=== PATIENT | male | born 1965 | race Caucasian/White ===

== ENCOUNTER → 2020-03-01 10:32 | Outpatient (BNVA) | payer OTHER, SELFPAY | PROVIDERS: PCP Family Medicine; Visit Provider Surgery | DX: Z01.818 Encounter for other preprocedural examination (principal); Z86.010 Personal history of colon polyps | CPT/HCPCS: 99202 ==

== ENCOUNTER 2020-04-23 11:05 | Day surgery (SDC) | payer OTHER, SELFPAY ==
[2020-04-19 09:40] VITALS: BMI 26.6
--- NOTE | 2020-04-21 09:48 | P.CONAN_ITS ---
HPI - Anesthesia Eval Consult details Narrative: 55yo M for Colonoscopy [facility] Past Medical History Medical History Anxiety Asthma Bipolar disorder Colon cancer screening Erectile dysfunction History of adenomatous polyp of colon History of tibial fracture Hypertension Mood disorder Pain Surgical History Surgical History Hx of left inguinal hernia repair S/P trigger finger release (Unknown) Social History Social History Alcohol intake: current Alcohol intake frequency: a few times a week Smoking Status: Never smoker Meds Allergies Allergy/AdvReac Type Severity Reaction Status Date / Time morphine [Morphine] Allergy Intermediate RASH Verified 04/23/20 11:17 penicillin G [Penicillin G] Allergy Intermediate RASH Verified 04/23/20 11:17 Home Medications Medication Instructions Recorded Confirmed Type albuterol sulfate 2.5 mg INHALATION Q4-6H PRN 02/26/20 04/19/20 History amlodipine 2.5 mg tablet 2.5 mg PO DAILY 02/26/20 04/19/20 History fluoxetine 20 mg capsule 20 mg PO DAILY 02/26/20 04/19/20 History gabapentin 800 mg tablet 800 mg PO BID 02/26/20 04/19/20 History hydroxyzine HCl 25 mg tablet 25 mg PO BEDTIME 02/26/20 04/19/20 History montelukast 10 mg tablet 10 mg PO DAILY 02/26/20 04/19/20 History quetiapine 25 mg tablet 25 mg PO DAILY 02/26/20 04/19/20 History albuterol sulfate 90 mcg/actuation 1 inh INHALATION QID 03/01/20 04/19/20 History aerosol inhaler ibuprofen 800 mg tablet 800 mg PO Q8H PRN 03/01/20 04/19/20 History oxycodone-acetaminophen 1 tab PO Q6H PRN 04/19/20 04/19/20 History tramadol 1 tab PO BID PRN 04/19/20 04/19/20 History Exam Exam Date and Time: April 21, 2020 0948 Height,Weight and Vital Signs: Height 5 ft 8 in Weight 79.379 kg Assessment and Plan Assessment Anesthesia Assessment: Chart Reviewed
[2020-04-23 11:19] VITALS: BP 133/78; PULSE 57; RESP 16; TEMP 35.9; O2SAT 98
--- NOTE | 2020-04-23 11:29 | MHC.SHP ---
Pre-Procedural Eval Section B Chief Complaint: History of Adenomatous Polyp of Colon,Screening Details of Present Illness: for screening colonoscopy Relevant Family History (Specify if Yes): No Relevant Social History: Alcohol Use Present Medications: see Short Stay Collaborative assessment Medical History: Significant History (bipolar d/o, HTN, asthma) History of Previous Operations: No relevant previous surgery Allergies: Allergies Allergy/AdvReac Type Severity Reaction Status Date / Time morphine [Morphine] Allergy Intermediate RASH Verified 04/23/20 11:17 penicillin G [Penicillin G] Allergy Intermediate RASH Verified 04/23/20 11:17 Review of Systems Sugical H&P ROS: Negative: Constitution, Cardiovascular, Respiratory, Neurological, Psychiatric, Hem-Onc, Allergic/Immunologic, Gastrointestinal, Genitourinary, Musculoskeletal, Integumentary, Endocrine and Eyes/Ears/Nose/Throat Exam Surgical H&P Exam: Normal: HEENT, Normal: Heart, Normal: Lungs, Normal: Extremities, Normal: Abdomen, Normal: Skin and Normal: Neurological Plan Diagnosis/Plan: Unchanged I have reviewed the history and physical and performed a pertinent physical examination on my patient. No changes have occurred unless specified.
[2020-04-23] MEDS: Lactated Ringers 1,000 ML 100 ML IVCONT (11:30)
--- NOTE | 2020-04-23 11:30 | HO.ANESPROP2 ---
[facility] Past Medical History Medical History Anxiety Asthma Bipolar disorder Colon cancer screening Erectile dysfunction History of adenomatous polyp of colon History of tibial fracture Hypertension Mood disorder Pain Surgical History Surgical History Hx of left inguinal hernia repair S/P trigger finger release (Unknown) Social History Social History Alcohol intake: current Alcohol intake frequency: a few times a week Smoking Status: Never smoker Use of substances other than those prescribed or required for medical reasons: Unknown Advance Directives: No Advance Directives Information Provided: No Advance Directives on File: No Meds Allergies Allergy/AdvReac Type Severity Reaction Status Date / Time morphine [Morphine] Allergy Intermediate RASH Verified 04/23/20 11:17 penicillin G [Penicillin G] Allergy Intermediate RASH Verified 04/23/20 11:17 Home Medications Medication Instructions Recorded Confirmed Type albuterol sulfate 2.5 mg INHALATION Q4-6H PRN 02/26/20 04/19/20 History amlodipine 2.5 mg tablet 2.5 mg PO DAILY 02/26/20 04/19/20 History fluoxetine 20 mg capsule 20 mg PO DAILY 02/26/20 04/19/20 History gabapentin 800 mg tablet 800 mg PO BID 02/26/20 04/19/20 History hydroxyzine HCl 25 mg tablet 25 mg PO BEDTIME 02/26/20 04/19/20 History montelukast 10 mg tablet 10 mg PO DAILY 02/26/20 04/19/20 History quetiapine 25 mg tablet 25 mg PO DAILY 02/26/20 04/19/20 History albuterol sulfate 90 mcg/actuation 1 inh INHALATION QID 03/01/20 04/19/20 History aerosol inhaler ibuprofen 800 mg tablet 800 mg PO Q8H PRN 03/01/20 04/19/20 History oxycodone-acetaminophen 1 tab PO Q6H PRN 04/19/20 04/19/20 History tramadol 1 tab PO BID PRN 04/19/20 04/19/20 History Exam Exam Date and Time: April 23, 2020 1130 Height,Weight and Vital Signs: Height 5 ft 8 in Weight 79.379 kg Last Vital Signs Temp 96.6 F L 04/23/20 11:19 Pulse 57 04/23/20 11:19 Resp 16 04/23/20 11:19 BP 133/78 04/23/20 11:19 Pulse Ox 98 04/23/20 11:19 Airway Mallampati Class: II TM Dist: >3cm Neck ROM: Full Loose/Missing/Broken Teeth: No Heart: RRR Lungs: CTA Assessment and Plan Assessment Anesthesia Assessment: Anesthesia Plan Discussed and Chart Reviewed Final Anesthetic Review NPO: Yes ASA Class: II Final Preanesthetic Review: Meds/Allgs Chart Reviewed, Consent Obtained/Reviewed and Anes Risks/Benef Reviewed Patient Risk: Low Procedure Risk: Low Anesthetic Plan Anesthetic Plan: MAC: Disposition: Standard PACU
--- NOTE | 2020-04-23 12:10 | PM.OP ---
Brief Operative Note Date of Service: 04/23/20 Pre-op diagnosis: colon ca screen Post-op diagnosis: same Procedure: colonoscopy Surgeon: Andrew Shore MD Anesthesia: MAC Estimated blood loss (mL): 0 Pathology: none sent Condition: stable Disposition: PACU
[2020-04-23 12:12] VITALS: BP 98/54; PULSE 55; RESP 12; TEMP 36.7; O2SAT 96
[2020-04-23 12:27] VITALS: BP 110/71; PULSE 53; RESP 16; O2SAT 97
--- NOTE | 2020-04-23 12:39 | OP_ITS ---
SURGEON: Andrew Shore MD INDICATIONS: The patient is a 55-year-old male, who had previously undergone colonoscopy in 2015 with a poor bowel prep. I recommended a followup colonoscopy in 3 years because of that. He understood technique of the procedure and he was aware of the risks, benefits, and alternatives. PREOPERATIVE DIAGNOSIS: Colon cancer screening. POSTOPERATIVE DIAGNOSIS: Normal colonoscopy findings with suboptimal bowel prep. PROCEDURE PERFORMED: Colonoscopy. ESTIMATED BLOOD LOSS: COMPLICATIONS: ANESTHESIA: ASSISTANTS: SPECIMENS: DESCRIPTION OF PROCEDURE: He was brought to the operating room, placed in left lateral decubitus position under monitored anesthesia care. A full digital rectal exam was done. There were no palpable anal canal lesions. The tip of the Olympus colonoscope was gently introduced through the anal orifice and advanced with insufflation all the way to the cecum. The cecum was intubated. The cecum was identified by visualization of the ileocecal valve as well as the appendiceal orifice. The cecal mucosa unremarkable. The scope was gradually withdrawn with careful examination of the entire colonic mucosa being done with scope withdrawal. There was note of flecks of small thin brownish stool throughout the entire colon and we had to do a lot of irrigation to clear the mucosa. The patient therefore had a suboptimal bowel prep. In spite of this, it was unlikely that any significant size lesion was missed because of irrigation being done to clear the mucosa. The rectum was reached and there were no lesions seen. The anal canal was unremarkable. The scope was withdrawn completely with de-sufflation. The patient tolerated the procedure well. There were no complications noted. In view of this suboptimal bowel prep, I would recommend another colonoscopy in the next 5 years. MD JUSTICE Schreiber/KODAKL / [id number]
[2020-04-23 12:42] VITALS: BP 107/64; PULSE 56; RESP 16; O2SAT 98
--- NOTE | 2020-04-23 12:59 | PC.NURSE ---
1248 JOANNA PO REQ BR TO URINATE MONITORS AND IVF DCD TOTAL IN IS 550 ML LR, ASST OOB AMB W RN AND USING CANE, MOSTLY STEADY, VOID AND PASS LARGE AMOUNTS AIR, PT REQ IV TO STAY IN , DISCUSSED WITH PT THAT IT WOULD BE REMOVED, AMB TO BED IV DCD TIP INTACT PRESSURE AND DRESSING TO SITE DRESSED SELF CALL MEDRANO IN REACH TO DISCH VIA WC
--- NOTE | 2020-04-23 17:46 | HO.POSTANES ---
Post Anesthesia Evaluation Post Anesthesia Evaluation Vital Signs: Vital Signs Temp Pulse Resp BP Pulse Ox 04/23/20 12:42 56 16 107/64 98 04/23/20 12:27 53 16 110/71 97 04/23/20 12:12 98.1 F 55 12 98/54 L 96 04/23/20 11:19 96.6 F L 57 16 133/78 98 Anesthesia: Monitored Mental Status: Awake Pain Control: Satisfactory Nausea/Vomiting: None Hydration: Adequate Anesthesia-Related Issues: No Anes. Related Issues
== END 2020-04-23 13:24 ==
LOC: HO.SSS 11:06
PROVIDERS: PCP Family Medicine; Visit Provider Surgery
PROC: 0DJD8ZZ Inspection of Lower Intestinal Tract, Via Natural or Artificial Opening Endoscopic (ICD-10-PCS; CPT 45378; principal; 2020-04-23 11:30)
DX: Z12.11 Encounter for screening for malignant neoplasm of colon (principal); Z86.010 Personal history of colon polyps; I10 Essential (primary) hypertension; J45.909 Unspecified asthma, uncomplicated; F31.9 Bipolar disorder, unspecified; Z79.899 Other long term (current) drug therapy; Z88.0 Allergy status to penicillin; Z88.8 Allergy status to other drugs, medicaments and biological substances
CPT/HCPCS: G0105

== ENCOUNTER → 2020-06-07 08:30 | Outpatient (BNVA) | payer OTHER, SELFPAY | PROVIDERS: Visit Provider Orthopaedic Surgery | DX: M25.512 Pain in left shoulder (principal) | CPT/HCPCS: 20610; 99202; J1100 ==

== ENCOUNTER 2021-03-14 08:02 | Outpatient (REF) | payer OTHER, SELFPAY ==
--- NOTE | ~2021-03-14 | XR_ITS ---
EXAMINATION: XR SHOULDER, LEFT CLINICAL INFORMATION: Pain COMPARISON: [facility] x-ray April 2017 TECHNIQUE: Three views of the left shoulder. FINDINGS: Bone alignment is normal. No fracture or dislocation is seen. There is mild arthritis at the acromioclavicular joint. There is a small undersurface acromial osteophyte. There is degenerative changes of the greater tuberosity. The glenohumeral joint is normal. Findings are similar to 2018 exam. XR/XR shoulder LT min 2V IMPRESSION: Degenerative changes.
--- NOTE | ~2021-03-14 | XR_ITS ---
EXAMINATION: XR HIP, LEFT CLINICAL INFORMATION: Pain COMPARISON: None TECHNIQUE: Two views of the left hip. FINDINGS: Bone alignment is normal. No fracture or dislocation is seen. There is moderate left hip arthritis with joint space narrowing and osteophyte formation. Soft tissues are unremarkable. XR/XR hip LT min 2V IMPRESSION: Moderate left hip arthritis.
--- NOTE | ~2021-03-14 | XR_ITS ---
EXAMINATION: XR KNEE, RIGHT CLINICAL INFORMATION: Pain COMPARISON: None TECHNIQUE: Four views of the right knee. FINDINGS: Bone alignment is normal. No fracture or dislocation is seen. There is medial femoral tibial joint space narrowing. There is a small osteophyte at the patellofemoral joint. There is no joint effusion. XR/XR knee RT 4V IMPRESSION: Mild degenerative changes.
== END 2021-03-14 08:03 | disposition home or self-care (01) ==
LOC: HO.XRAY 08:02
PROVIDERS: PCP Family Medicine; Visit Provider Family Medicine
DX: M25.512 Pain in left shoulder (principal); M25.552 Pain in left hip; M25.561 Pain in right knee
CPT/HCPCS: 73030; 73502; 73564

== ENCOUNTER 2023-02-07 00:05 | Inpatient (IN) | payer OTHER, SELFPAY ==
[2023-02-07] VITALS (7 sets, daily range): BP systolic 138–190; BP diastolic 64–110; PULSE 61–76; RESP 16–19; TEMP 36–37.3; O2SAT 97–100; BMI 21.9; BMI 22.5
--- NOTE | ~2023-02-07 | CT_ITS ---
EXAMINATION: CT CHEST WITH CONTRAST CLINICAL INFORMATION: Question sternal osteomyelitis COMPARISON: None available. TECHNIQUE: Multidetector volumetric CT imaging of the chest was obtained after the administration of 65 mL of Omnipaque 350 intravenous contrast without immediate adverse reactions. Axial MIP volume rendering provided. Sagittal and coronal reformatted images were obtained. This CT examination was performed using dose optimization techniques as appropriate, variously including the following: *Automated exposure control *Adjustment of mA and/or kV according to patient size (this includes techniques or standardized protocols for targeted exams where dose is matched to indication/reason for exam; i.e. extremities or head) *Use of iterative reconstruction technique DLP: 239 mGy-cm FINDINGS: LUNGS: Mild bronchiectasis with associated mucoid impaction in the basilar left lower lobe. No regions of consolidation bilaterally. MEDIASTINUM: The visualized thyroid gland is unremarkable. There are subcentimeter mediastinal lymph nodes within the range of normal variation. Cardiac size is within normal limits; no pericardial effusion. Coronary artery calcifications are present. The aorta is unremarkable. PLEURA: There is no pleural effusion. No pleural mass or thickening. AXILLA: No lymphadenopathy. UPPER ABDOMEN: Unremarkable OSSEOUS STRUCTURES: There is soft tissue swelling/edema along the midline chest wall, greatest in the visualized lower neck and upper chest. There are foci of soft tissue gas anteriorly at the level of the thoracic inlet extending to the skin, suggesting an overlying skin defect. No appreciable focal fluid collection. No appreciable cortical erosion in the sternum to specifically indicate osteomyelitis. Degenerative changes are noted in the spine. CT/CT chest w IV con IMPRESSION: 1. Soft tissue swelling/edema along the midline chest wall, greatest in the visualized lower neck and upper chest. Foci of soft tissue gas anteriorly at the level of the thoracic inlet extending to the skin, suggesting an overlying skin defect though gas secondary to infection would be difficult to exclude. No appreciable focal fluid collection or sternal abnormality to specifically indicate osteomyelitis, though if clinically warranted this could be better assessed with MRI. 2. Coronary artery calcifications. Correlation with cardiac risk factors is recommended. 3. Mild bronchiectasis with associated mucoid impaction in the basilar left lower lobe, which could be sequelae of old infection.
[2023-02-07] MEDS: 0.9 % Sodium Chloride 1,000 ML 999 ML IV (01:15)
[2023-02-07 01:17] LABS: MANUAL DIFF FLAG NO
--- NOTE | 2023-02-07 01:19 | ED_ITS ---
HPI - Skin/Abscess/Foreign Bdy General Chief complaint: Skin/Abscess/Foreign Body Stated complaint: mask infection on neck Time Seen by Provider: 02/07/23 00:52 Source: patient Mode of arrival: ambulatory Limitations: no limitations History of Present Illness HPI narrative: Patient with history of anxiety, bipolar disorder does katina his skin when he gets anxious used a needle to brown his manubrial skin which he sterilized using the heat 3 days ago noticed increased swelling of the skin with redness and pus discharge which is getting worse had low-grade fever at home. Related Data Home Medications Medication Instructions Recorded Confirmed albuterol sulfate 2.5 mg/3 mL 2.5 mg inhalation Q4-6H PRN 02/26/20 04/19/20 (0.083 %) solution for nebulization Shortness Of Breath Or Wheezing amlodipine 2.5 mg tablet 2.5 mg PO DAILY 02/26/20 04/19/20 fluoxetine 20 mg capsule (Prozac) 20 mg PO DAILY 02/26/20 04/19/20 gabapentin 800 mg tablet 800 mg PO BID 02/26/20 04/19/20 hydroxyzine HCl 25 mg tablet 25 mg PO BEDTIME 02/26/20 04/19/20 montelukast 10 mg tablet 10 mg PO DAILY 02/26/20 04/19/20 (Singulair) quetiapine 25 mg tablet (Seroquel) 25 mg PO DAILY 02/26/20 04/19/20 albuterol sulfate 90 mcg/actuation 1 inh inhalation QID 03/01/20 04/19/20 aerosol inhaler ibuprofen 800 mg tablet 800 mg PO Q8H PRN Pain 03/01/20 04/19/20 oxycodone-acetaminophen 5 mg-325 1 tab PO Q6H PRN severe pain 04/19/20 04/19/20 mg tablet tramadol 50 mg tablet 1 tab PO BID PRN Pain 04/19/20 04/19/20 Previous Rx's Medication Instructions Recorded sodium,potassium,mag sulfates 17.5 See Rx Instructions PO .COMPLEX 03/01/20 gram-3.13 gram-1.6 gram oral soln #354 mL (Suprep Bowel Prep Kit) Allergies Allergy/AdvReac Type Severity Reaction Status Date / Time morphine [Morphine] Allergy Intermediate RASH Verified 06/07/20 08:41 penicillin G [Penicillin G] Allergy Intermediate RASH Verified 06/07/20 08:41 Review of Systems 2 Review of Systems: Yes all other systems are reviewed and are negative [facility] Past Medical History Medical History Pain History of tibial fracture History of adenomatous polyp of colon Colon cancer screening Bipolar disorder Mood disorder Asthma Erectile dysfunction Hypertension Anxiety Surgical History Hx of left inguinal hernia repair S/P trigger finger release (Unknown) Social History Social History Alcohol intake: current Alcohol intake frequency: a few times a week Advance Directives: No Advance Directives Information Provided: Yes Current occupational status: retired Physical Exam 2 Vital Signs: Vital Signs: Last Vital Signs Temp 99.2 F 02/07/23 00:34 Pulse 76 02/07/23 00:34 Resp 18 02/07/23 00:34 BP 170/89 H 02/07/23 00:34 Pulse Ox 99 02/07/23 00:34 O2 Del Method Room Air 02/07/23 00:34 BMI result Body Mass Index 21.9 Appearance: Alert. Oriented X3. No acute distress. ENT: Pharynx normal. Oral Mucosa moist Neck: Normal inspection. Neck supple. CVS: Normal heart rate and rhythm. Pulses normal. Respiratory: No respiratory distress. Equal air entry bilateral, no wheezing/rales/rhonchi Abdomen: Soft and nontender. Bowel sounds are present, no mass palpable, no CVA tenderness Skin: Skin warm and dry. Abscess upper mid chest Extremities: No lower extremity edema. No calf tenderness Neuro: Oriented X 3. No motor deficit. No sensory deficit.No cerebellar signs , cranial nerves II-XII intact Medications Administered Discontinued Medications Generic Name Dose Route Start Last Admin Trade Name Freq PRN Reason Stop Dose Admin Diphenhydramine HCl 25 mg 02/07/23 01:19 02/07/23 01:24 Diphenhydramine Hcl 50 Mg/Ml Vial IVPUSH 02/07/23 01:20 25 mg ONCE ONE Administration Sodium Chloride 1,000 mls @ 999 mls/hr 02/07/23 01:00 02/07/23 01:15 Ns IV 02/07/23 02:00 999 mls/hr .Q1H1M ONE Administration Vancomycin HCl 1,000 mg/ 270 mls @ 270 mls/hr 02/07/23 01:00 02/07/23 01:51 Sodium Chloride IV 02/07/23 01:59 270 mls/hr ONCE ONE Administration Piperacillin Sod/Tazobactam 50 mls @ 100 mls/hr 02/07/23 01:00 02/07/23 01:24 Sod 3.375 gm/ Sodium Chloride IV 02/07/23 01:29 100 mls/hr ONCE ONE Administration Iohexol 65 ml 02/07/23 01:49 02/07/23 01:50 Iohexol 350 Mg/Ml 100 Ml Infus..Btl IV 02/07/23 01:50 65 ml ONCE ONE Administration Medical Decision Making Medical Decision Making [facility] Narrative: Patient with chest wall abscess with surrounding cellulitis normal white counts normal lactic acid chest CT pending to rule out osteomyelitis of the manubrium started on vancomycin and Zosyn patient had last tetanus shot within 5 years I&D of the abscess done CT scan final report is pending Differential Diagnosis Differential Diagnoses: The differential diagnosis associated with the presentation includes Abscess cellulitis/osteomyelitis Consult Healthcare Provider Management of the patient was discussed with: Hospitalist Lab Data [facility] Lab Attestation statement: I reviewed the patient's lab results. 02/07/23 01:10 02/07/23 01:10 Labs: Lab Results 02/07/23 Range/Units 01:10 WBC 8.3 (4.8-10.8) X10*3/uL RBC 5.14 (4.60-5.80) X10*6/uL Hgb 15.2 (14.0-18.0) g/dl Hct 44.9 (42.0-52.0) % MCV 87.4 (80.0-98.0) fL MCH 29.6 (27.0-33.0) pg MCHC 33.9 (31.0-36.0) g/dl RDW 12.9 (11.0-16.0) % Plt Count 272 (160-400) X10*3/uL MPV 9.1 L (9.4-12.4) fL Immature Gran % (Auto) 0.1 (0.0-0.4) % Neut % (Auto) 59.4 (45-73) % Lymph % (Auto) 27.6 (20-40) % [place] % (Auto) 9.6 (2-11) % Eos % (Auto) 2.9 (0-4) % Baso % (Auto) 0.4 (0-2) % Lymph # (Auto) 2.3 (1.2-4.9) X10*3/uL [place] # (Auto) 0.8 (0.1-1.2) X10*3/uL Eos # (Auto) 0.2 (0.0-0.4) X10*3/uL Baso # (Auto) 0.0 (0.0-0.2) X10*3/uL Abs Immat Gran (auto) 0.01 (0.00-0.03) X10*3/uL Absolute Neuts (auto) 5.0 (2.0-8.3) x10*3/uL Absolute Nucleated RBC 0.000 (0.0-0.012) X10*3/uL Nucleated RBC % (auto) 0.0 (0.0-0.2) /100WBC Sodium 143 (135-145) mmol/L Potassium 3.5 (3.3-5.1) mmol/L Chloride 108 (96-108) mmol/L Carbon Dioxide 24 (22-29) mmol/L Anion Gap 15 (12-20) BUN 8 L (9-16) mg/dL Creatinine 0.84 (0.5-1.4) mg/dL Estim Creat Clear Calc 87.3 Estimated GFR > 60 Random Glucose 75 (60-115) mg/dL Lactic Acid 1.4 (0.5-2.0) mmol/L Calcium 9.8 (8.4-10.2) mg/dL Independent Interpretation I performed an independent interpretation of an: CT Scan Interpretation: Soft tissue swelling with abscess Procedures Abscess I/D Site: chest Local Anesthetic: lidocaine 1% Amount of anesthesia used (mL): 5 Technique: incised with blade Amount of fluid expressed (mL): 1 Sent for culture/gram staining?: Yes Irrigation: No Packing used?: [email or web address] Discharge Plan Discharge Clinical Impression: Abscess of skin or subcutaneous tissue, Cellulitis Patient Disposition: Admitted As Inpatient
[2023-02-07 01:22] LABS: Basophils Percent Auto 0.4 % (0-2); Eosinophils Absolute Auto 0.2 X10*3/uL (0.0-0.4); Eosinophils Percent Auto 2.9 % (0-4); Hematocrit 44.9 % (42.0-52.0); Hemoglobin 15.2 g/dl (14.0-18.0); Imm Gran Abs Auto 0.01 X10*3/uL (0.00-0.03); Imm Gran Pct Auto 0.1 % (0.0-0.4); Lymphocytes Absolute Auto 2.3 X10*3/uL (1.2-4.9); Lymphocytes Percent Auto 27.6 % (20-40); Mean Corpuscular HGB Conc 33.9 g/dl (31.0-36.0); Mean Corpuscular Hemoglobin 29.6 pg (27.0-33.0); Mean Corpuscular Volume 87.4 fL (80.0-98.0); Mean Platelet Volume 9.1 fL (9.4-12.4); Monocytes Absolute Auto 0.8 X10*3/uL (0.1-1.2); Monocytes Percent Auto 9.6 % (2-11); Neutrophils Percent Auto 59.4 % (45-73); Platelet Count 272 X10*3/uL (160-400); Red Blood Count 5.14 X10*6/uL (4.60-5.80); Red Cell Distribution Width 12.9 % (11.0-16.0); White Blood Count 8.3 X10*3/uL (4.8-10.8)
[2023-02-07] MEDS: Piperacillin Sodium/Tazobactam 3.375 GM in 0.9 % Sodium Chloride 50 ML IV (01:24)
[2023-02-07] MEDS: diphenhydrAMINE HCL 50 MG/ML VIAL 25 MG IVPUSH (01:24)
[2023-02-07 01:26] LABS: Lactic Acid 1.4 mmol/L (0.5-2.0)
[2023-02-07 01:29] LABS: Anion Gap 15 (12-20); Blood Urea Nitrogen 8 mg/dL (9-16); Calcium 9.8 mg/dL (8.4-10.2); Carbon Dioxide 24 mmol/L (22-29); Chloride 108 mmol/L (96-108); Creatinine Clr Calc Pharmacy 87.3; Estimated Glomerular Filt Rate > 60; Glucose Random 75 mg/dL (60-115); Potassium 3.5 mmol/L (3.3-5.1); Sodium 143 mmol/L (135-145)
[2023-02-07] MEDS: iohexoL 350 MG/ML 100 ML INFUS..BTL 65 ML IV (01:50)
[2023-02-07] MEDS: vancomycin HCL 1,000 MG in 0.9 % Sodium Chloride 250 ML 270 MG IV ×2 (01:51→16:07)
[2023-02-07 02:23] LABS: Erythrocyte Sedimentation Rate 16 MM/HR (0-15)
--- NOTE | 2023-02-07 03:04 | P.HPHOSP_ITS ---
History of Present Illness Date of Service: 02/07/23 Chief Complaint: Skin infection This is a 58-year-old male with pertinent history of bipolar disorder who presents to the emergency department for evaluation of skin infection. Patient states whenever he gets anxious, he picks his skin. He states that about 4 days prior to presentation, he pierced his skin over the sternum with a needle. Since then, he has noticed pain, redness and swelling which has gotten progressively worse. Also it has been draining foul-smelling purulent pus. Has had low-grade fever and chills at home. No chest discomfort, palpitations, shortness of breath, abdominal pain, changes in urinary or bowel habits. In the emergency department, imaging with soft tissue swelling along midline chest wall without focal fluid collection Review of Systems 2 Constitutional: Constitutional: Reports chills and Reports fever(s) Cardiovascular: Cardiovascular: Reports no additional cardiovascular complaints Respiratory: Respiratory: Reports no additional respiratory complaints Gastrointestinal: Gastrointestinal: Reports no additional gastrointestinal complaints Musculoskeletal: Musculoskeletal: Reports no additional musculoskeletal complaints [facility] Medical History Pain History of tibial fracture History of adenomatous polyp of colon Colon cancer screening Bipolar disorder Mood disorder Asthma Erectile dysfunction Hypertension Anxiety Pertinent family history: No family history of early CAD Surgical History Hx of left inguinal hernia repair S/P trigger finger release (Unknown) Social History Alcohol intake: current Alcohol intake frequency: a few times a week Advance Directives: No Advance Directives Information Provided: Yes Current occupational status: retired Meds Allergies Allergy/AdvReac Type Severity Reaction Status Date / Time morphine [Morphine] Allergy Intermediate RASH Verified 06/07/20 08:41 penicillin G [Penicillin G] Allergy Intermediate RASH Verified 06/07/20 08:41 Home Medications Medication Instructions Recorded Confirmed Last Taken Type albuterol sulfate 2.5 mg/3 mL 2.5 mg inhalation Q4-6H PRN 02/26/20 04/19/20 Unknown History (0.083 %) solution for nebulization Shortness Of Breath Or Wheezing amlodipine 2.5 mg tablet 2.5 mg PO DAILY 02/26/20 04/19/20 Unknown History fluoxetine 20 mg capsule (Prozac) 20 mg PO DAILY 02/26/20 04/19/20 Unknown History gabapentin 800 mg tablet 800 mg PO BID 02/26/20 04/19/20 Unknown History hydroxyzine HCl 25 mg tablet 25 mg PO BEDTIME 02/26/20 04/19/20 Unknown History montelukast 10 mg tablet 10 mg PO DAILY 02/26/20 04/19/20 Unknown History (Singulair) quetiapine 25 mg tablet (Seroquel) 25 mg PO DAILY 02/26/20 04/19/20 Unknown History albuterol sulfate 90 mcg/actuation 1 inh inhalation QID 03/01/20 04/19/20 Unknown History aerosol inhaler ibuprofen 800 mg tablet 800 mg PO Q8H PRN Pain 03/01/20 04/19/20 Unknown History oxycodone-acetaminophen 5 mg-325 1 tab PO Q6H PRN severe pain 04/19/20 04/19/20 Unknown History mg tablet tramadol 50 mg tablet 1 tab PO BID PRN Pain 04/19/20 04/19/20 Unknown History Physical Exam 2 Vital Signs and Narrative: Vital Signs: Last Vital Signs Temp 99.2 F 02/07/23 00:34 Pulse 76 02/07/23 00:34 Resp 18 02/07/23 00:34 BP 170/89 H 02/07/23 00:34 Pulse Ox 99 02/07/23 00:34 O2 Del Method Room Air 02/07/23 00:34 BMI result Body Mass Index 21.9 Middle-aged male lying in bed in no distress Neck supple, no JVD Skin over the sternum with erythema, warmth and tenderness draining serosanguineous discharge Regular rate and rhythm, S1-S2 heard Regular breath sounds bilaterally, no wheezing or crackles appreciated Abdomen soft nontender, no guarding, no rigidity Patient is awake, alert and oriented to self, place, time and person ; no focal motor deficit Psych: Normal mood No pedal edema Results Labs 02/07/23 01:10 02/07/23 01:10 Labs: Laboratory Results - last 24 hr 02/07/23 01:10 MCV 87.4 MCH 29.6 MCHC 33.9 RDW 12.9 Plt Count 272 MPV 9.1 L Immature Gran % (Auto) 0.1 Neut % (Auto) 59.4 Lymph % (Auto) 27.6 [place] % (Auto) 9.6 Eos % (Auto) 2.9 Baso % (Auto) 0.4 Lymph # (Auto) 2.3 [place] # (Auto) 0.8 Eos # (Auto) 0.2 Baso # (Auto) 0.0 Abs Immat Gran (auto) 0.01 Absolute Neuts (auto) 5.0 Absolute Nucleated RBC 0.000 Nucleated RBC % (auto) 0.0 ESR 16 H Anion Gap 15 Estim Creat Clear Calc 87.3 Estimated GFR > 60 Random Glucose 75 Lactic Acid 1.4 Calcium 9.8 Imaging Radiologist's Impressions: Impressions Chest CT 02/07/23 01:50 IMPRESSION: 1. Soft tissue swelling/edema along the midline chest wall, greatest in the visualized lower neck and upper chest. Foci of soft tissue gas anteriorly at the level of the thoracic inlet extending to the skin, suggesting an overlying skin defect though gas secondary to infection would be difficult to exclude. No appreciable focal fluid collection or sternal abnormality to specifically indicate osteomyelitis, though if clinically warranted this could be better assessed with MRI. 2. Coronary artery calcifications. Correlation with cardiac risk factors is recommended. 3. Mild bronchiectasis with associated mucoid impaction in the basilar left lower lobe, which could be sequelae of old infection. Assessment and Plan (1) Cellulitis: Status: Acute Plan This is a 58-year-old male with pertinent history of bipolar disorder who presents to the emergency department for evaluation of skin infection. #. Purulent cellulitis: Will admit patient and initiate empiric IV antibiotics due to extensive cellulitis. No sepsis. Follow blood cultures. No focal fluid collection on imaging. #. Mood disorder: Continue home mood stabilizers Med rec pending DVT prophylaxis: Lovenox Admit as inpatient and will require two night minimum hospital stay for IV antibiotics Time Spent With Patient Time: Total time managing care of this patient today ____ minutes. Quality Stroke Does the patient have a stroke diagnosis?: No VTE Prior VTE?: No VTE Risk Level:: Medical - moderate - high VTE Device Contraindication: Treatment Not Indicated VTE Drug Contraindication: N/A - Med Ordered
[2023-02-07] MEDS: Lidocaine HCl 1 % MPF 5 ML VIAL INFILTRATI (03:12)
[2023-02-07] MEDS: HYDROmorphone HCl 1 MG/ML SYRINGE IVPUSH ×2 (03:26→04:20)
[2023-02-07] MEDS: vancomycin HCL 750 MG in 0.9 % Sodium Chloride 250 ML 265 MG IV (03:40)
[2023-02-07 05:57] LABS: MANUAL DIFF FLAG NO
[2023-02-07 06:00] LABS: Basophils Percent Auto 0.3 % (0-2); Eosinophils Absolute Auto 0.2 X10*3/uL (0.0-0.4); Eosinophils Percent Auto 2.3 % (0-4); Hematocrit 38.2 % (42.0-52.0); Hemoglobin 12.9 g/dl (14.0-18.0); Imm Gran Abs Auto 0.02 X10*3/uL (0.00-0.03); Imm Gran Pct Auto 0.2 % (0.0-0.4); Lymphocytes Absolute Auto 2.3 X10*3/uL (1.2-4.9); Lymphocytes Percent Auto 24.4 % (20-40); Mean Corpuscular HGB Conc 33.8 g/dl (31.0-36.0); Mean Corpuscular Hemoglobin 29.9 pg (27.0-33.0); Mean Corpuscular Volume 88.4 fL (80.0-98.0); Mean Platelet Volume 9.5 fL (9.4-12.4); Monocytes Absolute Auto 0.9 X10*3/uL (0.1-1.2); Monocytes Percent Auto 9.1 % (2-11); Neutrophils Absolute Auto 6.1 x10*3/uL (2.0-8.3); Neutrophils Percent Auto 63.7 % (45-73); Platelet Count 255 X10*3/uL (160-400); Red Blood Count 4.32 X10*6/uL (4.60-5.80); Red Cell Distribution Width 12.9 % (11.0-16.0); White Blood Count 9.5 X10*3/uL (4.8-10.8)
[2023-02-07 06:32] LABS: Anion Gap 11 (12-20); Blood Urea Nitrogen 7 mg/dL (9-16); Calcium 8.7 mg/dL (8.4-10.2); Carbon Dioxide 22 mmol/L (22-29); Chloride 111 mmol/L (96-108); Creatinine Clr Calc Pharmacy 97.8; Estimated Glomerular Filt Rate > 60; Glucose Random 116 mg/dL (60-115); Potassium 3.5 mmol/L (3.3-5.1); Sodium 140 mmol/L (135-145)
--- NOTE | 2023-02-07 07:01 | PHA.PROG ---
Admission Date/Time: February 07, 2023 03:02 Indication: SKIN Weight in k.2 kg Adjusted body weight in K.12 [place] body weight in K.4 Obesity Dosing Indication % IBW: Serum Creatinine - Last 168 Hours 02/07/23 02/07/23 01:10 05: Creatinine 0.84 0.75 Estimated CrCl and GFR - Last 168 Hours 02/07/23 02/07/23 01:10 05:23 Estim Creat Clear Calc 87.3 97.8 Estimated GFR > 60 > 60 Vancomycin Loading Dose: 1750 Current Vancomycin Dosing Regimen: 1000 q12 Vancomycin Monitoring using AUC goal of 400 - 600 range with trough as surrogate marker: 568 Date and Time for next Vancomycin Level to be drawn: 02/08 @1400 Pharmacist Comments on Vancomycin Plan: Vancomycin dosing will take advantage of [employer] as a clinical decision support tool that uses Bayesian modeling to calculate individual patient's pharmacokinetic parameters and forecast the patient's drug concentration time course with the target goal AUC 24 range of 400 - 600 mg/L/hr.
[2023-02-07] MEDS: 0.9 % Sodium Chloride Flush 3 ML SYRINGE IVFLUSH ×2 (07:40→19:13)
[2023-02-07] MEDS: Acetaminophen 325 MG TABLET 650 MG PO ×2 (07:40→23:39)
[2023-02-07] MEDS: Enoxaparin Sodium 40 MG/0.4 ML SYRINGE SUBCUT (07:40)
[2023-02-07] MEDS: HYDROmorphone HCl 0.5 MG/0.5 ML SYRINGE IVPUSH ×3 (10:02→21:50)
--- NOTE | 2023-02-07 10:09 | MHC.CM.PN ---
CM ATTEMPTED TO SEE PT WHO WAS OUT OF ROOM CM TO REVISIT
--- NOTE | 2023-02-07 10:14 | MHC.CM.PN ---
PT REPORTS HE LIVES ALONE AND IS FULLY INDEPENDENT HE DENIES HAVING ANY SERVICES PT REPORTS HE HAS A CANE AND NEBULIZER FOR DME HE DECLINES TO COMPLETE A HCP PCP: JAMI MALONEY IMM DELIVERED DCP: HOME NO SERVICES PT EXPECTS TO HAVE A RIDE BUT IS AWARE CM CAN ASSIST IF NEEDED
--- NOTE | 2023-02-07 11:38 | PM.EVENT ---
Event Note Date of Service: 02/07/23 Event Note: 58-year-old male with pertinent history of bipolar disorder who presents to the emergency department for evaluation of skin infection. #. Purulent cellulitis mid upper chest/no sepsis Complaining of anterior chest pain, no fevers, normal WBC Status post I&D by ED, CT chest showed soft tissue swelling edema along midline chest wall with foci of soft tissue gas, no appreciable fluid collection or sternal abnormality noted to indicate osteomyelitis, coronary artery calcification noted Continue IV vancomycin blood cultures x2 pending, gm stain culture sensitivity from anterior chest wall abscess pending #. Mood disorder: Await med reconciliation DVT prophylaxis: Lovenox Patient will need continued inpatient hospitalization for IV antibiotics Time Spent With Patient Time: Total time managing care of this patient today ____ minutes.
--- NOTE | 2023-02-07 14:13 | PHA.MEDREC ---
Pharmacy Consult ? Medication Reconciliation Pharmacy has completed the medication reconciliation. SPOKE TO PT TO SEE IF HE KNOWS MEDICATIONS. HE LISTED MEDICATIONS BUT THERE WAS NO CLAIM HISTORY AVAILABLE AND HE TOLD ME HE IS ON 50 MG VALIUM TO KEEP HIM CALM SO I ASKED WHAT PHARMACY HE FILLS AT AND HE TOLD ME [facility]. I CALLED THEM AT [phone] AND THEY TOLD ME THE PATIENT HADN'T FILLED ANY MEDICATIONS SINCE 09/2021. PDMP ALSO CONFIRMS NO MEDICATION FILLED SINCE 09/2021. PATIENT CLAIMS TO BE ON ALBUTEROL HFA, ALBUTEROL FOR NEBULIZER, FLUOXETINE, GABAPENTIN, HYDROXYZINE, IBUPROFEN 800 MG, MONTELUKAST, QUETIAPINE, TRAMADOL, AND FLONASE. HOWEVER WITH NO CLAIM HISTORY OR DOSING INFORMATION INDICATING CURRENT USE, IT WAS DECIDED TO LEAVE THE MEDS OUT OF THE HOME MED LIST AND CONTACT THE PROVIDER WITH THIS INFORMATION.
[2023-02-07] MEDS: oxyCODONE HCl Immed Release 5 MG TABLET PO ×2 (19:12→23:39)
[2023-02-08] VITALS (7 sets, daily range): BP systolic 125–145; BP diastolic 77–83; PULSE 56–93; RESP 16–19; TEMP 36–36.6; O2SAT 98–100
[2023-02-08] MEDS: HYDROmorphone HCl 0.5 MG/0.5 ML SYRINGE IVPUSH ×4 (02:11→21:16)
[2023-02-08] MEDS: vancomycin HCL 1,000 MG in 0.9 % Sodium Chloride 250 ML 270 MG IV (03:25)
[2023-02-08 06:09] LABS: Creatinine Clr Calc Pharmacy 90.8; Estimated Glomerular Filt Rate > 60
[2023-02-08] MEDS: ondansetron HCL 4 MG/2 ML VIAL IVPUSH (06:23)
[2023-02-08] MEDS: 0.9 % Sodium Chloride Flush 3 ML SYRINGE IVFLUSH ×3 (07:55→23:29)
[2023-02-08] MEDS: oxyCODONE HCl Immed Release 5 MG TABLET PO (12:11)
[2023-02-08] MEDS: Acetaminophen 325 MG TABLET 650 MG PO (12:11)
--- NOTE | 2023-02-08 12:11 | P.CONGS_ITS ---
History of Present Illness Consult details Consult date: 02/08/23 Reason for consult: other (chest wall abscess ) Requesting physician: Mickey Cottrell Narrative: 58 year old male with PMH of anxiety, bipolar disorder who presented to the ED with complaints of neck/chest redness and pain. He reports he pierces his own skin with a needle when he gets anxious. He was piercing his manubrial skin last week and he did not sterilize his needle. He began to notice redness, pain and swelling at the site last Sunday which progressively worsened and began to drain pus. This was associated with subjective fevers. Due to the severity of pain and difficulty breathing from the mass, he decided to seek care in the ED. A chest CT was obtained which showed soft tissue swelling/edema along the midline chest wall with foci of soft tissue gas anteriorly at the level of the thoracic inlet extending to the skin, consistent with an abscess. An I&D of the abscess was performed in the ED under local and packed with iodoform packing. He was admitted to the hospitalist service for further treatment of the cellulitis and abscess. He was started on IV vanco. Today, the patient reports improvement in the pain and he feels overall better and wants to go home. Review of Systems 2 Constitutional: Constitutional: Denies chills and Reports fever(s) ENT: Denies dizziness Cardiovascular: Cardiovascular: Denies chest pain Respiratory: Respiratory: Reports other (difficulty breathing due to pain) Gastrointestinal: Gastrointestinal: Denies abdominal pain, Denies nausea and Denies vomiting Integumentary/Breasts: Skin/Breast: Reports as per HPI and Denies jaundice Neurologic: Denies dizziness PMFSH Past Medical History Medical History Pain History of tibial fracture History of adenomatous polyp of colon Colon cancer screening Bipolar disorder Mood disorder Asthma Erectile dysfunction Hypertension Anxiety Surgical History Surgical History Hx of left inguinal hernia repair S/P trigger finger release (Unknown) Social History Social History Household Members: None Housing: House Do you presently have visiting nurse or other home services: No Alcohol intake: current Alcohol intake frequency: a few times a month Alcohol type: beer Patient Tobacco Use Status: Never used Tobacco Substance Use Type: Crack/Cocaine service: No Current occupational status: retired Meds Allergies Allergy/AdvReac Type Severity Reaction Status Date / Time morphine [Morphine] Allergy Intermediate RASH Verified 06/07/20 08:41 penicillin G [Penicillin G] Allergy Intermediate RASH Verified 06/07/20 08:41 Active Medications: Current Medications Acetaminophen (Acetaminophen 325 Mg Tablet) 650 mg PO Q6H PRN PRN Reason: Pain, Mild (Pain Scale 1-3) Last Admin: 02/07/23 23:39 Dose: 650 mg Enoxaparin Sodium (Enoxaparin Sodium 40 Mg/0.4 Ml Syringe) 40 mg SUBCUT Q24H [facility] Last Admin: 02/08/23 07:52 Dose: Not Given Hydromorphone HCl (Hydromorphone Hcl 0.5 Mg/0.5 Ml Syringe) 0.5 mg IVPUSH Q4H PRN; Protocol PRN Reason: Pain, Severe (Pain Scale 7-10) Last Admin: 02/08/23 10:27 Dose: 0.5 mg Vancomycin HCl 1,000 mg/ (Sodium Chloride) 270 mls @ 270 mls/hr IV Q12H [facility] Last Infusion: 02/08/23 04:29 Dose: Infused Melatonin (Melatonin 3 Mg Tablet) 6 mg PO BEDTIME PRN PRN Reason: Insomnia Ondansetron HCl (Ondansetron Hcl 4 Mg/2 Ml Vial) 4 mg IVPUSH Q8H PRN PRN Reason: Nausea and Vomiting Last Admin: 02/08/23 06:23 Dose: 4 mg Oxycodone HCl (Oxycodone Hcl Immed Release 5 Mg Tablet) 5 mg PO Q4H PRN PRN Reason: Pain, Moderate(Pain Scale 4-6) Last Admin: 02/07/23 23:39 Dose: 5 mg Pharmacy Consult (Consult Rx Vancomycin Dosing) 1 each MISCELLANE DAILY PRN PRN Reason: Consult order Sodium Chloride (0.9 % Sodium Chloride Flush 3 Ml Syringe) 3 ml IVFLUSH QSHIFT [facility] Last Admin: 02/08/23 07:55 Dose: 3 ml Home Medications Medication Instructions Recorded Confirmed Last Taken Type No Known Home Meds 02/07/23 02/07/23 Unknown History Physical Exam 2 Vital Signs: Vital Signs: Last Vital Signs Temp 98 F 10/26/23 07:01 Pulse 59 02/08/23 07:01 Resp 17 02/08/23 10:27 BP 131/80 02/08/23 07:01 Pulse Ox 98 02/08/23 07:01 O2 Del Method Room Air 02/08/23 07:01 BMI result Body Mass Index 22.5 Const: General: comfortable, no acute distress and alert Nutritional Appearance: thin Orientation/consciousness: patient oriented x3 Resp: Effort & Inspection: normal respiratory effort Skin: Other: I&D site overlying the manubrium open with purulent drainage, packing in place which was removed, area with surrounding erythema and edema, significantly tender, no further fluctuance palpated General skin exam: no jaundice Neuro: General: patient oriented x3 and moves all extremities Results Labs 02/07/23 05:23 02/08/23 04:58 Labs: BMP 02/08/23 04:58 Creatinine 0.83 All other labs normal. Imaging CT scan - chest: report reviewed and image reviewed Assessment and Plan (1) Abscess of skin or subcutaneous tissue: Qualifiers: Site of cutaneous abscess of trunk: chest wall Status: Acute (2) Cellulitis: Qualifiers: Site of cellulitis of trunk: chest wall Status: Acute Plan 58 year old male admitted with abscess and cellulitis of superior midline chest wall, s/p I&D in the ED. The site remains opening and draining appropriately and no additional fluctuance appreciated. No further surgical intervention currently necessary. Dressing changed with fluffs and tape. Would benefit from another day of IV abx, and likely ready for dc to home tomorrow on course of PO abx. Await cultures. Patient comfortable with plan. Will continue to follow. Time Spent With Patient Time: Total time managing care of this patient today ____ minutes. Procedures Date of Service Date of Service: 02/08/23
[2023-02-08 14:31] LABS: Vancomycin Random 9.7 mcg/mL (15-20)
--- NOTE | 2023-02-08 15:07 | HO.PM.IMPN ---
Subjective Subjective Date of Service: 02/08/23 Interval History: seen and examined this morning follow up for abscess pain controlled, denies fever Review of Systems Review of Systems: Yes all other systems are reviewed and are negative Constitutional Constitutional: Denies chills and Denies fever(s) Respiratory Respiratory: Denies cough Gastrointestinal Gastrointestinal: Denies abdominal pain Physical Exam Vital Signs: Vital Signs: Last Vital Signs Temp 98 F 02/08/23 07:01 Pulse 59 02/08/23 07:01 Resp 17 02/08/23 10:27 BP 131/80 02/08/23 07:01 Pulse Ox 98 02/08/23 07:01 O2 Del Method Room Air 02/08/23 07:01 BMI result Body Mass Index 22.5 Const: General: cooperative, comfortable, no acute distress, alert and awake Nutritional Appearance: average body habitus Orientation/consciousness: patient oriented x3 Resp: Effort & Inspection: normal respiratory effort, able to speak in complete sentences, no respiratory distress and no use of accessory muscles Cardio: Rate: regular rate GI: Inspection: No distended Palpation (GI): Soft to palpation Skin: Other: Neuro: General: patient oriented x3, moves all extremities and CN's II-XI intact bilaterally Objective Data Active Medications Acetaminophen (Acetaminophen 325 Mg Tablet) 650 mg PO Q6H PRN PRN Reason: Pain, Mild (Pain Scale 1-3) Last Admin: 02/08/23 12:11 Dose: 650 mg Documented By: EVA Enoxaparin Sodium (Enoxaparin Sodium 40 Mg/0.4 Ml Syringe) 40 mg SUBCUT Q24H [facility] Last Admin: 02/08/23 07:52 Dose: Not Given Documented By: EVA Non-Admin Reason: Patient Refused Hydromorphone HCl (Hydromorphone Hcl 0.5 Mg/0.5 Ml Syringe) 0.5 mg IVPUSH Q4H PRN; Protocol PRN Reason: Pain, Severe (Pain Scale 7-10) Last Admin: 02/08/23 10:27 Dose: 0.5 mg Documented By: EVA Vancomycin HCl 750 mg/ Sodium (Chloride) 265 mls @ 265 mls/hr IV Q8H [facility] Melatonin (Melatonin 3 Mg Tablet) 6 mg PO BEDTIME PRN PRN Reason: Insomnia Ondansetron HCl (Ondansetron Hcl 4 Mg/2 Ml Vial) 4 mg IVPUSH Q8H PRN PRN Reason: Nausea and Vomiting Last Admin: 02/08/23 06:23 Dose: 4 mg Documented By: TARI Oxycodone HCl (Oxycodone Hcl Immed Release 5 Mg Tablet) 5 mg PO Q4H PRN PRN Reason: Pain, Moderate(Pain Scale 4-6) Last Admin: 02/08/23 12:11 Dose: 5 mg Documented By: EVA Pharmacy Consult (Consult Rx Vancomycin Dosing) 1 each MISCELLANE DAILY PRN PRN Reason: Consult order Sodium Chloride (0.9 % Sodium Chloride Flush 3 Ml Syringe) 3 ml IVFLUSH QSHIFT [facility] Last Admin: 02/08/23 07:55 Dose: 3 ml Documented By: EVA Labs 02/07/23 05:23 02/08/23 04:58 Labs: Laboratory Results - last 24 hr 02/08/23 02/08/23 04:58 14:08 Hold Purple Top SEE NOTE Estim Creat Clear Calc 90.8 Estimated GFR > 60 Random Vancomycin 9.7 L Microbiology Microbiology Results: Microbiology 02/07/23 01:11 Gram Stain - Final Chest Routine Culture - Preliminary Staphylococcus aureus Strep agalactiae (Grp B) 02/07/23 01:10 Blood Culture - Preliminary Blood - Venous No growth after 24 hours. 02/07/23 01:10 Blood Culture - Preliminary Blood - Venous No growth after 24 hours. Assessment and Plan (1) Abscess of skin or subcutaneous tissue: Status: Acute Plan This is a 58-year-old male with pertinent history of bipolar disorder who presents to the emergency department for evaluation of skin infection. Purulent cellulitis of chest wall no sepsis CT chest showed soft tissue swelling edema along midline chest wall with foci of soft tissue gas, no appreciable fluid collection or sternal abnormality noted to indicate osteomyelitis s/p I&D in ED - wound culture growing staph aureus and group B strep Blood cultures negative to date Continue IV vancomycin seen by surgery - packing removed, wound draining, no further surgical intervention required Mood disorder does not appear to be on any meds at this tiime. DVT prophylaxis: Angela attending - Dr. Mckeon Patient will need continued inpatient hospitalization for IV antibiotics Time Spent With Patient Time: Total time managing care of this patient today ____ minutes. Quality Stroke Does the patient have a stroke diagnosis?: No VTE Prior VTE?: No VTE Risk Level:: Medical - moderate - high VTE Device Contraindication: Treatment Not Indicated VTE Drug Contraindication: N/A - Med Ordered
--- NOTE | 2023-02-08 15:14 | HE.PHANOTE ---
FARZAD SIMON CHANGED DOSE TO 750MG Q8H, AUC 493, TROUGH 15.3. NEXT LEVEL DUE 02/09 @1300 NIEVES
[2023-02-08] MEDS: vancomycin HCL 750 MG in 0.9 % Sodium Chloride 250 ML 265 MG IV ×2 (15:19→23:26)
[2023-02-08] MEDS: Melatonin 3 MG TABLET 6 MG PO (21:17)
[2023-02-09 01:34] VITALS: RESP 19
[2023-02-09] MEDS: HYDROmorphone HCl 0.5 MG/0.5 ML SYRINGE IVPUSH ×2 (01:34→05:34)
[2023-02-09 04:00] VITALS: BP 124/76; PULSE 55; RESP 16; TEMP 36; O2SAT 98
[2023-02-09 05:34] VITALS: RESP 18
[2023-02-09 06:20] LABS: Creatinine Clr Calc Pharmacy 99.1; Estimated Glomerular Filt Rate > 60
[2023-02-09] MEDS: vancomycin HCL 750 MG in 0.9 % Sodium Chloride 250 ML 265 MG IV (06:31)
[2023-02-09 06:48] VITALS: BP 145/70; PULSE 50; RESP 17; TEMP 36.1; O2SAT 99
--- NOTE | 2023-02-09 08:04 | P.PNGS_ITS ---
Subjective Subjective Date of Service: 02/09/23 Interval history: Patient feels much improved, wants to go home. Reports minimal pain at draining chest wound. Physical Exam 2 Vital Signs: Vital Signs: Last Vital Signs Temp 97 F 02/09/23 06:48 Pulse 50 02/09/23 06:48 Resp 17 02/09/23 06:48 BP 145/70 H 02/09/23 06:48 Pulse Ox 99 02/09/23 06:48 O2 Del Method Room Air 02/09/23 06:48 BMI result Body Mass Index 22.5 Const: General: comfortable Nutritional Appearance: well nourished O rientation/consciousness: patient oriented x3 Neck: Other: Open wound at sternal notch, draining with small area of erythema. No undrained collection appreciated. No necrotic skin. Clean dry dressings applied. GI: Inspection: Yes normal to inspection Skin: Other: As noted in neck above. Neuro: General: patient oriented x3 Objective Data Active Medications Acetaminophen (Acetaminophen 325 Mg Tablet) 650 mg PO Q6H PRN PRN Reason: Pain, Mild (Pain Scale 1-3) Last Admin: 02/08/23 12:11 Dose: 650 mg Documented By: COTYOCASTA Enoxaparin Sodium (Enoxaparin Sodium 40 Mg/0.4 Ml Syringe) 40 mg SUBCUT Q24H [facility] Last Admin: 02/09/23 07:16 Dose: Not Given Documented By: COTYOCASTA Non-Admin Reason: Patient Refused Hydromorphone HCl (Hydromorphone Hcl 0.5 Mg/0.5 Ml Syringe) 0.5 mg IVPUSH Q4H PRN; Protocol PRN Reason: Pain, Severe (Pain Scale 7-10) Last Admin: 02/09/23 05:34 Dose: 0.5 mg Documented By: VIOLETAASY Vancomycin HCl 750 mg/ Sodium (Chloride) 265 mls @ 265 mls/hr IV Q8H [facility] Last Admin: 02/09/23 06:31 Dose: 265 mls/hr Documented By: VIOLETAASY Melatonin (Melatonin 3 Mg Tablet) 6 mg PO BEDTIME PRN PRN Reason: Insomnia Last Admin: 02/08/23 21:17 Dose: 6 mg Documented By: VIOLETAASY Ondansetron HCl (Ondansetron Hcl 4 Mg/2 Ml Vial) 4 mg IVPUSH Q8H PRN PRN Reason: Nausea and Vomiting Last Admin: 02/08/23 06:23 Dose: 4 mg Documented By: TARI Oxycodone HCl (Oxycodone Hcl Immed Release 5 Mg Tablet) 5 mg PO Q4H PRN PRN Reason: Pain, Moderate(Pain Scale 4-6) Last Admin: 02/08/23 12:11 Dose: 5 mg Documented By: EVA Pharmacy Consult (Consult Rx Vancomycin Dosing) 1 each MISCELLANE DAILY PRN PRN Reason: Consult order Sodium Chloride (0.9 % Sodium Chloride Flush 3 Ml Syringe) 3 ml IVFLUSH QSHIFT [facility] Last Admin: 02/09/23 07:16 Dose: Not Given Documented By: EVA Non-Admin Reason: IV Running Labs 02/07/23 05:23 02/09/23 04:59 Labs: Laboratory Results - last 24 hr 02/08/23 02/09/23 14:08 04:59 Estim Creat Clear Calc 99.1 Estimated GFR > 60 Random Vancomycin 9.7 L Microbiology Microbiology Results: Microbiology 02/07/23 01:10 Blood Culture - Preliminary Blood - Venous No growth after 48 hours. 02/07/23 01:10 Blood Culture - Preliminary Blood - Venous No growth after 48 hours. 02/07/23 01:11 Gram Stain - Final Chest Routine Culture - Preliminary Staphylococcus aureus Strep agalactiae (Grp B) Procedures Date of Service Date of Service: 02/09/23 Progress Note: A&P Assessment and plan (1) Abscess of skin or subcutaneous tissue: Status: Acute Plan 58-year-old male patient with a abscess in the anterior chest at the sternal notch which remains open and draining. Recommend warm compresses or soaks in shower 1-2 times daily. Applied dry dressing to wound until healed. He should follow up in the office in 1-2 weeks for wound check. Discharge home on oral antibiotics. Time Spent With Patient Time: Total time managing care of this patient today ____ minutes. Quality Stroke Does the patient have a stroke diagnosis?: No VTE Prior VTE?: No VTE Risk Level:: Medical - moderate - high VTE Device Contraindication: Treatment Not Indicated VTE Drug Contraindication: N/A - Med Ordered
--- NOTE | 2023-02-09 09:54 | P.DS_ITS ---
DS: Providers Provider Date of Service: 02/09/23 Date of admission: 02/07/23 03:02 Date of discharge: 02/09/23 Primary care physician: Gabriela Myrick MD Consults: 02/07/23 11:46 Consult to General Surgery Routine Consulting Provider: Andrew Shore Reason for consultation: ant chest wall abscess Has provider been notified: No Attending physician on discharge: Gurjit Mckeon Discharging clinician: Mahogany Joy DS: Diagnosis Discharge Diagnosis (1) Abscess of skin or subcutaneous tissue: Status: Acute DS: Summary Hospital Course Hospital Course: From H&P on the day of admission This is a 58-year-old male with pertinent history of bipolar disorder who presents to the emergency department for evaluation of skin infection. Patient states whenever he gets anxious, he picks his skin. He states that about 4 days prior to presentation, he pierced his skin over the sternum with a needle. Since then, he has noticed pain, redness and swelling which has gotten progressively worse. Also it has been draining foul-smelling purulent pus. Has had low-grade fever and chills at home. No chest discomfort, palpitations, shortness of breath, abdominal pain, changes in urinary or bowel habits. In the emergency department, imaging with soft tissue swelling along midline chest wall without focal fluid collection Purulent cellulitis of chest wall no sepsis CT chest showed soft tissue swelling edema along midline chest wall with foci of soft tissue gas, no appreciable fluid collection or sternal abnormality noted to indicate osteomyelitis. He underwent I&D of the abscess in ED - wound culture growing staph aureus and group B strep. Blood cultures have remained negative to date. He was treated with IV vancomycin. He was seen by general surgery - packing was removed, wound continues to drain spontaneously and no further surgical intervention was required. He will be discharged home to complete course of antibiotics and is instructed to follow up with general surgery as outpatient. Time Spent with Patient Time attestation: Total time managing care of this patient today ____ minutes. Discharge coordination time: Greater than 30 minutes Quality: Safe Use of Opioids Does Pt have an Active Cancer Diagnosis on the Problem List?: No Quality: Stroke Does the patient have a stroke diagnosis?: No Physical Exam Vital Signs: Vital Signs: Last Vital Signs Temp 97 F 02/09/23 06:48 Pulse 50 02/09/23 06:48 Resp 17 02/09/23 06:48 BP 145/70 H 02/09/23 06:48 Pulse Ox 99 02/09/23 06:48 O2 Del Method Room Air 02/09/23 06:48 BMI result Body Mass Index 22.5 Const: General: cooperative, comfortable, no acute distress, alert and awake Nutritional Appearance: average body habitus Orientation/consciousness: pa tient oriented x3 Resp: Effort & Inspection: normal respiratory effort, able to speak in complete sentences, no respiratory distress and no use of accessory muscles Cardio: Rate: regular rate GI: Inspection: No distended Palpation (GI): Soft to palpation Skin: Other: open wound sternal notch with small amount of purulent drainage. no fluctuance Neuro: General: patient oriented x3, moves all extremities and CN's II-XI intact bilaterally DS: Data Data Completed and Pending Labs on day of discharge: Laboratory Results - last 24 hr 02/08/23 02/09/23 14:08 04:59 Creatinine 0.76 Estim Creat Clear Calc 99.1 Estimated GFR > 60 Random Vancomycin 9.7 L Preliminary micro results at discharge 02/07/23 01:10 Blood Culture - Preliminary Blood - Venous No growth after 48 hours. 02/07/23 01:10 Blood Culture - Preliminary Blood - Venous No growth after 48 hours. Discharge Plan Discharge Anticipated Discharge Date/Time: 02/09/23 09:37 Patient Disposition: Home, Self-Care Discharge Diagnosis: cellulitis and abscess of chest wall Referrals: Dimitry Ureña MD [Physician] - 1 Week Gabriela Myrick MD [Primary Care Provider] - 1 Week Discharge Medications: New doxycycline hyclate 100 mg tablet 100 mg PO BID 7 Days Qty: 14 0RF cefuroxime axetil 500 mg tablet 500 mg PO BID 7 Days Qty: 14 0RF Discharge Orders: Discharge Order (Routine); Ordered 02/09/23 Ordered By: Mahogany Joy Activity on Discharge: As tolerated Stand Alone Forms: Patient Portal Discharge page Care Plan Goals: see below Health Concerns: cellulitis with abscess Plan of Treatment: take antibiotics as prescribed until gone. use warm compresses or soaks in shower 1-2 times daily apply dry dressing to wound until healed call to schedule a follow up appointment with Dr Ureña (general surgery) avoid doing your own body piercing as it can lead to infection to use unsterilized equipment/needles Assessment: see discharge summary
--- NOTE | 2023-02-09 10:32 | MHC.CM.PN ---
Pt has been medically cleared for DC. He has someone coming to pick him up. Plan is home, Self care.
== END 2023-02-09 11:30 | disposition home or self-care (01) | DRG 603 ==
LOC: HO.ED 02:24 → HO.EDOVER 03:18 → HO.S3 13:41
PROVIDERS: Admitting Provider Student in an Organized Health Care Education/Training Program; Emergency Provider Internal Medicine; PCP Family Medicine; Visit Provider Physician Assistant Medical
DX: L02.213 Cutaneous abscess of chest wall (principal); L03.313 Cellulitis of chest wall; B95.1 Streptococcus, group B, as the cause of diseases classified elsewhere; B95.61 Methicillin susceptible Staphylococcus aureus infection as the cause of diseases classified elsewhere; F31.9 Bipolar disorder, unspecified; Z88.0 Allergy status to penicillin; Z91.52 Personal history of nonsuicidal self-harm
CPT/HCPCS: 36415; 71260; 80048; 80202; 82565; 83605; 85025; 85652; 87040; 87070; 87077; 87147; 87186; 87205; 99284; J1170; J1200; J1650; J2405; J2543; J3370; Q9967

== ENCOUNTER → 2023-02-07 03:02 | Outpatient (BNV) | payer OTHER, SELFPAY | PROVIDERS: Admitting Provider Student in an Organized Health Care Education/Training Program; Emergency Provider Internal Medicine; PCP Family Medicine; Visit Provider Student in an Organized Health Care Education/Training Program | DX: L02.91 Cutaneous abscess, unspecified (principal) | CPT/HCPCS: 99222; 99232; 99239; 99499 ==

== ENCOUNTER → 2023-02-07 03:02 | Outpatient (BNV) | payer OTHER, SELFPAY | PROVIDERS: Admitting Provider Student in an Organized Health Care Education/Training Program; Emergency Provider Internal Medicine; PCP Family Medicine; Visit Provider Physician Assistant Surgical | DX: L02.91 Cutaneous abscess, unspecified (principal) | CPT/HCPCS: 99222; 99232 ==

== ENCOUNTER 2023-03-12 12:14 | Emergency (ER) | payer OTHER, SELFPAY ==
[2023-03-12 12:18] VITALS: BP 131/69; PULSE 71; O2SAT 99
[2023-03-12 12:51] VITALS: BP 131/73; PULSE 71; RESP 14; TEMP 37.1; O2SAT 99; BMI 25.7
--- NOTE | 2023-03-12 12:54 | ED_ITS ---
HPI - Skin/Abscess/Foreign Bdy General Chief complaint: Wound/Laceration Stated complaint: L ARMPIT/TESTICLE PAIN/SWELLING PER EMS Time Seen by Provider: 03/12/23 14:19 Source: patient and EMS Mode of arrival: EMS Limitations: no limitations History of Present Illness HPI narrative: This is a 58-year-old male history of bipolar disorder presenting with abscess to the left armpit in groin worsening over the past few days. Patient reports when he 1st noticed these he noticed that they were rapidly growing, he tried to cut them himself, unsuccessful. Reports that they are painful and tender to the touch. Reports he gets these frequently. Denies fevers, chills, numbness, tingling, testicular pain, nausea, vomiting, abdominal pain, chest pain and shortness of breath. Sexually active hasnt been STD tested Related Data Previous Rx's Medication Instructions Recorded cefuroxime axetil 500 mg tablet 500 mg PO BID 7 days #14 tabs 02/09/23 doxycycline hyclate 100 mg tablet 100 mg PO BID 7 days #14 tabs 02/09/23 cephalexin 500 mg tablet 500 mg PO Q6H 10 days #40 tabs 03/12/23 doxycycline hyclate 100 mg capsule 100 mg PO BID 10 days #20 caps 03/12/23 doxycycline hyclate 100 mg capsule 100 mg PO BID 21 days #42 caps 03/12/23 metronidazole 500 mg tablet 500 mg PO BID 7 days #14 tabs 03/12/23 Allergies Allergy/AdvReac Type Severity Reaction Status Date / Time morphine [Morphine] Allergy Intermediate RASH Verified 06/07/20 08:41 penicillin G [Penicillin G] Allergy Intermediate RASH Verified 06/07/20 08:41 Review of Systems 2 Review of Systems: Constitutional : No Fever, No Chills, Cardiovascular : No Chest Pain, No SOB Respiratory : No Dyspnea Gastrointestinal : No abdominal pain Musculoskeletal : No Joint Swelling Skin : No rash, positive bump Neuro : No Weakness, No Numbness Psych : No SI/HI Yes all other systems are reviewed and are negative PMFSH Past Medical History Attestation statement: The following information was validated with the patient. Source: old records reviewed and nursing notes reviewed Medical History Pain History of tibial fracture History of adenomatous polyp of colon Colon cancer screening Bipolar disorder Mood disorder Asthma Erectile dysfunction Hypertension Anxiety Surgical History Hx of left inguinal hernia repair S/P trigger finger release (Unknown) Social History Household Members: None Housing: House Do you presently have visiting nurse or other home services: No Alcohol intake: current Alcohol intake frequency: a few times a month Alcohol type: beer Patient Tobacco Use Status: Never used Tobacco Substance Use Type: Crack/Cocaine Advance Directives: No Advance Directives Information Provided: Yes service: No Current occupational status: retired Physical Exam 2 Vital Signs: Vital Signs: Last Vital Signs Temp 98.8 F 03/12/23 12:51 Pulse 71 03/12/23 12:51 Resp 14 03/12/23 12:51 BP 131/73 03/12/23 12:51 Pulse Ox 99 03/12/23 12:51 O2 Del Method Room Air 03/12/23 12:51 BMI result Body Mass Index 25.7 Vital signs stable Appearance: Alert.? Oriented X3.? No acute distress.? Head: Normocephalic, atraumatic, no step-offs or deformities Eyes: Pupils equal, round and reactive to light.? ENT: Pharynx normal.? Neck: Normal inspection.? Neck supple.? CVS: Normal heart rate and rhythm.? Pulses normal.? Respiratory: No respiratory distress.? Breath sounds normal.? Abdomen: Soft and nontender.? Skin: Skin warm and dry.? Normal skin color.? Normal skin turgor.? + L axilla w/ indurated area 4 cm x 5 cm w/ overlying errythema slightly mobile and tender. and another large indurated area around 4 cm x 4 cm indurated area w/ overlying errythem to l groin. Extremities: No lower extremity edema.? No calf ttp. 5/5 strength to bilateral upper and lower extremities Neuro: Oriented X 3.? No motor deficit.? No sensory deficit. CN 2-12 intact Course Course Course Narrative: This is a rapid medical exam. Deferred additional HPI, ROS, PE to primary provider. 58 yo male with no known medical history here with complaints of ?abscess to left axilla and left testicle. Unable to visualize in triage. Reports left testicle abscess is draining. VSS Reevaluation(s) Reevaluation #1: Will obtain testing for HIV, hepatitis, syphilis, gonorrhea and chlamydia. Will treat with 21 days doxycycline to cover LGV. Educated patient on diagnosis and treatment plan, answered all question, patient verbalizes understanding. At this time patient will be discharged home, advised to return with new or worsening symptoms. Educated on worrisome signs and symptoms and when to return. At this time I feel comfortable discharge home. Time: 14:49 Reevaluation #2: Discuss this case with infectious disease who tells me LGV not most likely but still concerning to air on side of caution will treat w/ doxy 21 days. Time: 15:13 Medications Administered Discontinued Medications Generic Name Dose Route Start Last Admin Trade Name Jerson PRN Reason Stop Dose Admin Ceftriaxone Sodium 500 mg/ 0 mg 03/12/23 14:50 03/12/23 15:03 Lidocaine HCl 1 ml IM 03/12/23 14:51 1 kit ONCE ONE Administration Doxycycline Monohydrate 100 mg 03/12/23 14:47 03/12/23 15:03 Doxycycline Monohydrate 100 Mg Capsule PO 03/12/23 14:48 100 mg ONCE ONE Administration Metronidazole 500 mg 03/12/23 14:47 03/12/23 15:03 Metronidazole 500 Mg Tablet PO 03/12/23 14:48 500 mg ONCE ONE Administration Medical Decision Making Medical Decision Making [facility] Narrative: 1420 58-year-old male presents with abscess to left armpit and groin past few days tried to Flaquito them without success Physical exam L axilla w/ indurated area 4 cm x 5 cm w/ overlying errythema slightly mobile and tender. Concerning for LGV vs syphillis vs std vs abscess vs massive adenopaty vs malignancy vs cyst. Unlikely forniers, necrotizing infection, torsion US done all inflamatory no fluid collection in axilla or groin. Plan- std test. This case was discussed with my attending wound agrees that this is most likely LGV. Differential Diagnosis Differential Diagnoses: The differential diagnosis associated with the presentation includes Concerning for LGV vs syphillis vs std vs abscess vs massive adenopaty vs malignancy vs cyst. Unlikely forniers, necrotizing infection, torsion Admission/Observation Consideration of admission/observation: Escalation of care including admission/observation considered unlikely Lab Data [facility] Lab Attestation statement: I reviewed the patient's lab results. Prescription Management I considered prescription management with: Antibiotic Critical Care Time Critical Care Time Critical Care Time: Yes Total Critical Care Time: 45 Attestation: I attest to this time spent taking care of the patient, obtaining history, physical, reviewing labs, imaging, speaking to my attending, speaking to specialist. Discharge Plan Discharge Clinical Impression: Mass in armpit, Left groin mass Patient Disposition: Home, Self-Care Additional Instructions: LTake your medications as prescribed. If you were prescribed antibiotics today, it is important that you take your medication to their entirety, do not skip any doses, do not finish them early. Follow-up with your primary care provider this week. Return to the emergency department with new or worsening symptoms. Such as fevers, chills, chest pain, shortness of breath, nausea, vomiting, dizziness, headache, vision changes, lethargy In case of emergency call 911 You should be re-evaluated in 7-10 days to see if there is improvement/wound check. Prescriptions: New cephalexin 500 mg tablet 500 mg PO Q6H 10 Days Qty: 40 0RF doxycycline hyclate 100 mg capsule 100 mg PO BID 10 Days Qty: 20 0RF doxycycline hyclate 100 mg capsule 100 mg PO BID 21 Days Qty: 42 0RF metronidazole 500 mg tablet 500 mg PO BID 7 Days Qty: 14 0RF No Action doxycycline hyclate 100 mg tablet 100 mg PO BID 7 Days Qty: 14 0RF cefuroxime axetil 500 mg tablet 500 mg PO BID 7 Days Qty: 14 0RF Referrals: [facility] [place] General Surgeons [Provider Group] - 1 week Gabriela Myrick MD [Primary Care Provider] - 2 days Stand Alone Forms: Work/School Release
[2023-03-12] MEDS: Doxycycline Monohydrate 100 MG CAPSULE PO (15:03)
[2023-03-12] MEDS: cefTRIAXone sodium 500 MG, Lidocaine HCl 1 % MPF 1 ML IM (15:03)
[2023-03-12] MEDS: metroNIDAZOLE 500 MG TABLET PO (15:03)
[2023-03-13 02:02] LABS: CT PCR NOT DETECTED (Not Detect.); NG PCR NOT DETECTED (Not Detect.)
[2023-03-13 07:45] LABS: Syphilis Screen Nonreactive (Nonreactive)
[2023-03-13 08:06] LABS: HBS Num1 103.07 mIU/mL (0-7.99); HBc Num1 0.17 S/CO (0.00-0.79); HBsAGNum1 0.35 S/CO (0.00-0.99); HIV AB/AG Nonreactive (Nonreactive); HIV Num 1 0.11 S/CO (0.00-0.99); Hepatitis A Antibody IgM 0.13 Index (0-0.79); Hepatitis B Core Antibody Nonreactive (Nonreactive); Hepatitis B Surface Antigen Negative (Negative); ~HepC Num1 0.14 S/CO (0.00-0.79); ~Hepatitis A Antibody IgM Nonreactive (Nonreactive); ~Hepatitis B Surface Antibody REACTIVE (Nonreactive); ~Hepatitis C Antibody Nonreactive (Nonreactive)
== END 2023-03-12 15:55 | disposition home or self-care (01) ==
PROVIDERS: Physician Assistant; Emergency Provider Emergency Medicine; PCP Family Medicine
DX: R19.09 Other intra-abdominal and pelvic swelling, mass and lump (principal); R22.9 Localized swelling, mass and lump, unspecified; N50.812 Left testicular pain; I10 Essential (primary) hypertension; M79.622 Pain in left upper arm
CPT/HCPCS: 0353U; 36415; 86704; 86706; 86709; 86780; 86803; 87340; 87389; 96372; 99282; 99284; J0696

== ENCOUNTER 2023-10-01 09:06 | Outpatient (REF) | payer OTHER, SELFPAY ==
--- NOTE | ~2023-10-01 | XR_ITS ---
EXAMINATION: XR KNEE, RIGHT CLINICAL INFORMATION: Right knee pain. Chronic instability. COMPARISON: 03/14/2021 TECHNIQUE: Four views of the right knee. FINDINGS: No acute findings. No fracture, subluxation or joint effusion. Tricompartmental osteophyte formation. Chronic moderate loss of medial tibiofemoral joint space. The joint spaces loss is slightly worse compared to 03/14/2021. XR/XR knee RT 3V IMPRESSION: Chronic tricompartmental osteoarthritis of the right knee, worst at the medial tibiofemoral compartment (and slightly worse compared to 03/14/2021).
== END 2023-10-01 09:07 | disposition home or self-care (01) ==
LOC: HO.HHCX 09:06
PROVIDERS: Visit Provider Family Medicine
DX: M25.561 Pain in right knee (principal)
CPT/HCPCS: 73562

== ENCOUNTER 2023-10-15 07:37 | Outpatient (REF) | payer OTHER, SELFPAY | END 2023-10-15 07:38 | disposition home or self-care (01) | LOC: HO.HOSX 07:37 | PROVIDERS: Visit Provider Orthopaedic Surgery | DX: Z13.89 Encounter for screening for other disorder (principal) ==

== ENCOUNTER 2023-10-19 07:57 | Outpatient (REF) | payer OTHER, SELFPAY | END 2023-10-19 07:58 | disposition home or self-care (01) | LOC: HO.HOSX 07:57 | PROVIDERS: Visit Provider Orthopaedic Surgery | DX: Z13.89 Encounter for screening for other disorder (principal) ==

== ENCOUNTER 2024-03-24 11:41 | Emergency (ER) | payer OTHER, SELFPAY ==
[2024-03-24 11:52] VITALS: BP 147/87; PULSE 89; RESP 20; TEMP 37.1; O2SAT 97; BMI 24.4
--- NOTE | 2024-03-24 11:55 | ED.GENADULT ---
HPI - General Adult General Chief complaint: Skin/Abscess/Foreign Body Stated complaint: cyst in both underarms History of Present Illness HPI narrative: patient left before completion of treatment by ED provider. Related Data Previous Rx's ?Medication ?Instructions ?Recorded cefuroxime axetil 500 mg tablet 500 mg PO BID 7 days #14 tabs 02/09/23 doxycycline hyclate 100 mg tablet 100 mg PO BID 7 days #14 tabs 02/09/23 cephalexin 500 mg tablet 500 mg PO Q6H 10 days #40 tabs 03/12/23 doxycycline hyclate 100 mg capsule 100 mg PO BID 10 days #20 caps 03/12/23 doxycycline hyclate 100 mg capsule 100 mg PO BID 21 days #42 caps 03/12/23 metronidazole 500 mg tablet 500 mg PO BID 7 days #14 tabs 03/12/23 Allergies Allergy/AdvReac Type Severity Reaction Status Date / Time morphine [Morphine] Allergy Intermediate RASH Verified 03/24/24 11:55 penicillin G [Penicillin G] Allergy Intermediate RASH Verified 03/24/24 11:55 PMFSH Past Medical History Medical History Pain History of tibial fracture History of adenomatous polyp of colon Colon cancer screening Bipolar disorder Mood disorder Asthma Erectile dysfunction Hypertension Anxiety Surgical History Hx of left inguinal hernia repair S/P trigger finger release (Unknown) Social History Social History Household Members: None Housing: House Do you presently have visiting nurse or other home services: No Alcohol intake: current Alcohol intake frequency: a few times a month Alcohol type: beer Patient Tobacco Use Status: Never used Tobacco Substance Use Type: Crack/Cocaine Advance Directives: No Do you have a plan to hurt others: No Plan service: No Current occupational status: retired Physical Exam ED Vital Signs: Vital Signs - 24 hr 03/24/24 11:52 Temperature 98.7 F Pulse Rate 89 Respiratory Rate 20 Blood Pressure 147/87 H Pulse Oximetry 97 Oxygen Delivery Method Room Air BMI result Body Mass Index 24.4 Course Course Course Narrative: RME: 59 yold male presents to the ED for bilateral axillary abscesses that is painful. Physical exam positive for bilatreal hidraenditits supprutiva abscess that are tenderness. Patient also states right groin abscess. Discharge Plan Discharge Clinical Impression: Abscess of skin or subcutaneous tissue Patient Disposition: Left W/O Completing Treatment Prescriptions: No Action doxycycline hyclate 100 mg tablet 100 mg PO BID 7 Days Qty: 14 0RF cefuroxime axetil 500 mg tablet 500 mg PO BID 7 Days Qty: 14 0RF cephalexin 500 mg tablet 500 mg PO Q6H 10 Days Qty: 40 0RF doxycycline hyclate 100 mg capsule 100 mg PO BID 10 Days Qty: 20 0RF doxycycline hyclate 100 mg capsule 100 mg PO BID 21 Days Qty: 42 0RF metronidazole 500 mg tablet 500 mg PO BID 7 Days Qty: 14 0RF Discharge Date/Time: 03/24/24 13:29
== END 2024-03-24 13:29 | disposition left against medical advice (07) ==
PROVIDERS: Emergency Provider Emergency Medicine; PCP Family Medicine
DX: L02.411 Cutaneous abscess of right axilla (principal); L02.412 Cutaneous abscess of left axilla
CPT/HCPCS: 99281

== ENCOUNTER 2024-04-01 04:18 | Emergency (ER) | payer MEDICARE, SELFPAY ==
[2024-04-01 04:22] VITALS: BP 158/96; PULSE 62; O2SAT 98
[2024-04-01 04:31] VITALS: BP 161/78; PULSE 72; RESP 20; TEMP 36.6; O2SAT 98; BMI 26.6
[2024-04-01 04:52] LABS: Basophils Percent Auto 0.2 % (0-2); Eosinophils Absolute Auto 0.3 X10*3/uL (0.0-0.4); Eosinophils Percent Auto 3.2 % (0-4); Hematocrit 39.4 % (42.0-52.0); Hemoglobin 13.9 g/dl (14.0-18.0); Imm Gran Abs Auto 0.03 X10*3/uL (0.00-0.03); Imm Gran Pct Auto 0.4 % (0.0-0.4); Lymphocytes Absolute Auto 2.9 X10*3/uL (1.2-4.9); MANUAL DIFF FLAG NO; Mean Corpuscular HGB Conc 35.3 g/dl (31.0-36.0); Mean Corpuscular Hemoglobin 29.8 pg (27.0-33.0); Mean Corpuscular Volume 84.5 fL (80.0-98.0); Mean Platelet Volume 8.8 fL (9.4-12.4); Monocytes Absolute Auto 0.8 X10*3/uL (0.1-1.2); Monocytes Percent Auto 9.4 % (2-11); Neutrophils Absolute Auto 4.1 x10*3/uL (2.0-8.3); Neutrophils Percent Auto 50.8 % (45-73); Platelet Count 386 X10*3/uL (160-400); Red Blood Count 4.66 X10*6/uL (4.60-5.80); Red Cell Distribution Width 12.6 % (11.0-16.0)
[2024-04-01 05:11] LABS: Alanine Aminotransferase 45 U/L (0-40); Albumin Level 3.8 g/dL (3.5-5.0); Alkaline Phosphatase 96 U/L (39-117); Anion Gap 12 (12-20); Aspartate Amino Transferase 25 U/L (5-37); Bilirubin Total 0.2 mg/dL (0.0-1.0); Blood Urea Nitrogen 17 mg/dL (9-16); Carbon Dioxide 23 mmol/L (22-29); Chloride 111 mmol/L (96-108); Creatinine Clr Calc Pharmacy 98.7; Estimated Glomerular Filt Rate > 60; Glucose Random 107 mg/dL (60-115); Potassium 3.4 mmol/L (3.3-5.1); Sodium 143 mmol/L (135-145); Total Protein 7.2 g/dL (6.5-8.0)
--- NOTE | 2024-04-01 05:46 | ED_ITS ---
HPI - General Adult General Chief complaint: Skin/Abscess/Foreign Body Stated complaint: cyst bilat armpits Time Seen by Provider: 04/01/24 05:46 History of Present Illness ED Provider: Casey CORONA narrative: The patient is a 59-year-old male who presents for evaluation of a painful swelling in his right axilla. The patient has a history of prior abscesses. He was hospitalized for a skin abscess 1 year ago. At that time he had a culture from pus from an abscess on the right chest wall that grew MRSA and group B strep. The patient says he has been developing abscesses in both of his axillae over the past couple of weeks. The patient came to the emergency room last week because of this same problem. The emergency room was very busy that day and he ultimately left without being seen. He returns today because of ongoing pain, particularly in the right axilla. He feels that the swelling in his left axilla has drained spontaneously and is no longer bothering him. He has had no fever, sweats, chills. Related Data Previous Rx's ?Medication ?Instructions ?Recorded cefuroxime axetil 500 mg tablet 500 mg PO BID 7 days #14 tabs 02/09/23 doxycycline hyclate 100 mg tablet 100 mg PO BID 7 days #14 tabs 02/09/23 cephalexin 500 mg tablet 500 mg PO Q6H 10 days #40 tabs 03/12/23 doxycycline hyclate 100 mg capsule 100 mg PO BID 10 days #20 caps 03/12/23 doxycycline hyclate 100 mg capsule 100 mg PO BID 21 days #42 caps 03/12/23 metronidazole 500 mg tablet 500 mg PO BID 7 days #14 tabs 03/12/23 cefuroxime axetil 500 mg tablet 500 mg PO BID #14 tabs 04/01/24 ibuprofen 400 mg tablet 400 mg PO Q6H PRN pain #14 tabs 04/01/24 sulfamethoxazole 800 1 tab PO BID #14 tabs 04/01/24 mg-trimethoprim 160 mg tablet (Bactrim DS) Allergies Allergy/AdvReac Type Severity Reaction Status Date / Time morphine [Morphine] Allergy Intermediate RASH Verified 04/01/24 04:34 penicillin G [Penicillin G] Allergy Intermediate RASH Verified 04/01/24 04:34 shrimp Allergy Anaphylaxis Verified 04/01/24 04:34 Review of Systems 2 Review of Systems: Yes all other systems are reviewed and are negative [facility] Past Medical History Medical History Pain History of tibial fracture History of adenomatous polyp of colon Colon cancer screening Bipolar disorder Mood disorder Asthma Erectile dysfunction Hypertension Anxiety Surgical History Hx of left inguinal hernia repair S/P trigger finger release (Unknown) Social History Social History Household Members: None Housing: House Do you presently have visiting nurse or other home services: No Alcohol intake: current Alcohol intake frequency: a few times a month Alcohol type: beer Patient Tobacco Use Status: Never used Tobacco Substance Use Type: Crack/Cocaine Advance Directives: No Advance Directives Information Provided: Yes service: No Current occupational status: retired Physical Exam ED Vital Signs: Vital Signs - 24 hr 04/01/24 04:31 04/01/24 06:38 04/01/24 07:06 Temperature 97.9 F 98.4 F 98.4 F Pulse Rate 72 55 55 Respiratory Rate 20 16 16 Blood Pressure 161/78 H 158/84 H 158/84 H Pulse Oximetry 98 98 98 Oxygen Delivery Method Room Air Room Air Room Air BMI result Body Mass Index 26.6 Const Other: The patient is a 59-year-old man who was awake and alert. He is pleasant and cooperative. He seems somewhat uncomfortable. HENMT Other: Face is symmetrical. Mucous membranes moist Eyes General: appearance normal, both eyes and all related structures Neck Neck: Yes full ROM Resp Effort & Inspection: normal respiratory effort Auscultation: clear to auscultation bilaterally Cardio Rate: regular rate Rhythm: regular rhythm Heart sounds: S1 normal heart sound present and S2 normal heart sound present Skin Other: The patient has a large area of swelling in the lower right axilla. There are a couple of smaller areas of swelling higher in the axilla. The large swelling is fluctuant. Medications Administered Discontinued Medications Generic Name Dose Route Start Last Admin Trade Name Freq PRN Reason Stop Dose Admin Acetaminophen 650 mg 04/01/24 05:37 04/01/24 05:54 Acetaminophen 325 Mg Tablet PO 04/01/24 05:38 650 mg ONCE ONE Administration Cefuroxime Axetil 500 mg 04/01/24 06:14 04/01/24 06:44 Cefuroxime Axetil 500 Mg Tablet PO 04/01/24 06:15 500 mg ONCE ONE Administration Ibuprofen 600 mg 04/01/24 06:13 04/01/24 06:44 Ibuprofen 600 Mg Tablet PO 04/01/24 06:14 600 mg ONCE ONE Administration Lidocaine HCl 10 ml 04/01/24 05:55 04/01/24 06:06 Lidocaine Hcl 1 % Mpf 5 Ml Vial INFILTRATI 04/01/24 05:56 10 ml ONCE ONE Administration Trimethoprim/Sulfamethoxazole 1 tab 04/01/24 06:14 04/01/24 06:44 Sulfamethox/Trimeth 800/160 Tablet PO 04/01/24 06:15 1 tab ONCE ONE Administration Procedures Abscess I/D Site: upper extremity (Right axilla) Side (if applicable): right Local Anesthetic: lidocaine 1% Amount of anesthesia used (mL): 8 Technique: incised with blade Sent for culture/gram staining?: No Irrigation: No Packing used?: iodoform Complications: other (An incision through the area fluctuance where I had 1st anesthetized the skin released a lot of blood and pus. An iodoform gauze packing was placed.) Medical Decision Making Medical Decision Making MDM Narrative: The patient is a 59-year-old male who presents because of painful swelling in the right axilla suggestive of an abscess. A bedside ultrasound showed a fluid feel area in the area of the patient's discomfort. This seems to be an abscess. With the patient's permission and eager consent the was prepped with Betadine. The larger area of swelling was anesthetized with 1% plain lidocaine with a total of about 4 or 5 mL of lidocaine. After anesthesia was achieved I made an incision with a 11. Blade which released a lot of pus and also some blood. The patient seemed to have almost instant relief of discomfort. He looked much happier and was moving his right arm much more easily after an incision through the abscess. The patient has previously grown MRSA and strep agalactiae from a previous abscess. He will be placed on Bactrim and cefuroxime. He is referred to the surgery office. Lab Data 04/01/24 04:47 04/01/24 04:47 Labs: Lab Results 12/17/24 Range/Units 04:47 WBC 8.0 (4.8-10.8) X10*3/uL RBC 4.66 (4.60-5.80) X10*6/uL Hgb 13.9 L (14.0-18.0) g/dl Hct 39.4 L (42.0-52.0) % MCV 84.5 (80.0-98.0) fL MCH 29.8 (27.0-33.0) pg MCHC 35.3 (31.0-36.0) g/dl RDW 12.6 (11.0-16.0) % Plt Count 386 D (160-400) X10*3/uL MPV 8.8 L (9.4-12.4) fL Immature Gran % (Auto) 0.4 (0.0-0.4) % Neut % (Auto) 50.8 (45-73) % Lymph % (Auto) 36.0 (20-40) % Callahan % (Auto) 9.4 (2-11) % Eos % (Auto) 3.2 (0-4) % Baso % (Auto) 0.2 (0-2) % Lymph # (Auto) 2.9 (1.2-4.9) X10*3/uL Callahan # (Auto) 0.8 (0.1-1.2) X10*3/uL Eos # (Auto) 0.3 (0.0-0.4) X10*3/uL Baso # (Auto) 0.0 (0.0-0.2) X10*3/uL Abs Immat Gran (auto) 0.03 (0.00-0.03) X10*3/uL Absolute Neuts (auto) 4.1 (2.0-8.3) x10*3/uL Absolute Nucleated RBC 0.000 (0.0-0.012) X10*3/uL Nucleated RBC % (auto) 0.0 (0.0-0.2) /100WBC Sodium 143 (135-145) mmol/L Potassium 3.4 (3.3-5.1) mmol/L Chloride 111 H (96-108) mmol/L Carbon Dioxide 23 (22-29) mmol/L Anion Gap 12 (12-20) BUN 17 H (9-16) mg/dL Creatinine 0.77 (0.5-1.4) mg/dL Estim Creat Clear Calc 98.7 Estimated GFR > 60 Random Glucose 107 (60-115) mg/dL Calcium 9.0 (8.4-10.2) mg/dL Total Bilirubin 0.2 (0.0-1.0) mg/dL AST 25 (5-37) U/L ALT 45 H (0-40) U/L Alkaline Phosphatase 96 (39-117) U/L Total Protein 7.2 (6.5-8.0) g/dL Albumin 3.8 (3.5-5.0) g/dL Discharge Plan Discharge Clinical Impression: Abscess of right axilla Patient Disposition: Home, Self-Care Instructions: Abscess Incision and Drainage (DC) Additional Instructions: You had a fairly large abscess in your right armpit which was incised with a scalpel to allow drainage of pus. You have some smaller areas in the abscess which were not big enough to drain. Please take the antibiotics prescribed. Take these 2 times a day. You may use [id number] acetaminophen as needed for pain. I have also sent a prescription for ibuprofen that you may use for pain. There is a packing in the abscess in your right armpit. The packing is intended to help the abscess strain. The packing may fall out. I recommend that you contact the General surgery office (contact information provided). Please call the office today for a follow up appointment in the next few days so that a surgeon can evaluate how you are doing and make any additional recommendations as needed. Also plan on following up with your regular doctor. Return to the emergency room if significantly worse. Prescriptions: New sulfamethoxazole-trimethoprim [Bactrim DS] 800-160 mg tablet 1 tab PO BID Qty: 14 0RF cefuroxime axetil 500 mg tablet 500 mg PO BID Qty: 14 0RF ibuprofen 400 mg tablet 400 mg PO Q6H PRN (Reason: pain) Qty: 14 0RF No Action doxycycline hyclate 100 mg tablet 100 mg PO BID 7 Days Qty: 14 0RF cefuroxime axetil 500 mg tablet 500 mg PO BID 7 Days Qty: 14 0RF cephalexin 500 mg tablet 500 mg PO Q6H 10 Days Qty: 40 0RF doxycycline hyclate 100 mg capsule 100 mg PO BID 10 Days Qty: 20 0RF doxycycline hyclate 100 mg capsule 100 mg PO BID 21 Days Qty: 42 0RF metronidazole 500 mg tablet 500 mg PO BID 7 Days Qty: 14 0RF Referrals: [facility] [place] [facility] Surgeons [Provider Group] (axillary abscesses) [facility] [Provider Group] (Axillary abscess) Interventions: ED Discharge Assessment Last Done: 04/01/24 07:06 Discharge Date/Time: 04/01/24 07:07 Print Language: Colombian
[2024-04-01] MEDS: Acetaminophen 325 MG TABLET 650 MG PO (05:54)
[2024-04-01] MEDS: Lidocaine HCl 1 % MPF 5 ML VIAL 10 ML INFILTRATI (06:06)
[2024-04-01 06:38] VITALS: BP 158/84; PULSE 55; RESP 16; TEMP 36.9; O2SAT 98
[2024-04-01] MEDS: cefuroxime axetiL 500 MG TABLET PO (06:44)
[2024-04-01] MEDS: Ibuprofen 600 MG TABLET PO (06:44)
[2024-04-01] MEDS: Sulfamethox/Trimeth 800/160 TABLET 1 TAB PO (06:44)
[2024-04-01 07:06] VITALS: BP 158/84; PULSE 55; RESP 16; TEMP 36.9; O2SAT 98
== END 2024-04-01 07:07 | disposition home or self-care (01) ==
PROVIDERS: Emergency Provider Emergency Medicine
DX: L02.411 Cutaneous abscess of right axilla (principal); Z79.899 Other long term (current) drug therapy
CPT/HCPCS: 10060; 36415; 80053; 85025; 99284; J2003

== ENCOUNTER 2024-06-12 11:32 | Outpatient (REF) | payer MEDICARE, SELFPAY ==
--- NOTE | ~2024-06-12 | XR_ITS ---
EXAMINATION: XR HIP, LEFT CLINICAL INFORMATION: left hip pain COMPARISON: None available. TECHNIQUE: Two views of the left hip. FINDINGS: No fracture, dislocation, or suspicious bone lesion. Normal alignment. Moderate osteoarthrosis of the left hip joint with superior joint space narrowing, mild subchondral sclerosis, and marginal spurs of the acetabulum. There are subcapital femoral spurs. The femoral head has normal contour without evidence of AVN. Normal acetabular coverage evident. No soft tissue abnormalities. XR/XR hip LT min 2V IMPRESSION: Moderate osteoarthrosis of the left hip joint. No acute findings seen. Electronically signed by: Bhupendra Aguirre MD 06/12/2024 12:02 PM BIANCA
--- OUTSIDE RECORDS SUMMARY | 2024-06-12 14:01 | XMS_ITS | Encounter Summary ---
Author Organization [employer] Address [address] [place] [address] Care Team Providers Care Wellness Nurse Name Role Phone Gabriela Myrick MD Primary Care Provider [phone] Reason for Visit * Reason Onset Date Comments Chart Prep 06/09/2024 Encounter Details Date Type Department Care Team ([facility] st Contact Info) Description 06/09/2024 Telephone [facility] [address] [place] [address] Gabriela Myrick MD [address] [place] [address] Chart Prep Social History Tobacco Use Types Packs/Day Years Used Date Smoking Tobacco: Never Smokeless Tobacco: Never Alcohol Use Standard Drinks/Week Comments Not Currently 0 (1 standard drink = 0.6 oz pur e alcohol) Housing Stability Answer Date Recorded What is your housing situation today? I have krzysztof flood 05/17/[address] you li ve. Do you have problems with any of the following? None of the above 05/17/2023 Food Insecurity Answer Date Recorded Within the past 12 months, y ou worried that your food would run out before you got money to buy more: Often true 05/17/2023 Within the past 12 months,th e food you bought just didn't last and you didn't have enough money to get more: Often true 04/2023 Transportation Answer Date Recorded In the past 12 months, has l ack of transportation kept you from medical appts, meetings, work or from getting things needed for daily living? Yes, it has kept me from medical appointments or getting medications. 05/17/2023 Utilities Answer Date Recorded In the past 12 months, has t he electric, gas, oil or water [employer] threatened to shut off services in your home? No 05/17/2023 Sex and Gender Information Value Date Recorded Sex Assigned at Male 02/13/2022 10:15 AM EDT Legal Sex Male 10:15 AM EDT Gender Identity Male 02/13/2022 10:15 AM EDT Sexual Orientation Straight 02/13/2022 10 :15 AM EDT documented as of this encounter Miscellaneous Notes * Telephone Encounter - Paulette Michaud MA - 06/09/2024 2:00 PM EST Chart Prep Labs: not done Images: not done Vaccines due: Covid Due, PCV20 Due, Flu Due, and RSV in Pharmacy Due Referrals: Orthopedics Requested notes by Fax. Waiting for notes. Screenings: Colonoscopy Overdue care gaps: Sbirt, SDOH, PHQ-9, and Oral Health documented in this encounter Plan of Treatment Not on file documented as of this encounter Visit Diagnoses Not on filedocumented in this encounter Care Teams Wellness Nurse Relationship Specialty Start Date End Date Gabriela Myrick MD [address] [place] [address] PCP - General Family Medicine 05/08/11 documented as of this encounter
--- OUTSIDE RECORDS SUMMARY | 2024-06-12 14:01 | XMS_ITS | Encounter Summary ---
Author Organization [employer] Address [address] [facility] 7t [place] [address] Care Team Providers Care Waste Disposal Attendant Name Role Phone Gabriela Myrick MD Primary Care Provider [phone] Reason for Visit * Reason Comments Pre-visit Planning SDOH unable to reach , number disconnected Encounter Details Date Type Department Care Team ([facility] st Contact Info) Description 06/04/2024 Patient Outreach [facility] [address] [place], [place] [phone] Gabriela Myrick MD [address] [place] [address] Pre-visit Planning (SDOH unable to reach, number disconnected) Social History Tobacco Use Types Packs/Day Years [...] t he electric, gas, oil or water company threatened to shut off services in your home? No 05/17/2023 Sex and Gender Information Value Date Recorded Sex Assigned at Male 02/13/2022 10:15 AM EDT Legal Sex Male 10:15 AM EDT Gender Identity Male 02/13/2022 10:15 AM EDT Sexual Orientation Straight 02/13/2022 10 :15 AM EDT documented as of this encounter Progress Notes * Araceli Bhatt - 06/04/2024 3:05 PM EST CC Araceli Garrido placed outbound call to patient to complete pre-visit planning. No answer at this time. Patient name and were not confirmed. CC unable to leave a message due to number not in service documented in this encounter Plan of Treatment Not on file documented as of this encounter Visit Diagnoses Not on filedocumented in this encounter Care Teams Waste Disposal Attendant Relationship Specialty Start Date End Date Gabriela Myrick MD [address] [place] [id number] PCP - General Family Medicine 05/08/11 documented as of this encounter
--- OUTSIDE RECORDS SUMMARY | 2024-06-12 14:01 | XMS_ITS | Encounter Summary ---
Author Organization [employer] Address [address] [facility] 7t [place] [address] Care Team Providers Care Fabric Normalizer Name Role Phone Gabriela Myrick MD Primary Care Provider Encounter Details Date Type Department Care Team ([facility] st Contact Info) Description 10/17/2023 Orders Only [facility] [address] [place], [place] [phone] Gabriela Myrick MD [address] [place], [place] [phone] Social History Tobacco Use Types Packs/Day Years [...] AM EDT documented as of this encounter Plan of Treatment Not on file documented as of this encounter Visit Diagnoses Not on filedocumented in this encounter Care Teams Fabric Normalizer Relationship Specialty Start Date End Date Gabriela Myrick MD [address] [place] [address] PCP - General Family Medicine 05/08/11 documented as of this encounter
--- OUTSIDE RECORDS SUMMARY | 2024-06-12 14:01 | XMS_ITS | Encounter Summary ---
Author Organization [employer] Address [address] [facility] 7t [place] [address] Care Team Providers Care Vp Talent Management Name Role Phone Gabriela Myrick MD Primary Care Provider [phone] Reason for Visit * Reason Comments Med Refill Encounter Details Date Type Department Care Team ([facility] st Contact Info) Description 01/02/2024 Refill [facility] [address] [place] [address] Raquel Braswell ANP [address] [place] [address] Chronic pain syndrome Social History Tobacco Use Types Packs/Day Years [...] documented as of this encounter Visit Diagnoses Diagnosis Chronic pain syndrome documented in this encounter Care Teams Vp Talent Management Relationship Specialty Start Date End Date Gabriela Myrick MD [address] [place] [address] PCP - General Family Medicine 05/08/11 documented as of this encounter
--- OUTSIDE RECORDS SUMMARY | 2024-06-12 14:01 | XMS_ITS | Encounter Summary ---
Author Organization [employer] Address [address] [facility] [address] 7t [place] [address] Care Team Providers Care Professor Of Art Name Role Phone Gabriela Myrick MD Primary Care Provider [phone] Encounter Details Date Type Department Care Team (Latest Contact Info) Description 06/12/2024 Travel Social History Tobacco Use Types Packs/Day Years Used Date Smoking Tobacco: Never Smokeless Tobacco: Never Alcohol Use Standard Drinks/Week Comments Not Currently 0 (1 standard drink = 0.6 oz pur e alcohol) Depression Answer Date Recorded Patient Health Questionnaire-9 Score 14 06/12/2024 Patient Health Questionnaire-9 Score 14 06/12/2024 Last PHQ-9: Questionnaire Data Not on file 0 06/12/2024 Housing Stability Answer Date Recorded What is your housing situation today? I do not have housing (Staying with others, in a hotel, in a jail, living outside on the street, on a beach, in a car, or in a park 06/12/[address] you li ve. Do you have problems with any of the following? None of the above 06/12/2024 Food Insecurity Answer Date Recorded Within the past 12 months, y ou worried that your food would run out before you got money to buy more: Never True 06/12/2024 Within the past 12 months,th e food you bought just didn't last and you didn't have enough money to get more: Never True Transportation Answer Date Recorded In the past 12 months, has l ack of transportation kept you from medical appts, meetings, work or from getting things needed for daily living? Yes, it has kept me from medical appointments or getting medications. 06/12/2024 Utilities Answer Date Recorded In the past 12 months, has t he [employer], oil or water company threatened to shut off services in your home? No 06/12/2024 Depression Answer Date Recorded Patient Health Questionnaire-2 Score 4 06/12/2024 Internet Access Answer Date Recorded Internet Access Q1 Yes 06/12/2024 Internet Access Q2 Not on file 06/12/2024 Sex and Gender Information Value Date Recorded Sex Assigned at Male 02/13/2022 10:15 AM EDT Legal Sex Male 10:15 AM EDT Gender Identity Male 02/13/2022 10:15 AM EDT Sexual Orientation Straight 02/13/2022 10 :15 AM EDT documented as of this encounter Plan of Treatment Not on file documented as of this encounter Visit Diagnoses Not on filedocumented in this encounter Additional Health Concerns Assessment Noted Time PHQ-9 Depression Total Score: 14 025 1:08 PM EST documented as of this encounter Care Teams Professor Of Art Relationship Specialty Start Date End Date Gabriela Myrick MD [address] [place] [address] PCP - General Family Medicine 05/08/11 documented as of this encounter
--- OUTSIDE RECORDS SUMMARY | 2024-06-12 14:02 | XMS_ITS | Encounter Summary ---
Author Organization [employer] Address [address] [facility] 7t [place] [address] Care Team Providers Care System Administration Advisor Name Role Phone Gabriela Myrick MD Primary Care Provider [phone] Encounter Details Date Type Department Care Team (Late st Contact Info) Description 03/20/2023 Abstract [facility] [address] [place], [place] [phone] Domo Kilgore DMD [address] [place] [address] Social History Tobacco Use Types Packs/Day Years Used Date Smoking Tobacco: Never Smokeless Tobacco: Never Alcohol Use Standard Drinks/Week Comments Not Currently 0 (1 standard drink = 0.6 oz pur e alcohol) Sex and Gender Information Value Date Recorded Sex Assigned at Male 02/13/2022 10:15 AM EDT Legal Sex Male 10:15 AM EDT Gender Identity Male 02/13/2022 10:15 AM EDT Sexual Orientation Straight 02/13/2022 10 :15 AM EDT documented as of this encounter Plan of Treatment Not on file documented as of this encounter Visit Diagnoses Not on filedocumented in this encounter Care Teams System Administration Advisor Relationship Specialty Start Date End Date Gabriela Myrick MD [address] [place] [address] PCP - General Family Medicine 05/08/11 documented as of this encounter
--- OUTSIDE RECORDS SUMMARY | 2024-06-12 14:02 | XMS_ITS | Encounter Summary ---
Author Organization [employer] Address [address] [facility] 7t [place] [address] Care Team Providers Care Mathematical Physicist Name Role Phone Gabriela Myrick MD Primary Care Provider Encounter Details Date Type Department Care Team (Late st Contact Info) Description 06/12/2024 10:30 AM EST Office Visit [facility] [address] [place], [place] [phone] Gabriela Myrick MD [address] [place] [address] Chronic pain syndrome (Primary Dx); Moderate persistent asthma without complication; Hypertension, unspecified type; Tubular adenoma of colon; Erectile dysfunction, unspecified erectile dysfunction type; Chronic left shoulder pain; Chronic pain of left lower extremity; Mood disorder (CMS/HCC); Generalized anxiety disorder; Dyslipidemia; Blurry vision; Health care maintenance; Axillary abscess; Abscess of multiple sites; Lower urinary tract symptoms (LUTS); Left hip pain Social History Tobacco Use Types Packs/Day Years [...] with others, in a hotel, in a halfway, living outside on the street, on a [...] AM EDT documented as of this encounter Last Filed Vital Signs Vital Sign Reading Time Taken Comments Blood Pressure - - Pulse 62 06/12/2024 10:55 AM EST Temperature 36.4 ??C (97.6 ??F) 06/12/2024 10:[address] Respiratory Rate 17 06/12/2024 10:55 AM EST Oxygen Saturation 93% 06/12/2024 10:55 AM EST Inhaled Oxygen Concentration - - Weight 74.8 kg (165 lb) 06/12/2024 10:55 AM EST Height - - Body Mass Index 25.09 02/07/2021 12:10 AM EDT documented in this encounter Miscellaneous Notes * Assessment & Plan Note - Gabriela Myrick MD - 06/12/2024 10:32 AM ESTAssociated Problem(s): Chronic pain syndrome - chronic left shoulder pain and leg pain - history of fracture of left leg - previously on gabapentin and tramadol - will restart both gabapentin and tramadol with caution * Assessment & Plan Note - Gabriela Myrick MD - 06/12/2024 5:46 AM ESTAssociated Problem(s): Abscess of multiple sites - chest wall abscess / cellulitis, requiring hospitalization for IV antibiotics and I & D in Jan 2023. Wound cultures MRSA. - axillary abscesses recurrent, I & D in Feb 2023 and Mar 2024. Wound Cx MRSA. documented in this encounter Plan of Treatment Scheduled Orders Name Type Priority Associated Diagnoses Orde r Schedule PSA, Screen Lab Routine Lower urinary tract symptoms (LUTS) Expected: 06/12/2024 (Approximate), Expires: 06/12/2025 documented as of this encounter Procedures Procedure Name Priority Date/Time Associated Diagnosis Comments XR HIP 2 OR 3 VIEWS LEFT Routine 06/12/2024 11:33 AM EST Left hip pain documented in this encounter Results * XR Hip 2 or 3 Views Left (06/12/2024 11:33 AM EST) Anatomical Region Laterality Modality Lower Extremities, Hip Left Radiograp hic Imaging 06/12/2024 11:3 3 AM EST Narrative 06/12/2024 12:05 PM EST ?[facility] ?[address] ?[place] [address] ?XRay Report ? Signed ? Patient: Singh,Pito ?MR#: [id number] ? : 1965 ?Acct:[id number] ? Age/Sex: 59 / M ?ADM Date: 02/27/25 ? Loc: HO.HHCX ? Attending Sam Myrick MD ? Ordering Physician: Gabriela Myrick MD ?? Date of Service: 06/12/24 ?? Procedure(s): XR hip LT min 2V ?? Accession Number(s): [id number] ? cc: Gabriela Myrick MD ? EXAMINATION: ?? XR HIP, LEFT ? CLINICAL INFORMATION: ?? left hip pain ? COMPARISON: ?? None available. ? TECHNIQUE: ?? Two views of the left hip. ? FINDINGS: ?? No fracture, dislocation, or suspicious bone lesion. Normal alignment. ?? Moderate osteoarthrosis of the left hip joint with superior joint space ?? narrowing, mild subchondral sclerosis, and marginal spurs of the ?? acetabulum. There are subcapital femoral spurs. ?? The femoral head has normal contour without evidence of AVN. Normal ?? acetabular coverage evident. ? No soft tissue abnormalities. ? XR/XR hip LT min 2V ?? IMPRESSION: ?? Moderate osteoarthrosis of the left hip joint. No acute findings seen. ? Electronically signed by: ??Bhupendra Aguirre MD ??06/12/2024 12:02 PM EST RP ? Dictated By: ?Bhupendra Aguirre MD ? Signed By: ?<Electronically signed by Bhupendra Aguirre MD in OV> ?06/12/24 1202 ? DD/ 1133 ? TD/TT: 06/12/24 1148 ? Pension Adviser: ? Procedure Note Pati, Image - 06/12/[address] [address] XRay Report Signed Patient: Pito SinghMR#: [id number] : 1965Acct:[id number] Age/Sex: 59 / MADM Date: 06/12/24 Loc: HO.HHCX Attending Dr: Gabriela Myrick MD Ordering Physician: Gabriela Myrick MD Date of Service: 06/12/24 Procedure(s): XR hip LT min 2V Accession Number(s): [id number] cc: Gabriela Myrick MD EXAMINATION: XR HIP, LEFT CLINICAL INFORMATION: left hip pain COMPARISON: None available. TECHNIQUE: Two views of the left hip. FINDINGS: No fracture, dislocation, or suspicious bone lesion. Normal alignment. Moderate osteoarthrosis of the left hip joint with superior joint space narrowing, mild subchondral sclerosis, and marginal spurs of the acetabulum. There are subcapital femoral spurs. The femoral head has normal contour without evidence of AVN. Normal acetabular coverage evident. No soft tissue abnormalities. XR/XR hip LT min 2V IMPRESSION: Moderate osteoarthrosis of the left hip joint. No acute findings seen. Electronically signed by: Bhupendra Aguirre MD 06/12/2024 12:02 PM EST Dictated By: Bhupendra Aguirre MD Signed By: <Electronically signed by Bhupendra Aguirre MD in OV> 06/12/24 1202 DD/ 1133 TD/TT: 06/12/24 1148 Pension Adviser: Gabriela Myrick MD IMG XR PROCEDURES Final Result documented in this encounter Visit Diagnoses Diagnosis Chronic pain syndrome- Primary Moderate persistent asthma without complication Hypertension, unspecified type Tubular adenoma of colon Benign neoplasm of colon Erectile dysfunction, unspecified erectile dysfunction type Chronic left shoulder pain Pain in joint, shoulder region Chronic pain of left lower extremity Mood disorder (CMS/HCC) Unspecified episodic mood disorder Generalized anxiety disorder Dyslipidemia Other and unspecified hyperlipidemia Blurry vision Other specified visual disturbances Health care maintenance Axillary abscess Cellulitis and abscess of upper arm and forearm Abscess of multiple sites Lower urinary tract symptoms (LUTS) Left hip pain Pain in joint, pelvic region and thigh documented in this encounter Additional Health Concerns Assessment Noted Time PHQ-9 Depression Total Score: 14 025 1:08 PM EST documented as of this encounter Care Teams Mathematical Physicist Relationship Specialty Start Date End Date Gabriela Myrick MD [address] [place] [address] PCP - General Family Medicine 05/08/11 documented as of this encounter
--- OUTSIDE RECORDS SUMMARY | 2024-06-12 14:02 | XMS_ITS | Encounter Summary ---
Author Organization [employer] Address 75 [facility] 7t [place] [address] Care Team Providers Care Property Site Manager Name Role Phone Gabriela Myrick MD Primary Care Provider [phone] Encounter Details Date Type Department Care Team (Latest Contact Info) Description 03/26/2019 Abstract [facility] CONVERSIONS Dental, Provider, DDS Social History Tobacco Use Types Packs/Day Years Used Date Smoking Tobacco: Never Assessed Sex and Gender Information Value Date Recorded Sex Assigned at Male 02/13/2022 10:15 AM EDT Legal Sex Male 10:15 AM EDT Gender Identity Male 02/13/2022 10:15 AM EDT Sexual Orientation Straight 02/13/2022 10 :15 AM EDT documented as of this encounter Plan of Treatment Not on file documented as of this encounter Visit Diagnoses Not on filedocumented in this encounter Care Teams Property Site Manager Relationship Specialty Start Date End Date Gabriela Myrick MD [address] [place] [address] PCP - General Family Medicine 05/08/11 documented as of this encounter
--- OUTSIDE RECORDS SUMMARY | 2024-06-12 14:02 | XMS_ITS | Encounter Summary ---
Author Organization [employer] Address 75 [facility] 7t [place] [address] Care Team Providers Care Blueprint Machine Operator Name Role Phone Gabriela Myrick MD Primary Care Provider [phone] Encounter Details Date Type Department Care Team (Latest Contact Info) Description 04/14/2020 Abstract [facility] CONVERSIONS Dental, Provider, DDS Social History Tobacco [...] on filedocumented in this encounter Care Teams Blueprint Machine Operator Relationship Specialty Start Date End Date Gabriela Myrick MD [address] [place] [address] PCP - General Family Medicine 05/08/11 documented as of this encounter
--- OUTSIDE RECORDS SUMMARY | 2024-06-12 14:02 | XMS_ITS | Encounter Summary ---
Author Organization [employer] Address [address] [facility] 7t [place] [address] Care Team Providers Care Skid Wrapper Name Role Phone Gabriela Myrick MD Primary Care Provider [phone] Reason for Visit * Reason Onset Date Comments Insurance 06/11/2024 Encounter Details Date Type Department Care Team ([facility] st Contact Info) Description 06/11/2024 Telephone [facility] [address] [place], [place] [phone] Gabriela Myrick MD [address] [place] [address] Insurance Social History Tobacco Use Types Packs/Day Years [...] with others, in a hotel, in a alf, living outside on the street, on a [...] encounter Miscellaneous Notes * Telephone Encounter - Khushboo Cook - 06/11/2024 9:30 AM EST Called Patient no answer left vm, advised to call back because Patient insurance is not found. Patient must have active insurance before appointment. documented in this encounter Plan of Treatment Not on file documented as of this encounter Visit Diagnoses Not on filedocumented in this encounter Care Teams Skid Wrapper Relationship Specialty Start Date End Date Gabriela Myrick MD [address] [place] [id number] PCP - General Family Medicine 05/08/11 documented as of this encounter
--- OUTSIDE RECORDS SUMMARY | 2024-06-12 14:02 | XMS_ITS | Encounter Summary ---
Author Organization [employer] Address [address] [facility] 7t [place] [address] Care Team Providers Care Retail Loan Officer Name Role Phone Gabriela Myrick MD Primary Care Provider [phone] Encounter Details Date Type Department Care Team (Late st Contact Info) Description 03/27/2023 Abstract [facility] [address] [place], [place] [phone] Domo Kilgore DMD [address] [place] [address] Social History Tobacco Use Types Packs/Day Years [...] on filedocumented in this encounter Care Teams Retail Loan Officer Relationship Specialty Start Date End Date Gabriela Myrick MD [address] [place] [address] PCP - General Family Medicine 05/08/11 documented as of this encounter
--- OUTSIDE RECORDS SUMMARY | 2024-06-12 14:02 | XMS_ITS | Encounter Summary ---
Author Organization [employer] Address [address] [facility] 7t [place] [address] Care Team Providers Care Turner Splitter Machine Operator Name Role Phone Gabriela Myrick MD Primary Care Provider [phone] Encounter Details Date Type Department Care Team ([facility] st Contact Info) Description 03/20/2023 Abstract [facility] MEDICINE [address] [place] [address] Gabriela Myrick MD [address] [place] [address] Social History Tobacco Use Types Packs/Day Years [...] on file documented as of this encounter Procedures Procedure Name Priority Date/Time Associated Diagnosis Comments COLONOSCOPY Routine 05/03/2020 documented in this encounter Results * Colonoscopy (05/03/2020) Colonoscopy Normal Normal Andrew Shore MD HEALTH MAINTENANCE Edited Re sult - Final documented in this encounter Visit Diagnoses Not on filedocumented in this encounter Care Teams Turner Splitter Machine Operator Relationship Specialty Start Date End Date Gabriela Myrick MD [address] [place] [address] PCP - General Family Medicine 05/08/11 documented as of this encounter
--- OUTSIDE RECORDS SUMMARY | 2024-06-12 14:02 | XMS_ITS | Clinical Summary ---
Author Organization [employer] Address [address] [facility] 7t [place] [address] Care Team Providers Care Telecom Network Manager Name Role Phone Gabriela Myrick MD Primary Care Provider [phone] Allergies Active Allergy Reactions Criticality Noted Date Comments Morphine Hives 04/22/2010 Penicillins Hives 04/21/2010 Shellfish Allergy 02/13/2023 Other reaction(s): shortness of breath, hives Medications * This document contains information received from the source organization and may not represent a complete record from that organization. Gabapentin 10 % cream Take 800 mg by mouth. 08/11/19 20 Active albuterol (2.5 MG/3ML) 0.083% nebulizer solution Take 3 mL (2.5 mg) by nebulization every 4 (four) hours if needed for wheezing. 75 mL 1 09/13/19 24 Active FLUoxetine (PROzac) 20 MG capsule Take 1 capsule (20 mg) by mouth Once per day. 90 capsule 3 09/13/19 24 Active Multiple Vitamin (Multi-Vitami n) tablet Take 1 tablet by mouth Once per day. 90 tablet 3 09/13/19 24 Active naloxone (Narcan) 4 mg/0.1 mL nasal spray Administer 1 spray (4 mg) into affected nostril(s) if needed for opioid reversal. May repeat every 2-3 minutes if needed, alternating nostrils, until medical assistance becomes available. 2 each 1 09/13/19 24 025 Active Ventolin HFA 108 (90 Base) MCG/ACT inhaler INHALE 2 PUFFS BY MOUTH EVERY 4 HOURS 18 g 3 02/11/20 24 Active montelukast (Singulair) 10 MG tablet Take 1 tablet (10 mg) by mouth at bedtime. 90 tablet 3 27/20 25 Active budesonide-fo rmoterol (Symbicort) 80-4.5 MCG/ACT inhaler 2 puffs twice daily and 1-2 puff every 4-6 hours as needed for difficulty breathing. Maximum 12 puffs per day. Rinse mouth with water after use. Do not swallow. 1 each 06/12/19 25 Active traMADol (Ultram) 50 MG tabletIndicat ions:Chronic pain syndrome Take 1 tablet (50 mg) by mouth if needed each day for severe pain. 30 tablet 06/12/19 25 Active gabapentin (Neurontin) 600 MG tablet Take 1 tablet (600 mg) by mouth 2 times daily. 60 tablet 06/12/19 25 Active amLODIPine (Norvasc) 2.5 MG tablet Take 1 tablet (2.5 mg) by mouth Once per day. 90 tablet 06/12/19 25 Active mupirocin (Bactroban) 2 % ointment Apply topically 3 times daily for 10 days. 22 g 06/12/19 25 025 Active montelukast (Singulair) 10 MG tablet Take 1 tablet (10 mg) by mouth at bedtime. 90 tablet 09/13/19 025 Discontinued(R eorder (will not trigger notification to Pharmacy)) gabapentin (Neurontin) 600 MG tablet Take 1 tablet (600 mg) by mouth 2 times daily. 60 tablet 09/13/19 24 025 Discontinued(R eorder (will not trigger notification to Pharmacy)) amLODIPine (Norvasc) 2.5 MG tablet Take 1 tablet (2.5 mg) by mouth Once per day. 90 tablet 09/13/19 025 Discontinued(R eorder (will not trigger notification to Pharmacy)) traMADol (Ultram) 50 MG tabletIndicat ions:Chronic pain syndrome TAKE 1 TABLET BY MOUTH EVERY DAY NEEDED FOR SEVERE PAIN 30 tablet 01/10/20 24 025 Discontinued(R eorder (will not trigger notification to Pharmacy)) Active Problems Problem Noted Date Diagnosed Date Health care maintenance 06/12/2024 Axillary abscess 06/12/2024 Abscess of multiple sites 06/12/2024 Assessment & Plan (06/12/2024 5:46 AM EST): - chest wall abscess / cellulitis, requiring hospitalization for IV antibiotics and I & D in Jan 2023. Wound cultures MRSA. - axillary abscesses recurrent, I & D in Feb 2023 and Mar 2024. Wound Cx MRSA. Generalized anxiety disorder 09/13/2023 Assessment & Plan (09/18/2023 9:58 AM EDT): During IBH Consult Pito presenting with excessive worry/anxiety, difficulty controlling worry, restless/keyed up/On edge, difficulty concentrating/Mind going blank , irritability, and sleep disturbance difficulty staying asleep and Abnormally elevated mood, Decreased need for sleep, Flight of ideas, Excessive goal directed activity, and Changes in self-image; for a period of 18+ mo, for all symptoms in the context of family issues and relationship issues. Pito reported being engaged in the past with services but lost care about two years ago. Severity of sxs are interfering with interpersonal relationships. Pito lost his family, friend and dog due to high instability. During today's session, he seemed very anxious. We practiced grounding techniques to help decrease sxs (square breathing, soft belly breathing). Pt is willing to continue practicing techniques at home. PLAN: (check all that apply) New/Additional Services needed Off-site services for Behavioral Health Integration Plan External OP therapy referral and OP psychiatry Referral Patient Self Plan Patient to utilize skills provided in intervention , [facility] as needed, Comply with medication , Patient to engage in OP therapy , and Patient to reach out to [facility] as needed Blurry vision 09/13/2023 Assessment & Plan (09/13/2023 12:28 PM EDT): - refer to eye care Hypertension 03/16/2023 03/16/2023 Assessment & Plan (09/13/2023 12:25 PM EDT): -Goal BP < 140/90 per JNC-8 and < 130/80 per ACC/AHA guideline (Treatment threshold >=140/90) - BP at goal -Continue working on lifestyle modifications -Recommended self-monitoring BP. -Continue current medications: amlodipine 2.5 mg daily -Recommended to reduce alcohol consumption -Follow up in 3-6 mo, sooner if any problem arises Shoulder pain 02/24/2016 03/16/2023 Assessment & Plan (09/13/2023 12:26 PM EDT): - left side is worse than the right side - previously following with the orthopedist - Will refer him to the orthopedist Asthma 03/02/2015 03/16/2023 Assessment & Plan (09/13/2023 12:23 PM EDT): - continue albuterol prn - will switch flovent to another inhaler for maintenance - continue singulair Tubular adenoma of colon 11/25/2014 023 Chronic pain syndrome 07/09/2014 03/16/2023 Assessment & Plan (06/12/2024 10:32 AM EST): - chronic left shoulder pain and leg pain - history of fracture of left leg - previously on gabapentin and tramadol - will restart both gabapentin and tramadol with caution Assessment & Plan (09/13/2023 12:22 PM EDT): - chronic left shoulder pain and leg pain - history of fracture of left leg - previously on gabapentin and tramadol - will restart both gabapentin and tramadol with caution Erectile dysfunction 07/09/2014 03/16/2023 Chronic pain of left lower extremity 07/09/2014 03/16/2023 Assessment & Plan (09/13/2023 12:25 PM EDT): - will check knee XR and refer to orthopedist Mood disorder 02/12/2014 03/16/2023 Assessment & Plan (09/18/2023 9:58 AM EDT): During IBH Consult Pito presenting with excessive worry/anxiety, difficulty controlling worry, restless/keyed up/On edge, difficulty concentrating/Mind going blank , irritability, and sleep disturbance difficulty staying asleep and Abnormally elevated mood, Decreased need for sleep, Flight of ideas, Excessive goal directed activity, and Changes in self-image; for a period of 18+ mo, for all symptoms in the context of family issues and relationship issues. Pito reported being engaged in the past with services but lost care about two years ago. Severity of sxs are interfering with interpersonal relationships. Pito lost his family, friend and dog due to high instability. During today's session, he seemed very anxious. We practiced grounding techniques to help decrease sxs (square breathing, soft belly breathing). Pt is willing to continue practicing techniques at home. PLAN: (check all that apply) New/Additional Services needed Off-site services for Behavioral Health Integration Plan External OP therapy referral and OP psychiatry Referral Patient Self Plan Patient to utilize skills provided in intervention , Patient to reach out to [facility] team as needed, Comply with medication , Patient to engage in OP therapy , and Patient to reach out to [facility] as needed Assessment & Plan (09/13/2023 12:27 PM EDT): - most likely bipolar disorder - alternative Dx: schizoaffective disorder - restart Prozac - patient reports ineffectiveness of antipsychotics - evaluated by clinician today - will refer him to psychiatrist Inguinal hernia 02/11/2014 03/16/2023 Dyslipidemia 09/07/2011 03/16/2023 Assessment & Plan (09/13/2023 12:28 PM EDT): - will check lab - work on lifestyle modifications Resolved Problems Problem Noted Date Diagnosed Date Resolved Date Anxiety 09/07/2011 03/16/2023 07/12/2023 Encounters Date Type Department Care Team Description 06/12/2024 10:30 AM EST Office Visit [facility] MEDICINE [address] [place] [phone] Gabriela Myrick MD Chronic pain syndrome (Primary Dx); Moderate persistent asthma without complication; Hypertension, unspecified type; Tubular adenoma of colon; Erectile dysfunction, unspecified erectile dysfunction type; Chronic left shoulder pain; Chronic pain of left lower extremity; Mood disorder (CMS/HCC); Generalized anxiety disorder; Dyslipidemia; Blurry vision; Health care maintenance; Axillary abscess; Abscess of multiple sites; Lower urinary tract symptoms (LUTS); Left hip pain 06/12/2024 Travel 06/11/2024 Telephone [facility] MEDICINE [address] [place] [phone] Gabriela Myrick MD Insurance 06/09/2024 Telephone [facility] MEDICINE [address] [place] [address] Gabriela Myrick MD Chart Prep 06/04/2024 Patient Outreach [facility] MED & PEDS [address] [place] [address] Gabriela Myrick MD Pre-visit Planning ([facility] unable to reach, number disconnected) 04/03/2024 Telephone [facility] ADULT DENTAL [address] [place] [address] Niki Douglas 03/24/2024 Telephone [facility] ADULT DENTAL [address] [place] [address] Niki Douglas from Last 3 Months Immunizations Name Administration Dates Next Due Hep B, adult 01/28/2007,08/12/2002,08/29/2001 Influenza Injectable Quadriv alant Preservative Free IIV4 MDCK 03/22/2020 Influenza injectable quadriv alent IIV4 with preservative 12/31/2017 Influenza injectable quadriv alent preservative free 02/07/2021,02/11/2019 Influenza, IIV3, injectable 02/11/2014,0 01/09/2011,01/28/2007,05/17 Influenza, seasonal, injecta ble, preservative free 06/12/2024 Pneumococcal Conjugate PCV 20 06/12/2024 Pneumococcal Polysaccharide PPSV23 05/08/2011, TD (adult), 2 Lf tetanus tox oid, preservative free, adsorbed 04/29/2018,12/03/2008 Tdap 05/08/2011 Zoster, Recombinant 05/24/2020,03/22/2020 Family History Medical History Relation Name Comments Asthma Brother Asthma Mother Asthma Sister Relation Name Status Comments Brother Mother Sister Social History Tobacco Use Types Packs/Day Years Used Date Smoking Tobacco: Never Smokeless Tobacco: Never Tobacco Cessation:Counseling Given: Not Answered Alcohol Use Standard Drinks/Week Comments Not Currently [...] with others, in a hotel, in a usp, living outside on the street, on a [...] Orientation Straight 02/13/2022 10 :15 AM EDT Last Filed Vital Signs Vital Sign Reading Time Taken Comments Blood Pressure 124/82 02/25/2024 8:37 AM EST Pulse 62 06/12/2024 10:55 AM EST Temperature 36.4 ??C (97.6 ??F) 06/12/2024 10:[address] Respiratory Rate 17 06/12/2024 10:55 AM EST Oxygen Saturation 93% 06/12/2024 10:55 AM EST Inhaled Oxygen Concentration - - Weight 74.8 kg (165 lb) 06/12/2024 10:55 AM EST Height 172.7 cm (5' 8 ) 02/07/2021 12:10 AM EDT Body Mass Index 25.09 02/07/2021 12:10 AM EDT Plan of Treatment Health Maintenance Due Date Last Done Comments CT Colonography 1965 FIT DNA/Cologuard 1965 FIT 1965 FOBT 1965 Lipid Panel 1965 Sigmoidoscopy 1965 Dental Oral Exam 10/14/2020 04/14/2020, , 03/03/2014, Additional history exists Dental Prophylaxis 10/14/2020 04/14/2020, 1 05/27/2018, 08/31/2015, Additional history exists Dental X-Ray: Full Mouth 02/12/2022 019, 03/03/2014, 03/03/2014 COVID-19 Vaccine ( season) 2023 RSV Patients and Patients Aged 60 years or older (1 - Risk 60-74 years 1-dose series) 2024 Dental X-Ray: Bitewings 02/15/2024 02/14/20 23, 04/14/2020, 02/11/2019, Additional history exists Depression Monitoring (PHQ-9) 12/10/2024 06/12/2024, 06/12/2024 Colonoscopy 05/03/2025 05/03/2020 Colorectal Cancer Screening 05/03/2025 Alcohol/Substance Use Screening 06/12/2025 06/12/2024 Depression Screening 06/12/2025 06/12/2024, 06/12/19 SDOH Screening 06/12/2025 06/12/2024 Tobacco Screening 06/12/2025 06/12/2024 DTaP/Tdap/Td Vaccines (3 - Td or Tdap) 04/29/2028 04/29/2018, 05/08/2011, 12/03/2008 Hepatitis B Vaccines Completed 01/28/2007, 08/12/2002, 08/29/2001 Zoster Vaccines Completed 05/24/2020, 03/22/2020 HIV Screening Completed 03/12/2023 Hepatitis C Screening Completed 03/12/2023 Influenza Vaccine Completed 06/12/2024, , 03/22/2020, Additional history exists Pneumococcal Vaccine: 50+ Years Completed 06/12/2024, 05/08/2011, 05/17/2005 HIB Vaccines Aged Out No longer eligi ble based on patient's age to complete this topic HPV Vaccines Aged Out No longer eligi ble based on patient's age to complete this topic Hepatitis A Vaccines Aged Out No long er eligible based on patient's age to complete this topic IPV Vaccines Aged Out No longer eligi ble based on patient's age to complete this topic Meningococcal Vaccine Aged Out No [place] eligible based on patient's age to complete this topic RSV under 20 months Aged Out No longe r eligible based on patient's age to complete this topic Rotavirus Vaccines Aged Out No longer eligible based on patient's age to complete this topic Procedures Procedure Name Priority Date/Time Associated Diagnosis Comments XR HIP 2 OR 3 VIEWS LEFT Routine 06/12/2024 11:33 AM EST Left hip pain HEPATITIS PANEL, GENERAL Routine 03/12/2023 3:29 PM EST HIV 1/2 ANTIGEN/ANTIBODY, FOURTH GENERATION W/RFL Routine 03/12/2023 3:29 PM EST BITEWING - SINGLE RADIOGRAPHIC IMAGE Routine 02/13/2023 8:00 AM EDT HM COLONOSCOPY Routine 05/03/2020 PROPHYLAXIS - ADULT Routine 04/14/2020 1 2:00 AM EST PERIODIC ORAL EVALUATION - ESTABLISHED PATIENT Routine 04/14/2020 12:00 AM EST INTRAORAL - COMPLETE SERIES OF RADIOGRAPHIC IMAGES Routine 02/11/2019 12:00 AM EDT from Last 3 Months or Most Recently Relevant to Health Maintenance Results * XR Hip 2 or 3 Views Left (06/12/2024 11:33 AM EST) Anatomical Region Laterality Modality Lower Extremities, Hip Left Radiograp hic Imaging 06/12/2024 11:3 3 AM EST Narrative 06/12/2024 12:05 PM EST ?[facility] ?[address] ?[place] [address] ?XRay Report ? Signed ? Patient: Singh,Pito ?MR#: [id number] ? : 1965 ?Acct:[id number] ? Age/Sex: 59 / M ?ADM Date: 06/12/24 ? Loc: HO.HHCX ? Attending Dr: Gabriela Myrick MD ? Ordering Physician: Gabriela Myrick MD ?? Date of Service: 06/12/24 ?? Procedure(s): XR hip LT min 2V ?? Accession Number(s): [id number] ? cc: Gabriela Myrick MD ? EXAMINATION: [...] DD/ 1133 ? TD/TT: 06/12/24 1148 ? Job Molder: ? Procedure Note Pati, Image - 06/12/[address] [address] XRay Report Signed Patient: Pito SinghMR#: [id number] : 1965Acct:[id number] Age/Sex: 59 / MADM Date: 06/12/24 Loc: HO.HHCX Attending Dr: Gabriela Myrick MD Ordering Physician: Gabriela Myrick MD Date of Service: 06/12/24 Procedure(s): XR hip LT min 2V Accession Number(s): [id number] cc: Gabriela Myrick MD EXAMINATION: XR HIP, [...] 06/12/24 1202 DD/ 1133 TD/TT: 06/12/24 1148 Job Molder: us Gabriela Myrick MD IMG XR PROCEDURES Final Result * Hepatitis Panel, General (03/12/2023 3:29 PM EST) Hepatitis A IgM Nonreactive Nonreactive [facility] Comment:IgM antibodies to CABRERA V not detected; does not exclude earlyacute or recovered HAV infection. ~Hepatitis B Surface Antibody REACTIVE Nonreactive [facility] Comment:REACTIVE: > 11.99 mI U/mL Hepatitis B Core Antibody Nonreactive Nonreactive [facility] Hepatitis C Antibody Nonreactive Nonreactive [facility] Comment:Antibodies to HCV no t detected; does not exclude early acuteHCV infection. Hepatitis B Surface Ag Negative Negative [facility] 03/12/2023 3:29 PM EST 03/12/2023 3:31 PM EST us Generic External Data Provider LAB BLOOD ORDERAB LES Final Result [facility] [address] [place] [phone] * HIV-1/2 Antigen and Antibodies, Fourth Generation, with Reflexes (03/12/2023 3:29 PM EST) HIV AB/AG Nonreactive Nonreactive [facility] Comment:HIV-1 p24 Ag and/or HIV-1/HIV-2 Ab not detected.A test result that is nonreactive does not exclude thepossibility of exposure to or infection with HIV-1 and/orHIV-2. Nonreactive results in this assay for individualswith prior exposure to HIV-1 and/or HIV-2 may be due toantigen and antibody levels that are below the limit ofdetection of this assay.The [employer] HIV Ag/Ab Combo assay result andsupplemental assay results should be interpreted inconjunction with the patient's clinical presentation,history and other laboratory results. If the results areinconsistent with clinical evidence, additional testing issuggested to confirm the result. 03/12/2023 3:29 PM EST 03/12/2023 3:31 PM EST us Generic External Data Provider LAB BLOOD ORDERAB LES Final Result [facility] [address] [place] [address] [phone] * Hm Colonoscopy (05/03/2020) Colonoscopy Normal Normal us Andrew Shore MD HEALTH MAINTENANCE Edited Re sult - Final from Last 3 Months or Most Recently Relevant to Health Maintenance Insurance [address] [place] [address] MEDICARE DENTAL [facility] Care Teams Telecom Network Manager Relationship Specialty Start Date End Date Gabriela Myrick MD [address] [place] [phone] PCP - General Family Medicine 05/08/11
== END 2024-06-12 11:33 | disposition home or self-care (01) ==
LOC: HO.HHCX 11:32
PROVIDERS: Visit Provider Family Medicine
DX: M25.552 Pain in left hip (principal)
CPT/HCPCS: 73502

== ENCOUNTER → 2024-06-12 11:33 | Outpatient (BNV) | payer MEDICARE, SELFPAY | PROVIDERS: Visit Provider Radiology Diagnostic Radiology | DX: M25.552 Pain in left hip (principal) | CPT/HCPCS: 73502 ==

== ENCOUNTER 2024-07-31 08:20 | Outpatient (REF) | payer MEDICARE, SELFPAY ==
--- OUTSIDE RECORDS SUMMARY | 2024-07-31 08:37 | XMS_ITS | Encounter Summary ---
Author Organization [employer] Address [address] [facility] [address]t [place] [address] Care Team Providers Care Cork Floor Installer Name Role Phone Gabriela Myrick MD Primary Care Provider Encounter Details Date Type Department Care Team ([facility] st Contact Info) Description 10/17/2023 Orders Only [facility] MEDICINE [address] [place], [place] [phone] Gabriela Myrick MD [address] [place], [place] [phone] Social History Tobacco Use Types Packs/Day Years [...] on filedocumented in this encounter Care Teams Cork Floor Installer Relationship Specialty Start Date End Date Gabriela Myrick MD [address] [place] [phone] PCP - General Family Medicine 05/08/11 documented as of this encounter
--- OUTSIDE RECORDS SUMMARY | 2024-07-31 08:37 | XMS_ITS | Encounter Summary ---
Author Organization [employer] Address [address] [facility] [address]t [place] [address] Care Team Providers Care Director Loan Name Role Phone Gabriela Myrick MD Primary Care Provider [phone] Reason for Referral * Consultation (Routine) - Authorized Specialty Diagnoses / Procedures Referred By Doreen baum Referred To Contact Orthopaedic Surgery Diagnoses Left hip pain Gabriela Myrick MD [address] [place] [address] Phone: tel: fax: [facility] Orthopedics [address] [place] [address] Phone: tel: Referral ID Status Reason Start Date Expiration Date Visits Requested Visits Authorized [id number] Authorized Specialty Services Required 06/20/2024 06/20/2025 1 1 Encounter Details Date Type Department Care Team (Late st Contact Info) Description 06/20/2024 Orders Only [facility] MEDICINE [address] [place] [address] Gabriela Myrick MD [address] [place] [address] Left hip pain (Primary Dx) Social History Tobacco Use Types Packs/Day Years [...] with others, in a hotel, in a snf, living outside on the street, on a [...] as of this encounter Plan of Treatment Scheduled Referrals Name Type Priority Associated Diagnoses Order Schedule Referral to Orthopaedic Surgery Outpatient Referral Routine Left hip pain Expected: 06/20/2024 (Approximate), Expires: 06/20/2025 documented as of this encounter Visit Diagnoses Diagnosis Left hip pain- Primary Pain in joint, pelvic region and thigh documented in this encounter Additional Health Concerns Assessment Noted Time PHQ-9 Depression Total Score: 14 025 1:08 PM EST documented as of this encounter Care Teams Director Loan Relationship Specialty Start Date End Date Gabriela Myrick MD [address] [place] [phone] PCP - General Family Medicine 05/08/11 documented as of this encounter
--- OUTSIDE RECORDS SUMMARY | 2024-07-31 08:37 | XMS_ITS | Encounter Summary ---
Author Organization [employer] Address [address] [facility] [address]t [place] [address] Care Team Providers Care Academic Affairs Director Name Role Phone Gabriela Myrick MD Primary Care Provider [phone] Reason for Visit * Reason Comments Med Refill Encounter Details Date Type Department Care Team ([facility] st Contact Info) Description 01/02/2024 Refill [facility] MEDICINE [address] [place] [address] Raquel Braswell ANP [address] [place] [address] Chronic pain syndrome Social History Tobacco Use [...] syndrome documented in this encounter Care Teams Academic Affairs Director Relationship Specialty Start Date End Date Gabriela Mryick MD [address] [place] [phone] PCP - General Family Medicine 05/08/11 documented as of this encounter
--- OUTSIDE RECORDS SUMMARY | 2024-07-31 08:38 | XMS_ITS | Encounter Summary ---
Author Organization [employer] Address [address] [facility] [address]t [place] [address] Care Team Providers Care Motocross Racer Name Role Phone Gabriela Myrick MD Primary Care Provider [phone] Encounter Details Date Type Department Care Team ([facility] st Contact Info) Description 03/20/[address] [facility] MEDICINE [address] [place] [address] Gabriela Myrick MD [address] [place] [address] Social History Tobacco Use Types Packs/Day Years [...] on filedocumented in this encounter Care Teams Motocross Racer Relationship Specialty Start Date End Date Gabriela Myrick MD [address] [place] [phone] PCP - General Family Medicine 05/08/11 documented as of this encounter
--- OUTSIDE RECORDS SUMMARY | 2024-07-31 08:38 | XMS_ITS | Encounter Summary ---
Author Organization [employer] Address [address] [facility] [address]t [place] [address] Care Team Providers Care Condenser Winder Name Role Phone Gabriela Myrick MD Primary Care Provider [phone] Encounter Details Date Type Department Care Team (Latest Contact Info) Description 04/14/2020 Abstract [facility] CONVERSIONS Dental, Provider, DDS Social History Tobacco [...] on filedocumented in this encounter Care Teams Condenser Winder Relationship Specialty Start Date End Date Gabriela Mryick MD [address] [place] [address] PCP - General Family Medicine 05/08/11 documented as of this encounter
--- OUTSIDE RECORDS SUMMARY | 2024-07-31 08:38 | XMS_ITS | Clinical Summary ---
Author Organization [employer] Address [address] [place] [address] Care Team Providers Care Die Sinker Apprentice Name Role Phone Gabriela Myrick MD Primary Care Provider [phone] Allergies Active Allergy Reactions Criticality Noted Date Comments Morphine Hives 04/22/2010 Penicillins Hives 04/21/2010 Shellfish Allergy 02/13/2023 Other reaction(s): shortness of breath, hives Medications * This document contains information received from the source organization and may not represent a complete record from that organization. Gabapentin 10 % cream Take 800 mg by mouth. 0 Active albuterol (2.5 MG/3ML) 0.083% nebulizer solution Take 3 mL (2.5 mg) by nebulization every 4 (four) hours if needed for wheezing. 75 mL 1 4 Active FLUoxetine (PROzac) 20 MG capsule Take 1 capsule (20 mg) by mouth Once per day. 90 capsule 3 4 Active Multiple Vitamin (Multi-Vitamin) tablet Take 1 tablet by mouth Once per day. 90 tablet 3 4 Active naloxone (Narcan) 4 mg/0.1 mL nasal spray Administer 1 spray (4 mg) into affected nostril(s) if needed for opioid reversal. May repeat every 2-3 minutes if needed, alternating nostrils, until medical assistance becomes available. 2 each 1 4 025 Active Ventolin HFA 108 (90 Base) MCG/ACT inhaler INHALE 2 PUFFS BY MOUTH EVERY 4 HOURS 18 g 3 4 Active montelukast (Singulair) 10 MG tabletIndication s:Moderate persistent asthma without complication Take 1 tablet (10 mg) by mouth at bedtime. 90 tablet 3 5 Active traMADol (Ultram) 50 MG tabletIndication s:Chronic pain syndrome,Chronic pain of left lower extremity Take 1 tablet (50 mg) by mouth if needed each day for severe pain. 30 tablet 5 Active gabapentin (Neurontin) 600 MG tabletIndication s:Chronic pain syndrome,Chronic pain of left lower extremity Take 1 tablet (600 mg) by mouth 2 times daily. 60 tablet 11 5 Active amLODIPine (Norvasc) 2.5 MG tabletIndication s:Hypertension, unspecified type Take 1 tablet (2.5 mg) by mouth Once per day. 90 tablet 3 5 Active budesonide-formo terol (Breyna) 80-4.5 MCG/ACT inhalerIndicatio ns:Moderate persistent asthma without complication Inhale 2 puffs in the morning and at bedtime. May take additional 1-2 puffs every 4 hours as needed for asthma symptoms. No more than 12 puffs per 24 hours. Rinse mouth with water after use to reduce aftertaste and incidence of candidiasis. 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 Wound cultures MRSA. - axillary abscesses recurrent, I & D in Feb 2023 and Mar 2024. Wound Cx MRSA. Rectal bleeding 06/12/2024 Assessment & Plan (06/12/2024 3:17 PM EST): - last colonoscopy by Dr. Shore in Apr 2020, normal but suboptimal prep - history of tubular adenoma - check FOBT Generalized anxiety disorder 09/13/2023 Assessment & Plan [...] intervention , Patient to reach out to [facility] team as needed, Comply with medication , Patient to engage in OP therapy , and Patient to reach out to [facility] as needed Blurry vision 09/13/2023 Assessment & Plan (06/13/2024 7:10 AM EST): - refer to eye care Assessment & Plan (09/13/2023 12:28 PM EDT): - refer to eye care Hypertension 03/16/2023 03/16/2023 Assessment & Plan (06/20/2024 4:31 PM EST): -Goal BP < 140/90 per JNC-8 and < 130/80 per ACC/AHA guideline (Treatment threshold >=140/90) - BP not at goal -Continue working on lifestyle modifications -Recommended self-monitoring BP. -Continue current medications: amlodipine 2.5 mg daily, improve adherence -Recommended to reduce alcohol, cocaine, and excessive sodium consumption Assessment & Plan (09/13/2023 12:25 PM EDT): -Goal BP < 140/90 per JNC-8 and < 130/80 per ACC/AHA guideline (Treatment threshold >=140/90) - BP at goal -Continue working on lifestyle modifications -Recommended self-monitoring BP. -Continue current medications: amlodipine 2.5 mg daily -Recommended to reduce alcohol consumption -Follow up in 3-6 mo, sooner if any problem arises Shoulder pain 02/24/2016 03/16/2023 Assessment & Plan (06/12/2024 3:17 PM EST): - left side is worse than the right side - previously following with the orthopedist - referred back in August 2023; patient missed appointment Assessment & Plan (09/13/2023 12:26 PM EDT): - left side is worse than the right side - previously following with the orthopedist - Will refer him to the orthopedist Asthma 03/02/2015 03/16/2023 Assessment & Plan (06/20/2024 4:30 PM EST): - Last exacerbation requiring systemic steroid > 1 year - Continue montelukast (Singulair) 10 MG tablet 06/12/24 - Start SMART with budesonide-formoterol (Breyna) 80-4.5 MCG/ACT inhaler 06/12/24 Assessment & Plan (09/13/2023 12:23 PM EDT): - continue albuterol prn - will switch flovent to another inhaler for maintenance - continue singulair Tubular adenoma of colon 11/25/2014 023 Assessment & Plan (06/12/2024 3:15 PM EST): - Most recent colonoscopy by Dr. Shore in Apr 2020, normal but suboptimal prep - recommended to repeat in 5 years Chronic pain syndrome 07/09/2014 03/16/2023 Assessment & [...] tramadol with caution Erectile dysfunction 07/09/2014 03/16/2023 Assessment & Plan (06/20/2024 4:31 PM EST): - check PSA Chronic pain of left lower extremity 07/09/2014 03/16/2023 Assessment & Plan (06/12/2024 3:22 PM EST): - knee XR in August 2023 Chronic tricompartmental osteoarthritis of the right knee, worst at the medial tibiofemoral compartment - chronic left leg pain due to history of fracture - patient has been using his hand-crafted cane for ambulation - continue judicious use of tramadol and gabapentin Assessment & Plan (09/13/2023 12:25 PM EDT): - will check knee XR and refer to orthopedist Mood disorder 02/12/2014 03/16/2023 Assessment & Plan (06/12/2024 3:24 PM EST): - most likely bipolar disorder - alternative Dx: schizoaffective disorder - prescribed fluoxetine in August 2023, but patient has not been taking it - patient reports ineffectiveness of antipsychotics - evaluated by clinician in August 2023, and was referred to off-site psych - will refer again for integrated behavioral health service Assessment & Plan (09/18/2023 9:58 AM EDT): [...] intervention , Patient to reach out to [facility] team as needed, Comply with medication , Patient to engage in OP therapy , and Patient to reach out to [facility] as needed Assessment & Plan (09/13/2023 12:27 PM EDT): - most likely bipolar disorder - alternative Dx: schizoaffective disorder - restart Prozac - patient reports ineffectiveness of antipsychotics - evaluated by clinician today - will refer him to psychiatrist Inguinal hernia 02/11/2014 03/16/2023 Dyslipidemia 09/07/2011 03/16/2023 Assessment & Plan (06/12/2024 3:06 PM EST): - will check lab - work on lifestyle modifications Assessment & Plan (09/13/2023 12:28 PM EDT): - will check lab - work on lifestyle modifications Resolved Problems Problem Noted Date Diagnosed Date Resolved Date Anxiety 09/07/2011 03/16/2023 07/12/2023 Encounters Date Type Department Care Team Description 06/21/2024 Telephone [facility] [address] [place] [address] Kathy Martínez, RN Results 06/20/2024 Orders Only [facility] [address] [place] [address] Gabriela Myrick MD Left hip pain (Primary Dx) 06/16/2024 Orders Only [address] [address] Gabriela Myrick MD Moderate persistent asthma without complication (Primary Dx) 06/16/[address] [address] Gabriela Myrick MD Symbicort PA 06/12/2024 10:30 AM EST Office Visit [address] [address] Gabriela Myrick MD Chronic pain syndrome (Primary Dx); Moderate persistent asthma without complication; Hypertension, unspecified type; Tubular adenoma of colon; Erectile dysfunction, unspecified erectile dysfunction type; Chronic left shoulder pain; Chronic pain of left lower extremity; Mood disorder (CMS/HCC); Generalized anxiety disorder; Dyslipidemia; Blurry vision; Health care maintenance; Axillary abscess; Abscess of multiple sites; Lower urinary tract symptoms (LUTS); Left hip pain; Rectal bleeding 06/12/2024 Patient Outreach [address] [address] Gabriela Myrick MD Care Coordination ([facility] outreach for [facility] housing search-referral completed ) 06/12/2024 Travel 06/11/[address] [address] Gabriela Myrick MD Insurance 06/09/[address] [address] Gabriela Myrick MD Chart Prep 06/04/2024 Patient Outreach [facility] [address] [place], [place] [phone] Gabriela Myrick MD Pre-visit Planning ([facility] unable to reach, number disconnected) from Last 3 Months Immunizations Name Administration [...] with others, in a hotel, in a intermediate, living outside on the street, on a [...] Sign Reading Time Taken Comments Blood Pressure 140/86 06/12/2024 10:55 AM EST Pulse 62 06/12/2024 10:55 AM [...] 04/14/2020, 02/11/2019, Additional history exists Depression Monitoring 12/10/2024 06/12/2024, 025 Colonoscopy 05/03/2025 05/03/2020 Colorectal Cancer Screening 05/03/2025 Alcohol/Substance Use Screening 06/12/2025 06/12/2024 Depression Screening 06/12/2025 06/12/2024, 06/12/19 SDOH Screening 06/12/2025 06/12/2024 Tobacco Screening 06/20/2025 06/20/2024 DTaP/Tdap/Td Vaccines (3 - Td or Tdap) [...] AM EST Narrative 06/12/2024 12:05 PM EST ?[facility] ?[address] ?[place] [address] ?XRay Report ? Signed ? Patient: Singh,Pito ?MR#: [id number] ? : 1965 ?Acct:[id number] ? Age/Sex: 59 / M ?ADM Date: 06/12/24 ? Loc: HO.HHCX ? Attending Dr: Gabriela Myrick MD ? Ordering Physician: Gabriela Myrick MD ?? Date of Service: 06/12/24 ?? Procedure(s): XR hip LT min 2V ?? Accession Number(s): [id number] ? cc: Gabriela Myrick MD ? EXAMINATION: [...] DD/ 1133 ? TD/TT: 06/12/24 1148 ? Enrobing Machine Feeder: ? Procedure Note Donotuseinterpreter, Image - 06/12/[address] [address] XRay Report Signed Patient: Pito SinghMR#: [id number] : 1965Acct:[id number] Age/Sex: 59 / MADM Date: 06/12/24 Loc: HO.HHCX Attending Dr: Gabriela Myrick MD Ordering Physician: Gabriela Myrick MD Date of Service: 06/12/24 Procedure(s): XR hip LT min 2V Accession Number(s): [id number] cc: Gabriela Myrick MD EXAMINATION: XR HIP, [...] 06/12/24 1202 DD/ 1133 TD/TT: 06/12/24 1148 Enrobing Machine Feeder: us Gabriela Myrick MD IMG XR PROCEDURES Final Result * Hepatitis Panel, General (03/12/2023 3:29 PM EST) Hepatitis A IgM Nonreactive Nonreactive [facility] Comment:IgM antibodies to CABRERA V not detected; does not exclude earlyacute or recovered HAV infection. ~Hepatitis B Surface Antibody REACTIVE Nonreactive [facility] Comment:REACTIVE: > 11.99 mI U/mL Hepatitis B Core Antibody Nonreactive Nonreactive [facility] Hepatitis C Antibody Nonreactive Nonreactive [facility] Comment:Antibodies to HCV no t detected; does not exclude early acuteHCV infection. Hepatitis B Surface Ag Negative Negative [facility] 03/12/2023 3:29 PM EST 03/12/2023 3:31 PM EST us Generic External Data Provider LAB BLOOD ORDERAB LES Final Result Performing Organization Address City/[facility] Co de Phone Number [facility] [address] [place] [phone] * HIV-1/2 Antigen and Antibodies, Fourth Generation, with Reflexes (03/12/2023 3:29 PM EST) HIV AB/AG Nonreactive Nonreactive [facility] Comment:HIV-1 p24 Ag and/or HIV-1/HIV-2 Ab not detected.A test result that is nonreactive does not exclude thepossibility of exposure to or infection with HIV-1 and/orHIV-2. Nonreactive results in this assay for individualswith prior exposure to HIV-1 and/or HIV-2 may be due toantigen and antibody levels that are below the limit ofdetection of this assay.The [employer] HIV Ag/Ab Combo assay result andsupplemental assay results should be interpreted inconjunction with the patient's clinical presentation,history and other laboratory results. If the results areinconsistent with clinical evidence, additional testing issuggested to confirm the result. 03/12/2023 3:29 PM EST 03/12/2023 3:31 PM EST us Generic External Data Provider LAB BLOOD ORDERAB LES Final Result Performing Organization Address City/[facility] Co de Phone Number [facility] [address] [place] [phone] * Colonoscopy (05/03/2020) Colonoscopy Normal Normal Andrew Shore MD HEALTH MAINTENANCE Edited Re sult - Final from Last 3 Months or Most Recently Relevant to Health Maintenance Insurance MEDICARE DENTAL [facility] [place] [id number] Care Teams Die Sinker Apprentice Relationship Specialty Start Date End Date Gabriela Myrick MD [address] [place] [phone] PCP - General Family Medicine 05/08/11
--- OUTSIDE RECORDS SUMMARY | 2024-07-31 08:38 | XMS_ITS | Encounter Summary ---
Author Organization [employer] Address [address] [place] [address] Care Team Providers Care Virtual Assistant Name Role Phone Gabriela Myrick MD Primary Care Provider [phone] Encounter Details Date Type Department Care Team (Late st Contact Info) Description 06/16/2024 Orders Only [facility] [address] [place], [place] [phone] Gabriela Myrick MD [address] [place], [place] [phone] Moderate persistent asthma without complication (Primary Dx) Social History Tobacco Use Types [...] with others, in a hotel, in a senior living, living outside on the street, on a [...] as of this encounter Visit Diagnoses Diagnosis Moderate persistent asthma without complication- Primary documented in this encounter Additional Health Concerns Assessment Noted Time PHQ-9 Depression Total Score: 14 025 1:08 PM EST documented as of this encounter Care Teams Virtual Assistant Relationship Specialty Start Date End Date Gabriela Myrick MD [address] [place] [address] PCP - General Family Medicine 05/08/11 documented as of this encounter
--- OUTSIDE RECORDS SUMMARY | 2024-07-31 08:38 | XMS_ITS | Encounter Summary ---
Author Organization [employer] Address [address] [place] [address] Care Team Providers Care Tank Worker Name Role Phone Gabriela Myrick MD Primary Care Provider [phone] Encounter Details Date Type Department Care Team (Latest Contact Info) Description 03/26/2019 Abstract [facility] CONVERSIONS Dental, Provider, DDS Social History Tobacco [...] on filedocumented in this encounter Care Teams Tank Worker Relationship Specialty Start Date End Date Gabriela Myrick MD [address] [place] [address] PCP - General Family Medicine 05/08/11 documented as of this encounter
--- OUTSIDE RECORDS SUMMARY | 2024-07-31 08:38 | XMS_ITS | Encounter Summary ---
Author Organization [employer] Address [address] [facility] [address] [place] [address] Care Team Providers Care Custodial Officer Name Role Phone Gabriela Myrick MD Primary Care Provider [phone] Encounter Details Date Type Department Care Team (Late st Contact Info) Description 03/27/2023 Abstract [facility] D[facility] [address] [place], [place] [phone] Domo Kilgore DMD [address] [place] [address] Social History Tobacco Use Types Packs/Day Years [...] on filedocumented in this encounter Care Teams Custodial Officer Relationship Specialty Start Date End Date Gabriela Myrick MD [address] [place] [address] PCP - General Family Medicine 05/08/11 documented as of this encounter
--- OUTSIDE RECORDS SUMMARY | 2024-07-31 08:38 | XMS_ITS | Encounter Summary ---
Author Organization [employer] Address [address] [facility] [address] [place] [address] Care Team Providers Care Ship'S Surveyor Name Role Phone Gabriela Myrick MD Primary Care Provider [phone] Encounter Details Date Type Department Care Team (Late st Contact Info) Description 03/20/2023 Abstract [facility] ADULT DENTAL [address] [place], [place] [phone] Domo Kilgore DMD [address] [place] [address] Social History Tobacco Use Types Packs/Day Years [...] on filedocumented in this encounter Care Teams Ship'S Surveyor Relationship Specialty Start Date End Date Gabriela Myrick MD [address] [place] [address] PCP - General Family Medicine 05/08/11 documented as of this encounter
== END 2024-07-31 08:21 | disposition home or self-care (01) ==
LOC: HO.HOSX 08:20
PROVIDERS: Visit Provider Orthopaedic Surgery
DX: Z13.89 Encounter for screening for other disorder (principal)

== ENCOUNTER 2024-09-20 15:08 | Emergency (ER) | payer MEDICARE, SELFPAY ==
--- NOTE | 2024-09-20 15:10 | ECG_ITS ---
Test Reason : CHEST PAIN Blood Pressure : */* mmHG Vent. Rate : 60 BPM Atrial Rate : 60 BPM P-R Int : 136 ms QRS Dur : 84 ms QT Int : 412 ms P-R-T Axes : 40 32 26 degrees QTcB Int : 412 ms Normal sinus rhythm Normal ECG When compared with ECG of 09-Jan-2011 19:33, No significant changes seen Referred By: Generic ED Physician Electronically Signed By: [place]
[2024-09-20 15:45] VITALS: BP 139/78; PULSE 61; RESP 18; TEMP 36.6; O2SAT 98; BMI 25.0
--- NOTE | 2024-09-20 15:45 | ED.CHESTPAIN ---
HPI - Chest Pain General Chief Complaint: Chest Pain Stated Complaint: chest pain Related Data Previous Rx's ?Medication ?Instructions ?Recorded cefuroxime axetil 500 mg tablet 500 mg PO BID 7 days #14 tabs 02/09/23 doxycycline hyclate 100 mg tablet 100 mg PO BID 7 days #14 tabs 02/09/23 cephalexin 500 mg tablet 500 mg PO Q6H 10 days #40 tabs 03/12/23 doxycycline hyclate 100 mg capsule 100 mg PO BID 10 days #20 caps 03/12/23 doxycycline hyclate 100 mg capsule 100 mg PO BID 21 days #42 caps 03/12/23 metronidazole 500 mg tablet 500 mg PO BID 7 days #14 tabs 03/12/23 cefuroxime axetil 500 mg tablet 500 mg PO BID #14 tabs 04/01/24 ibuprofen 400 mg tablet 400 mg PO Q6H PRN pain #14 tabs 04/01/24 sulfamethoxazole 800 1 tab PO BID #14 tabs 04/01/24 mg-trimethoprim 160 mg tablet (Bactrim DS) Allergies Allergy/AdvReac Type Severity Reaction Status Date / Time morphine (Morphine) Allergy Intermediate RASH Verified 09/20/24 15:46 penicillin G (Penicillin G) Allergy Intermediate RASH Verified 09/20/24 15:46 shrimp Allergy Anaphylaxis Verified 09/20/24 15:46 PMFSH Past Medical History Medical History Pain History of tibial fracture History of adenomatous polyp of colon Colon cancer screening Bipolar disorder Mood disorder Asthma Erectile dysfunction Hypertension Anxiety Surgical History Hx of left inguinal hernia repair S/P trigger finger release (Unknown) Social History Social History Household Members: None Housing: House Do you presently have visiting nurse or other home services: No Alcohol intake: current Alcohol intake frequency: a few times a month Alcohol type: beer Patient Tobacco Use Status: Never used Tobacco Substance Use Type: Crack/Cocaine service: No Current occupational status: retired Physical Exam Vital Signs: Vital Signs: Last Vital Signs Temp 97.8 F 09/20/24 15:45 Pulse 61 09/20/24 15:45 Resp 18 09/20/24 15:45 BP 139/78 09/20/24 15:45 Pulse Ox 98 09/20/24 15:45 O2 Del Method Room Air 09/20/24 15:45 BMI result Body Mass Index 25.0 Course Course Course Narrative: This is a Rapid Medical Exam performed in triage by Amy Edmonds PA-C. Full HPI, ROS and PE to be performed by primary ED provider. 59 yo M w/PMHx anxiety, HTN, bipolar, presenting to the ED c/o chest pain x 3 days w/ assoc LUE numbness. Admits sx are intermittent. PE: NAD, nontoxic appearing, ambulating with steady gait, no respiratory distress Plan: EKG, labs, x-ray Discharge Plan Discharge Clinical Impression: Chest pain Patient Disposition: Left W/O Completing Treatment Prescriptions: No Action doxycycline hyclate 100 mg tablet 100 mg PO BID 7 Days Qty: 14 0RF cefuroxime axetil 500 mg tablet 500 mg PO BID 7 Days Qty: 14 0RF cephalexin 500 mg tablet 500 mg PO Q6H 10 Days Qty: 40 0RF doxycycline hyclate 100 mg capsule 100 mg PO BID 10 Days Qty: 20 0RF doxycycline hyclate 100 mg capsule 100 mg PO BID 21 Days Qty: 42 0RF metronidazole 500 mg tablet 500 mg PO BID 7 Days Qty: 14 0RF sulfamethoxazole-trimethoprim [Bactrim DS] 800-160 mg tablet 1 tab PO BID Qty: 14 0RF cefuroxime axetil 500 mg tablet 500 mg PO BID Qty: 14 0RF ibuprofen 400 mg tablet 400 mg PO Q6H PRN (Reason: pain) Qty: 14 0RF Discharge Date/Time: 09/20/24 18:39
== END 2024-09-20 18:39 | disposition left against medical advice (07) ==
PROVIDERS: Emergency Provider Emergency Medicine; PCP Family Medicine
DX: R07.9 Chest pain, unspecified (principal); I10 Essential (primary) hypertension; F41.9 Anxiety disorder, unspecified
CPT/HCPCS: 93005; 99283

== ENCOUNTER → 2024-09-20 15:10 | Outpatient (BNV) | payer MEDICARE, SELFPAY | PROVIDERS: Emergency Provider Emergency Medicine; PCP Family Medicine; Visit Provider Internal Medicine | DX: R07.9 Chest pain, unspecified (principal) | CPT/HCPCS: 93010 ==

== ENCOUNTER 2024-11-05 08:41 | Outpatient (REF) | payer MEDICARE, SELFPAY ==
--- OUTSIDE RECORDS SUMMARY | 2024-11-05 08:59 | XMS_ITS | Encounter Summary ---
Author Organization [employer] Address [address] [facility] [address] [place] [address] Care Team Providers Care Photo Equipment Technician Name Role Phone Gabriela Myrick MD Primary Care Provider [phone] Encounter Details Date Type Department Care Team (Latest Contact Info) Description 04/14/2020 Abstract [facility] CONVERSIONS Dental, Provider, DDS Social History Tobacco [...] on filedocumented in this encounter Care Teams Photo Equipment Technician Relationship Specialty Start Date End Date Gabriela Myrick MD [address] [place] [phone] PCP - General Family Medicine 05/08/11 documented as of this encounter
[2024-11-05 11:12] LABS: MANUAL DIFF FLAG NO
[2024-11-05 11:16] LABS: Hematocrit 45.4 % (42.0-52.0); Hemoglobin 14.9 g/dl (14.0-18.0); Imm Gran Abs Auto 0.01 X10*3/uL (0.00-0.03); Imm Gran Pct Auto 0.2 % (0.0-0.4); Lymphocytes Absolute Auto 1.8 X10*3/uL (1.2-4.9); Mean Corpuscular HGB Conc 32.8 g/dl (31.0-36.0); Mean Corpuscular Hemoglobin 29.3 pg (27.0-33.0); Mean Corpuscular Volume 89.2 fL (80.0-98.0); NRBC Abs Auto 0.000 X10*3/uL (0.0-0.012); NRBC Pct Auto 0.0 /100WBC (0.0-0.2); Platelet Count 375 X10*3/uL (160-400); Red Blood Count 5.09 X10*6/uL (4.60-5.80); White Blood Count 5.0 X10*3/uL (4.8-10.8)
[2024-11-05 11:36] LABS: Hemoglobin A1C 145.5282 umol/L; Total Hemoglobin (HGBA1C) 3839.6982 umol/L
[2024-11-05 11:43] LABS: Alanine Aminotransferase 26 U/L (0-40); Albumin Level 4.3 g/dL (3.5-5.0); Alkaline Phosphatase 89 U/L (39-117); Anion Gap 9 (12-20); Aspartate Amino Transferase 26 U/L (5-37); Blood Urea Nitrogen 13 mg/dL (9-16); Calcium 9.0 mg/dL (8.4-10.2); Carbon Dioxide 26 mmol/L (22-29); Chloride 112 mmol/L (96-108); Cholesterol 218 mg/dL (<200); Estimated Glomerular Filt Rate > 60; HDL Cholesterol 52 mg/dL (>40); Potassium 4.2 mmol/L (3.3-5.1); Sodium 143 mmol/L (135-145); Total Protein 7.1 g/dL (6.5-8.0); Triglycerides 108 mg/dL (<150)
[2024-11-05 11:56] LABS: Syphilis Screen Nonreactive (Nonreactive)
[2024-11-05 11:58] LABS: HBsAGNum1 0.32 S/CO (0.00-0.99); HIV Num 1 0.07 S/CO (0.00-0.99); Hepatitis B Surface Antigen Negative (Negative); ~HepC Num1 0.09 S/CO (0.00-0.79); ~Hepatitis C Antibody Nonreactive (Nonreactive)
[2024-11-05 13:21] LABS: CT PCR Urine NOT DETECTED (Not Detect.); NG PCR Urine NOT DETECTED (Not Detect.)
[2024-11-05 13:38] LABS: Reflex LDLD? No
[2024-11-07 04:10] LABS: ~Hepatitis A Antibody IgG 0.52 S/CO (0.00-0.99)
== END 2024-11-05 08:42 | disposition home or self-care (01) ==
LOC: HO.HHCL 08:41
PROVIDERS: PCP Family Medicine; Visit Provider Family Medicine
DX: Z11.4 Encounter for screening for human immunodeficiency virus [HIV] (principal); Z11.3 Encounter for screening for infections with a predominantly sexual mode of transmission; Z01.84 Encounter for antibody response examination; Z13.1 Encounter for screening for diabetes mellitus; Z11.59 Encounter for screening for other viral diseases; I10 Essential (primary) hypertension; R39.9 Unspecified symptoms and signs involving the genitourinary system; E78.5 Hyperlipidemia, unspecified
CPT/HCPCS: 36415; 80053; 80061; 83036; 84153; 84443; 85025; 86708; 86780; 86803; 87340; 87389; 87491; 87591

== ENCOUNTER 2025-02-20 16:28 | Outpatient (REF) | payer MEDICARE, SELFPAY ==
--- OUTSIDE RECORDS SUMMARY | 2025-02-20 10:30 | XMS_ITS | Encounter Summary ---
Author Organization [employer] Address [address] [facility] 7t [place] [address] Care Team Providers Care Supervisor Seaming Name Role Phone Gabriela Myrick MD Primary Care Provider [phone] Reason for Visit * Reason Comments BEATER AND PULPER FEEDER Encounter Details Date Type Department Care Team (Latest Contact Info) Description 02/20/2025 10:30 AM EST Clinical Support [facility] MEDICINE [address] [place] [address] Nikki Evans RN [address] [place] [address] Chronic pain syndrome (Primary Dx); FDC current use of opioid Social History Tobacco Use Types Packs/Day Years Used Date Smoking Tobacco: Never Smokeless Tobacco: Never Alcohol Use Standard Drinks/Week Comments Not Currently 0 (1 standard drink = 0.6 oz pur e alcohol) Depression Answer Date Recorded Patient Health Questionnaire-9 Score 2025 Patient Health Questionnaire-9 Score 2025 Last PHQ-9: Questionnaire Data Not on file 0 2025 Housing Stability Answer Date Recorded What is your housing situation today? I do not have housing (Staying with others, in a hotel, in a care home, living outside on the street, on a [...] Answer Date Recorded Patient Health Questionnaire-2 Score 6 2025 Internet Access Answer Date Recorded Internet Access Q1 Yes 06/12/2024 Internet Access Q2 Not on file 06/12/2024 Sex and Gender Information Value Date Recorded Sex Assigned at Male 02/13/2022 10:15 AM EDT Legal Sex Male 10:15 AM EDT Gender Identity Male 02/13/2022 10:15 AM EDT Sexual Orientation Straight 02/13/2022 10 :15 AM EDT documented as of this encounter Functional Status * Over the last 2 weeks, how often have you been bothered by any of the following problems? Question Answer Date of Assessment Author Feeling nervous, anxious, or on edge 3 02/20/2025 11:04 AM Nikki Goss RN Not being able to stop or co ntrol worrying 1 02/20/2025 11:04 AM Nikki Goss RN Worrying too much about diff erent things 1 02/20/2025 11:04 AM Nikki Goss RN Trouble relaxing 3 02/20/2025 11:04 AM Nikki Goss RN Being so restless that it is hard to sit still 3 02/20/2025 11:04 AM Nikki Goss RN Becoming easily annoyed or irritable 3 02/20/2025 11:04 AM Nikki Goss RN Feeling afraid as if somethi ng awful might happen 1 02/20/2025 11:04 AM Nikki Goss RN HUSSEIN-7 Total Score 15 02/20/2025 11:04 AM Nikki Goss RN documented as of this encounter Progress Notes * Nikki Evans RN - 02/20/2025 10:30 AM EST SUBJECTIVE: Pito Singh is a 60 y.o. year old male who presents for BEATER AND PULPER FEEDER Preferred language for medical information: Guamanian Interpreted needed: No Patient is very emotional, crying. Stated his mom passed 2 days ago and he has been going through alot. Offered [facility] services, pt declined at this time. Admitted to using cocaine last night d/t his mom's passing. Utox negative for all tested substances. Sending it out to the lab for confirmation. Pt educated of the risks associated with the combination of illicit drugs and controlled sub stances and went over BEATER AND PULPER FEEDER Agreement rules, verbalized understanding. PCP notified. Pito Singh does report adherence to Tramadol (Ultram) 50 mg, take 1 tablet every 24 hours PRN, last refilled 01/05/25. The patient last took Tramadol (Ultram) on: 02/18/25 Medication is: 100% % effective at alleviating pain. OBJECTIVE: ENVIRONMENTAL AUDITOR checked: 02/20/2025 Pill count completed for Tramadol (Ultram), count today is 0 , anticipated count should be 0, this is as expected. Vital Signs Pain Score: 4 Pain Loc: Back Pain Education: Yes Additional pain site: L shoulder, hands, L hip, knees, feet Last PCP visit: 01/01/25 BPI completed on: 02/20/2025 , pain severity score: 8.5, activity interference score: 1 Opioid risk tool completed, low risk HUSSEIN 7 form completed, total score 15. Controlled substance agreement signed: Controlled Substance Agreement 02/20/2025 BEATER AND PULPER FEEDER Tier: pending Current Medications[1] Smoking status: Yes sometimes ETOH use: Yes Illicit substances: Denies Marijuana use: Denies, Lab Results Component Value Date POCTHC Negative 02/20/2025 POCCOCAINEUR Negative 02/20/2025 POCOPIATEUR Negative 02/20/2025 DOAUR Negative 02/20/2025 POCAMPHETAMI Negative 02/20/2025 POCBENZODIUR Negative 02/20/2025 POCBARBSCRN Negative 02/20/2025 POCMETHADOUR Negative 02/20/2025 POCBUPSCRN Negative 02/20/2025 POCTCAUR Negative 02/20/2025 POCMDMAUR Negative 02/20/2025 POCOXYCODONE Negative 02/20/2025 POCPHENCYCUR Negative 02/20/2025 PROPOXUR Negative 02/20/2025 FENTANYLURIN Negative 02/20/2025 ASSESSMENT: Encounter Diagnoses Name Primary? Chronic pain syndrome Yes FDC current use of opioid PLAN: Information on pain group given: Yes Information on acupuncture given: Yes Narcan education provided: Yes Narcan prescription: inactive- refill request submitted to provider Pito Singh will continue taking medication as prescribed and follow up at the next [facility] visit or sooner if needed. Pito Singh has verbalized understanding of care plan. Future Appointments Date Time Provider Department Center 04/24/2025 11:30 AM Nikki Evans RN [facility] Nikki Evans RN [1] Current Outpatient Medications: amLODIPine (Norvasc) 2.5 MG tablet, Take 1 tablet (2.5 mg) by mouth Once per day., Disp: 90 tablet,Rfl: 3 atorvastatin (Lipitor) 10 MG tablet, Take 1 tablet (10 mg) by mouth Once per day., Disp: 90 tablet,Rfl: 3 budesonide-formoterol (Breyna) 80-4.5 MCG/ACT inhaler, Inhale 2 puffs in the morning and at bedtime. May take additional 1-2 puffs every 4 hours as needed for asthma symptoms. No more than 12 puffs per 24 hours. Rinse mouth with water after use to reduce aftertaste and incidence of candidiasis., Disp: 1 each, Rfl: 11 gabapentin (Neurontin) 800 MG tablet, Take 1 tablet (800 mg) by mouth 2 times daily., Disp: 180 tablet, Rfl: 3 Gabapentin 10 % cream, Take 800 mg by mouth., Disp: , Rfl: montelukast (Singulair) 10 MG tablet, Take 1 tablet (10 mg) by mouth at bedtime., Disp: 90 tablet, Rfl: 3 Multiple Vitamin (Multi-Vitamin) tablet, Take 1 tablet by mouth Once per day., Disp: 90 tablet, Rfl: 3 mupirocin (Bactroban) 2 % ointment, , Disp: , Rfl: traMADol (Ultram) 50 MG tablet, Take 1 tablet (50 mg) by mouth if needed each day for severe pain or moderate pain., Disp: 28 tablet, Rfl: 0 documented in this encounter Plan of Treatment Upcoming Encounters Date Type Department Care Team (Late st Contact Info) Description 04/24/2025 11:30 AM EST Clinical Support [facility] [address] [place] [address] Nikki Evans RN [address] [place] [address] Scheduled Orders Name Type Priority Associated Diagnoses Orde r Schedule Drug Monitoring, Panel 1, Screen, Urine Lab Routine Chronic pain syndrome Ordered: 02/20/2025 documented as of this encounter Procedures Procedure Name Priority Date/Time Associated Diagnosis Comments POCT FRANCESCA-14 URINE DRUG SCREEN Routine 02/20/2025 11:27 AM EST Chronic pain syndrome documented in this encounter Results * POCT FRANCESCA-14 Urine Drug Screen (02/20/2025 11:27 AM EST) THC Negative Negative Cocaine Screen, Urine Negative Negative Opiate Screen, Urine Negative Negative Methamphetamine Screen Urine Negative Negative Amphetamine Screen, Urine Negative Negative Benzodiazepines Screen, Urine Negative Negative Barbiturate Screen, Urine Negative Negative Methadone Screen, Urine Negative Negative Buprenophine Screen, Urine Negative Negative TCA, Urine Negative Negative MDMA Urine Negative Negative ng/mL Oxycodone Screen, Urine Negative Negative Phencyclidine (PCP), Urine Negative Negative Propoxyphene, Urine Negative Negative Fentanyl, Urine Negative Negative Urine Urine specimen obtained by clean catch procedure / Unknown 02/20/2025 11:27 AM EST Narrative Nikki Evans RN - 02/20/2025 11:27 AM EST .UTOX cup Lot#[id number] Exp. 01/20/26 Internal Pass Control Gabriela Myrick MD POINT OF CARE TEST ENTER/EDIT OR DERABLES Final Result documented in this encounter Visit Diagnoses Diagnosis Chronic pain syndrome- Primary FDC current use of opioid documented in this encounter Additional Health Concerns Assessment Noted Time PHQ-9 Depression Total Score: 23 18/2 025 10:11 AM EDT documented as of this encounter Care Teams Supervisor Seaming Relationship Specialty Start Date End Date Gabriela Myrick MD [address] [place] [address] PCP - General Family Medicine 05/08/11 documented as of this encounter
--- OUTSIDE RECORDS SUMMARY | 2025-02-20 16:53 | XMS_ITS | Encounter Summary ---
Author Organization [employer] Address [address] [facility] 7t [place] [address] Care Team Providers Care Commissary Manager Name Role Phone Gabriela Myrick MD Primary Care Provider [phone] Encounter Details Date Type Department Care Team (Latest Contact Info) Description 04/14/2020 Abstract [facility] CONVERSIONS Dental, Provider, DDS Social History Tobacco Use Types Packs/Day Years Used Date Smoking Tobacco: Never Assessed Sex and Gender Information Value Date Recorded Sex Assigned at Male 02/13/2022 10:15 AM EDT Legal Sex Male 10:15 AM EDT Gender Identity Male 02/13/2022 10:15 AM EDT Sexual Orientation Straight 02/13/2022 10 :15 AM EDT documented as of this encounter Plan of Treatment Upcoming Encounters Date Type Department Care Team (Late st Contact Info) Description 04/24/2025 11:30 AM EST Clinical Support [facility] MEDICINE [address] [place] [address] Nikki Evans RN [address] [place] [address] documented as of this encounter Visit Diagnoses Not on filedocumented in this encounter Care Teams Commissary Manager Relationship Specialty Start Date End Date Gabriela Myrick MD [address] [place] [address] PCP - General Family Medicine 05/08/11 documented as of this encounter
--- OUTSIDE RECORDS SUMMARY | 2025-02-20 16:53 | XMS_ITS | Encounter Summary ---
Author Organization [employer] Address [address] [facility] 7t [place] [address] Care Team Providers Care Supervisor Engraving Name Role Phone Gabriela Myrick MD Primary Care Provider [phone] Reason for Referral * Consultation (Routine) - Closed Specialty Diagnoses / Procedures Referred By Doreen baum Referred To Contact Orthopaedic Surgery Diagnoses Left hip pain Gabriela Myrick MD [address] [place] [address] Phone: tel: fax: [facility] [address] [place] [address] Phone: tel: Referral ID Status Reason Start Date Expiration Date V isits Requested Visits Authorized [id number] Closed Specialty Services Required 06/20/2024 06/20/2025 1 1 Encounter Details Date Type Department Care Team (Late st Contact Info) Description 06/20/2024 Orders Only [facility] [address] [place] [phone] Gabriela Myrick MD [address] [place] [address] [phone] Left hip pain (Primary Dx) Social History [...] with others, in a hotel, in a retirement, living outside on the street, on a [...] Description 04/24/2025 11:30 AM EST Clinical Support [facility] [address] [place], [place] [phone] Nikki Evans RN [address] [place], [place] [phone] Scheduled Referrals Name Type Priority Associated Diagnoses [...] as of this encounter Care Teams Supervisor Engraving Relationship Specialty Start Date End Date Gabriela Myrick MD [address] [place] [address] PCP - General Family Medicine 05/08/11 documented as of this encounter
--- OUTSIDE RECORDS SUMMARY | 2025-02-20 16:53 | XMS_ITS | Encounter Summary ---
Author Organization [employer] Address [address] [facility] 7t [place] [address] Care Team Providers Care Academic Tutor Name Role Phone Gabriela Myrick MD Primary Care Provider [phone] Reason for Referral * Consultation (Urgent) - Closed Specialty Diagnoses / Procedures Referred By Doreen baum Referred To Contact Urology Diagnoses Elevated PSA Gabriela Myrick MD [address] [place] [address] Phone: tel: fax: [facility] Referral ID Status Reason Start Date Expiration Date V isits Requested Visits Authorized [id number] Closed Specialty Services Required 11/05/2024 11/05/2025 1 1 Encounter Details Date Type Department Care Team (Late st Contact Info) Description 11/05/2024 Orders Only [facility] [address] [place] [address] [phone] Gabriela Myrick MD [address] [place] [address] [phone] Elevated PSA (Primary Dx) Social History Tobacco Use Types [...] with others, in a hotel, in a prison, living outside on the street, on a [...] Description 04/24/2025 11:30 AM EST Clinical Support [facility] [address] [place] [address] Nikki Evans RN [address] [place] [address] Scheduled Referrals Name Type Priority Associated Diagnoses Orde r Schedule Referral to Urology Outpatient Referral Urgent Elevated PSA Expected: 11/05/2024 (Approximate), Expires: 11/05/2025 documented as of this encounter Visit Diagnoses Diagnosis Elevated PSA- Primary Elevated prostate specific antigen (PSA) documented in this encounter Additional Health Concerns Assessment Noted Time PHQ-9 Depression Total Score: 14 025 1:08 PM EST documented as of this encounter Care Teams Academic Tutor Relationship Specialty Start Date End Date Gabriela Myrick MD [address] [place] [address] PCP - General Family Medicine 05/08/11 documented as of this encounter
--- OUTSIDE RECORDS SUMMARY | 2025-02-20 16:53 | XMS_ITS | Encounter Summary ---
Author Organization [employer] Address [address] [facility] 7t [place] [address] Care Team Providers Care Curriculum Designer Name Role Phone Gabriela Myrick MD Primary Care Provider [phone] Encounter Details Date Type Department Care Team ([facility] st Contact Info) Description 02/20/2025 Refill [facility] [address] [place] [address] Nikki Evans, WAYNE [address] [place] [address] Chronic pain of left lower extremity Social History Tobacco Use Types Packs/Day Years [...] with others, in a hotel, in a fci, living outside on the street, on a [...] Goss RN documented as of this encounter Miscellaneous Notes * Telephone Encounter - Nikki Evans RN - 02/20/2025 11:33 AM EST Pt here for initial MENTAL HEALTH AIDES TEACHER [place]. Very emotional, crying. Stated his mom passed 2 days ago and he has been going through a lot. Offered [facility] services, pt declined at this time. Admitted to using cocaine last night d/t his mom's passing. Utox negative for all tested substances. Sending it out to the lab for confirmation. Pt educated of the risks associated with the combination of illicit drugs and controlled sub stances and went over MENTAL HEALTH AIDES TEACHER Agreement rules, verbalized understanding. documented in this encounter Plan of Treatment Upcoming Encounters Date Type Department Care Team (Late st Contact Info) Description 04/24/2025 11:30 AM EST Clinical Support [facility] MEDICINE [address] [place] [address] Nikki Evans RN [address] [place] [address] documented as of this encounter Visit Diagnoses Diagnosis Chronic pain of left lower extremity documented in this encounter Additional Health Concerns Assessment Noted Time PHQ-9 Depression Total Score: 23 025 10:11 AM EDT documented as of this encounter Care Teams Curriculum Designer Relationship Specialty Start Date End Date Gabriela Myrick MD [address] [place] [address] PCP - General Family Medicine 05/08/11 documented as of this encounter
--- OUTSIDE RECORDS SUMMARY | 2025-02-20 16:53 | XMS_ITS | Encounter Summary ---
Author Organization [employer] Address [address] [facility] 7t [place] [address] Care Team Providers Care Drupal Developer Name Role Phone Gabriela Myrick MD Primary Care Provider [phone] Encounter Details Date Type Department Care Team (Late st Contact Info) Description 10/17/2023 Orders Only [facility] MEDICINE [address] [place] [address] Gabriela Myrick MD [address] [place] [address] Social History Tobacco Use Types Packs/Day Years [...] Description 04/24/2025 11:30 AM EST Clinical Support [facility] [address] [place] [address] Nikki Evans, WAYNE [address] [place] [address] documented as of this encounter Visit Diagnoses Not on filedocumented in this encounter Care Teams Drupal Developer Relationship Specialty Start Date End Date Gabriela Myrick MD [address] [place] [address] PCP - General Family Medicine 05/08/11 documented as of this encounter
--- OUTSIDE RECORDS SUMMARY | 2025-02-20 16:53 | XMS_ITS | Encounter Summary ---
Author Organization [employer] Address [address] [facility] 7t [place] [address] Care Team Providers Care Weather Strip Installer Name Role Phone Gabriela Myrick MD Primary Care Provider [phone] Reason for Visit * Reason Comments Med Refill Encounter Details Date Type Department Care Team ([facility] st Contact Info) Description 01/02/2024 Refill [facility] MED[facility]INE [address] [place] [address] Raquel Braswell, ANP [address] [place] [address] Chronic pain syndrome Social History Tobacco Use [...] Description 04/24/2025 11:30 AM EST Clinical Support [facility] MEDICINE [address] [place] [address] Nikki Evans, WAYNE [address] [place] [address] documented as of this encounter Visit Diagnoses Diagnosis Chronic pain syndrome documented in this encounter Care Teams Weather Strip Installer Relationship Specialty Start Date End Date Gabriela Myrick MD [address] [place] [address] PCP - General Family Medicine 05/08/11 documented as of this encounter
--- OUTSIDE RECORDS SUMMARY | 2025-02-20 16:53 | XMS_ITS | Encounter Summary ---
Author Organization [employer] Address [address] [facility] 7t [place] [address] Care Team Providers Care Motor Coach Operator Name Role Phone Gabriela Myrick MD Primary Care Provider [phone] Encounter Details Date Type Department Care Team (Latest Contact Info) Description 03/26/2019 Abstract [facility] CONVERSIONS Dental, Provider, DDS Social History [...] Description 04/24/2025 11:30 AM EST Clinical Support [facility]ICINE [address] [place] [address] Nikki Evans RN [address] [place] [address] documented as of this encounter Visit Diagnoses Not on filedocumented in this encounter Care Teams Motor Coach Operator Relationship Specialty Start Date End Date Gabriela Myrick MD [address] [place] [address] PCP - General Family Medicine 05/08/11 documented as of this encounter
--- OUTSIDE RECORDS SUMMARY | 2025-02-20 16:53 | XMS_ITS | Encounter Summary ---
Author Organization [employer] Address [address] [facility] 7t [place] [address] Care Team Providers Care Ride Attendant Name Role Phone Gabriela Myrick MD Primary Care Provider [phone] Reason for Visit * Reason Comments Med Refill Encounter Details Date Type Department Care Team ([facility] st Contact Info) Description 02/20/2025 Refill [facility] MEDICINE [address] [place] [address] Gabriela Myrick MD [address] [place] [address] Chronic pain of left lower extremity Social [...] with others, in a hotel, in a penitentiary, living outside on the street, on a [...] Goss RN documented as of this encounter Plan of Treatment Upcoming Encounters Date Type Department Care Team (Late st Contact Info) Description 04/24/2025 11:30 AM EST Clinical Support [facility] MEDICINE [address] [place] [address] Nikki Evans, WAYNE [address] [place] [address] documented as of this encounter Visit Diagnoses Diagnosis Chronic pain of left lower extremity documented in this encounter Additional Health Concerns Assessment Noted Time PHQ-9 Depression Total Score: 23 025 10:11 AM EDT documented as of this encounter Care Teams Ride Attendant Relationship Specialty Start Date End Date Gabriela Myrick MD [address] [place] [address] PCP - General Family Medicine 05/08/11 documented as of this encounter
--- OUTSIDE RECORDS SUMMARY | 2025-02-20 16:53 | XMS_ITS | Encounter Summary ---
Author Organization [employer] Address [address] [facility] 7t [place] [address] Care Team Providers Care Catch Basin Cleaner Name Role Phone Gabriela Myrick MD Primary Care Provider [phone] Encounter Details Date Type Department Care Team ([facility] st Contact Info) Description 02/20/2025 Orders Only [facility] MEDICINE [address] [place] [address] Gabriela Myrick MD [address] [place] [address] Cocaine use (Primary Dx) Social History Tobacco Use Types Packs/Day Years Used Date Smoking Tobacco: Never Smokeless Tobacco: Never Alcohol Use Standard Drinks/Week Comments Not Currently 0 (1 standard drink = 0.6 oz pur e alcohol) Depression Answer Date Recorded Patient Health Questionnaire-9 Score 23 2025 Patient Health Questionnaire-9 Score 23 2025 Last PHQ-9: Questionnaire Data Not on [...] Description 04/24/2025 11:30 AM EST Clinical Support [facility] [address] [place] [address] Nikki Evans, WAYNE [address] [place] [address] Scheduled Orders Name Type Priority Associated Diagnoses Orde r Schedule Drug Monitoring, Cocaine Metabolite, Quantitative, Urine Lab Routine Cocaine use Expected: 02/20/2025 (Approximate), Expires: 02/20/2026 documented as of this encounter Visit Diagnoses Diagnosis Cocaine use- Primary documented in this encounter Additional Health Concerns Assessment Noted Time PHQ-9 Depression Total Score: 23 025 10:11 AM EDT documented as of this encounter Care Teams Catch Basin Cleaner Relationship Specialty Start Date End Date Gabriela Myrick MD [address] [place] [address] PCP - General Family Medicine 05/08/11 documented as of this encounter
--- OUTSIDE RECORDS SUMMARY | 2025-02-20 16:53 | XMS_ITS | Encounter Summary ---
Author Organization [employer] Address [address] [facility] 7t [place] [address] Care Team Providers Care Reservation Manager Name Role Phone Gabriela Myrick MD Primary Care Provider [phone] Encounter Details Date Type Department Care Team (Late Contact Info) Description 03/27/2023 Abstract [facility] ADULT DENTAL [address] [place] [address] Domo Kilgore DMD [address] [place] [address] Social History Tobacco Use Types Packs/Day Years [...] Encounters Date Type Department Care Team (Late Contact Info) Description 04/24/2025 11:30 AM EST Clinical Support [facility] MEDICINE [address] [place] [address] Nikki Evans RN [address] [place] [address] documented as of this encounter Visit Diagnoses Not on filedocumented in this encounter Care Teams Reservation Manager Relationship Specialty Start Date End Date Gabriela Myrick MD [address] [place] [address] PCP - General Family Medicine 05/08/11 documented as of this encounter
--- OUTSIDE RECORDS SUMMARY | 2025-02-20 16:53 | XMS_ITS | Encounter Summary ---
Author Organization [employer] Address [address] [facility] 7t [place] [address] Care Team Providers Care Insulator Tester Name Role Phone Gabriela Myrick MD Primary Care Provider [phone] Encounter Details Date Type Department Care Team (Latest Contact Info) Description 02/20/2025 Travel Social History Tobacco Use Types Packs/Day [...] t he electric, gas, oil or water [employer] threatened to shut off services in your [...] Description 04/24/2025 11:30 AM EST Clinical Support [facility] MEDICINE [address] [place] [address] Nikki Evans RN [address] [place], [place] [phone] documented as of this encounter Visit Diagnoses Not on filedocumented in this encounter Additional Health Concerns Assessment Noted Time PHQ-9 Depression Total Score: 025 10:11 AM EDT documented as of this encounter Care Teams Insulator Tester Relationship Specialty Start Date End Date Gabriela Myrick MD [address] [place] [address] PCP - General Family Medicine 05/08/11 documented as of this encounter
--- OUTSIDE RECORDS SUMMARY | 2025-02-20 16:53 | XMS_ITS | Encounter Summary ---
Author Organization [employer] Address [address] [facility] 7t [place] [address] Care Team Providers Care Patient Scheduling Coordinator Name Role Phone Gabriela Myrick MD Primary Care Provider [phone] Encounter Details Date Type Department Care Team (Late st Contact Info) Description 06/16/2024 Orders Only [facility] [address] [place] [address] Gabriela Myrick MD [address] [place] [address] Moderate persistent asthma without complication (Primary Dx) [...] with others, in a hotel, in a mcc, living outside on the street, on a [...] Description 04/24/2025 11:30 AM EST Clinical Support [facility] [address] [place] [address] Nikki Evans RN [address] [place] [address] documented as of this encounter Visit Diagnoses Diagnosis Moderate persistent asthma without complication- Primary documented in this encounter Additional Health Concerns Assessment Noted Time PHQ-9 Depression Total Score: 14 025 1:08 PM EST documented as of this encounter Care Teams Patient Scheduling Coordinator Relationship Specialty Start Date End Date Gabriela Myrick MD [address] [place] [address] PCP - General Family Medicine 05/08/11 documented as of this encounter
--- OUTSIDE RECORDS SUMMARY | 2025-02-20 16:53 | XMS_ITS | Clinical Summary ---
Author Organization [employer] Address [address] [facility] 7t [place] [address] Care Team Providers Care Ship'S Captain Name Role Phone Gabriela Myrick MD Primary Care Provider [phone] Allergies Active Allergy Reactions Criticality Noted Date Comments Morphine Hives 04/22/2010 Penicillins Hives 04/21/2010 Shellfish Allergy 02/13/2023 Other reaction(s): shortness of breath, hives Medications * This document contains information received from the source organization and may not represent a complete record from that organization. Gabapentin 10 % cream Take 800 mg by mouth. 08/11/19 20 Active Multiple Vitamin (Multi-Vitamin) tablet Take 1 tablet by mouth Once per day. 90 tablet 3 09/13/19 24 Active montelukast (Singulair) 10 MG tabletIndicatio ns:Moderate persistent asthma without complication Take 1 tablet (10 mg) by mouth at bedtime. 90 tablet 3 06/12/19 25 Active amLODIPine (Norvasc) 2.5 MG tabletIndicatio ns:Hypertension , unspecified type Take 1 tablet (2.5 mg) by mouth Once per day. 90 tablet 3 06/12/19 25 Active mupirocin (Bactroban) 2 % ointment 09/05/19 25 Active gabapentin (Neurontin) 800 MG tabletIndicatio ns:Chronic pain syndrome,Chroni c pain of left lower extremity Take 1 tablet (800 mg) by mouth 2 times daily. 180 tablet 3 09/27/19 25 Active atorvastatin (Lipitor) 10 MG tablet Take 1 tablet (10 mg) by mouth Once per day. 90 tablet 3 01/02/20 25 2025 Active budesonide-form oterol (Breyna) 80-4.5 MCG/ACT inhalerIndicati ons:Moderate persistent asthma without complication Inhale 2 puffs in the morning and at bedtime. May take additional 1-2 puffs every 4 hours as needed for asthma symptoms. No more than 12 puffs per 24 hours. Rinse mouth with water after use to reduce aftertaste and incidence of candidiasis. 1 each 01/02/20 25 2025 Active traMADol (Ultram) 50 MG tabletIndicatio ns:Chronic pain of left lower extremity Take 1 tablet (50 mg) by mouth if needed each day for severe pain or moderate pain. 28 tablet 02/21/20 Active naloxone (Narcan) 4 mg/0.1 mL nasal spray Administer 1 spray (4 mg) into affected nostril(s) if needed for opioid reversal. May repeat every 2-3 minutes if needed, alternating nostrils, until medical assistance becomes available. 2 each 02/21/20 25 2025 Active traMADol (Ultram) 50 MG tabletIndicatio ns:Chronic pain of left lower extremity Take 1 tablet (50 mg) by mouth if needed each day for severe pain or moderate pain. 28 tablet 01/02/20 25 2024 Discontinued(R eorder (will not trigger notification to Pharmacy)) Active Problems Problem Noted Date Diagnosed Date intermediate current use of opioid 02/20/2025 Elevated PSA 01/02/2025 Assessment & Plan (01/02/2025 7:02 AM EDT): - 11/05/2024 PSA 11.65 - patient cancelled his appointment in November; advised to reschedule Left hip pain 06/20/2024 Health care maintenance 06/12/2024 Assessment & Plan (06/12/2024 3:05 PM EST): - physical exam on 06/12/24 - colon cancer screening - colonoscopy in 2020 - prostate cancer screening - PSA ordered - [facility] 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 Recommended to get prescription glasses. Patient was given a list of where he can make prescription glasses. Assessment & Plan (06/13/2024 7:10 AM EST): - refer to eye care Assessment & Plan (09/13/2023 12:28 PM EDT): - refer to eye care Hypertension 03/16/2023 03/16/2023 Assessment & Plan (01/02/2025 6:56 AM EDT): -Goal BP < 130/80 per ACC/AHA guideline (Treatment threshold >=140/90) - BP not at goal, possibly due to current emotional state - EKG in September 2024 showed no significant abnormality - Continue working on lifestyle modifications - Recommended self-monitoring BP. - Continue current medications: amlodipine 2.5 mg daily, improve adherence - Recommended to reduce alcohol, cocaine, and excessive sodium consumption - Return for BP check in 2-3 weeks with his medication bottle. If SBP > 140 in the clinic or > 130 at home with confirmed adequate adherence to amlodipine 2.5 mg, increase amlodipine to 5 mg daily. Assessment & Plan (10/07/2024 3:38 PM EDT): -Goal BP < 130/80 per ACC/AHA guideline (Treatment threshold >=140/90) - BP not at goal - EKG no significant abnormality - Continue working on lifestyle modifications - Recommended self-monitoring BP. - Continue current medications: amlodipine 2.5 mg daily, improve adherence - Recommended to reduce alcohol, cocaine, and excessive sodium consumption Assessment & Plan (06/20/2024 4:31 PM EST): [...] Shoulder pain 02/24/2016 03/16/2023 Assessment & Plan (01/02/2025 7:11 AM EDT): - left side is worse than the right side - previously following with the orthopedist - referred back in August 2023; patient missed appointment Assessment & Plan (10/07/2024 3:41 PM EDT): - left side is worse than the right side - previously following with the orthopedist - referred back in August 2023; patient missed appointment Assessment & Plan (06/12/2024 3:17 PM EST): [...] orthopedist Asthma 03/02/2015 03/16/2023 Assessment & Plan (01/02/2025 7:12 AM EDT): - Last exacerbation requiring systemic steroid > 1 year - Continue montelukast (Singulair) 10 MG tablet 06/12/24 - Continue SMART with budesonide-formoterol (Breyna) 80-4.5 MCG/ACT inhaler 06/12/24 Assessment & Plan (06/20/2024 4:30 PM EST): [...] of colon 11/25/2014 023 Assessment & Plan (10/07/2024 3:39 PM EDT): - Most recent colonoscopy by Dr. Shore in Apr 2020, normal but suboptimal prep - recommended to repeat in 5 year Assessment & Plan (06/12/2024 3:15 PM EST): - Most recent colonoscopy by Dr. Shore in Apr 2020, normal but suboptimal prep - recommended to repeat in 5 years Chronic pain syndrome 07/09/2014 03/16/2023 Assessment & Plan (01/02/2025 7:12 AM EDT): - chronic left shoulder pain and leg pain - history of fracture of left leg - previously on gabapentin and tramadol - currently prescribed gabapentin and tramadol with caution; advised to complete his lab before next refill - schedule [facility] visit Assessment & Plan (10/07/2024 3:42 PM EDT): - chronic left shoulder pain and leg pain - history of fracture of left leg - previously on gabapentin and tramadol - currently prescribed gabapentin and tramadol with caution; advised to complete his lab before next refill - schedule [facility] visit Assessment & Plan (06/12/2024 10:32 AM EST): [...] Erectile dysfunction 07/09/2014 03/16/2023 Assessment & Plan (01/02/2025 7:01 AM EDT): - referred to urology - patient cancelled appointment Assessment & Plan (06/20/2024 4:31 PM EST): - check PSA Chronic pain of left lower extremity 07/09/2014 03/16/2023 Assessment & Plan (01/02/2025 7:12 AM EDT): - knee XR in August 2023 Chronic tricompartmental osteoarthritis of the right knee, worst at the medial tibiofemoral compartment - chronic left leg pain due to history of fracture - patient has been using his hand-crafted cane for ambulation - continue judicious use of tramadol and gabapentin - advised to answer our calls and keep appointment with our nurse for [facility] appointment Assessment & Plan (10/07/2024 3:41 PM EDT): - knee XR in August 2023 Chronic tricompartmental osteoarthritis of the right knee, worst at the medial tibiofemoral compartment - chronic left leg pain due to history of fracture - patient has been using his hand-crafted cane for ambulation - continue judicious use of tramadol and gabapentin Assessment & Plan (06/12/2024 3:22 PM EST): [...] Mood disorder 02/12/2014 03/16/2023 Assessment & Plan (01/02/2025 7:10 AM EDT): - previously diagnosed and treated for schizoaffective disorder (bipolar type); bipolar disorder; anxiety; MDD; PTSD - prescribed fluoxetine in August 2023, but patient has not been taking it - previously tried olanzapine, lurasidone, fluoxetine, hydroxyzine - patient reports ineffectiveness of antipsychotics - evaluated by clinician in August 2023, May 2024, and September 2024 and was referred to off-site psych - seen by [facility] behavioral health service clinician again today, and is now connected with [facility] clinic, for pharmacological and cognitive behavioral therapies. Assessment & Plan (10/07/2024 3:40 PM EDT): - most likely bipolar disorder - alternative Dx: schizoaffective disorder - prescribed fluoxetine in August 2023, but patient has not been taking it - patient reports ineffectiveness of antipsychotics - evaluated by clinician in August 2023, and was referred to off-site psych - referred again for integrated behavioral health service in May 2024 Assessment & Plan (06/12/2024 3:24 PM EST): - most likely bipolar disorder - alternative Dx: schizoaffective disorder - prescribed fluoxetine in August 2023, but patient has not been taking it - patient reports ineffectiveness of antipsychotics - evaluated by clinician in August 2023, and was referred to off-site psych - will refer again for [facility] behavioral health service Assessment & Plan (09/18/2023 [...] intervention , Patient to reach out to [facility] team as needed, Comply with medication , Patient to engage in OP therapy , and Patient to reach out to [facility] as needed Assessment & Plan (09/13/2023 12:27 PM EDT): - most likely bipolar disorder - alternative Dx: schizoaffective disorder - restart Prozac - patient reports ineffectiveness of antipsychotics - evaluated by clinician today - will refer him to psychiatrist Inguinal hernia 02/11/2014 03/16/2023 Dyslipidemia 09/07/2011 03/16/2023 Assessment & Plan (01/02/2025 6:57 AM EDT): - 10 year ASCVD risk is > 10% - Last lipid profile: October 2024. Recheck lab prior to next visit. - Start atorvastatin 10 mg at bedtime - Continue working on lifestyle modifications Assessment & Plan (10/07/2024 3:38 PM EDT): - lab has been ordered. Encouraged to complete. - work on lifestyle modifications Assessment & Plan (06/12/2024 3:06 PM EST): - will check lab - work on lifestyle modifications Assessment & Plan (09/13/2023 12:28 PM EDT): - will check lab - work on lifestyle modifications Resolved Problems Problem Noted Date Diagnosed Date Resolved Date Anxiety 09/07/2011 03/16/2023 07/12/2023 Encounters * This document contains information received from the source organization and may not represent a complete record from that organization. Date Type Department Care Team Description 02/20/2025 10:30 AM EST Clinical Support [facility] [address] [place] [address] Nikki Evans RN Chronic pain syndrome (Primary Dx); terminologist current use of opioid 02/20/2025 Orders Only [facility] [address] [place] [address] Gabriela Myrick MD Cocaine use (Primary Dx) 02/20/2025 Refill [facility] [address] [place] [address] Nikki Evans RN Chronic pain of left lower extremity 02/20/2025 Refill [facility] [address] [place] [address] Gabriela Myrick MD Chronic pain of left lower extremity 02/20/2025 Travel 01/02/2025 Telephone [facility] [address] [place] [address] Gabriela Myrick MD 01/02/2025 Telephone [facility] [address] [place] [address] Nikki Evans RN 2025 10:00 AM EDT Office Visit [address] [address] Gabriela Myrick MD Chronic pain of left lower extremity (Primary Dx); Moderate persistent asthma without complication; Dietary counseling; Exercise counseling; Overweight; Hypertension, unspecified type; Dyslipidemia; Blurry vision; Erectile dysfunction, unspecified erectile dysfunction type; Elevated PSA; Mood disorder (CMS/HCC); Chronic left shoulder pain; Left hip pain; Chronic pain syndrome; Trigger ring finger of left hand [address] [address] Gabriela Myrick MD Telephone call 2025 Travel 12/31/[address] [address] Gabriela Myrick MD chart prep 11/26/[address] [address] Gabriela Myrick MD from Last 3 Months Immunizations Immunization Administration Dates Next Due Hep B, adult [...] with others, in a hotel, in a [facility], living outside on the street, on a [...] Sign Reading Time Taken Comments Blood Pressure 134/78 2025 10:13 AM EDT Pulse 76 2025 10:13 AM EDT Temperature 36.2 C (97.1 F) 2025 10:13 AM EDT Respiratory Rate 16 2025 10:13 AM EDT Oxygen Saturation 98% 2025 10:13 AM EDT Inhaled Oxygen Concentration - - Weight 77.7 kg (171 lb 6.4 oz) 09/25/2024 10:39 AM EDT Height 172.7 cm (5' 8 ) 09/25/2024 10:39 AM EDT Body Mass Index 26.06 09/25/2024 10:39 AM EDT Plan of Treatment Upcoming Encounters Date Type Department Care Team (Late st Contact Info) Description 04/24/2025 11:30 AM EST Clinical Support [facility] [address] [place] [phone] Nikki Evans, RN [address] [place] [address] Health Maintenance Due Date Last Done Comments CT Colonography 1964 FIT DNA/Cologuard 1964 FIT 1964 FOBT 1964 Sigmoidoscopy 1965 Dental Prophylaxis 10/14/2020 04/14/2020, 1 05/27/2018, 08/31/2015, Additional history exists Dental X-Ray: Full Mouth 02/12/2022 019, 03/03/2014, 03/03/2014 RSV Patients and Patients Aged 60 years or older (1 - Risk 60-74 years 1-dose series) 2024 COVID-19 Vaccine ( season) 2024 Influenza Vaccine (#1) 2024 5, 02/07/2021, 03/22/2020, Additional history exists Dental Oral Exam 03/09/2025 09/05/2024, , 02/11/2019, Additional history exists Colonoscopy 05/03/2025 05/03/2020 Colorectal Cancer Screening 05/03/2025 Alcohol/Substance Use Screening 06/12/2025 06/12/2024 SDOH Screening 06/12/2025 06/12/2024 Depression Monitoring 07/01/2025 2025, 025 Dental X-Ray: Bitewings 09/06/2025 09/06/19, 02/13/2023, 04/14/2020, Additional history exists Disability Screening 09/25/2025 09/25/2024 Tobacco Screening 01/02/2026 01/02/2025 DTaP/Tdap/Td Vaccines (3 - Td or Tdap) 04/29/2028 04/29/2018, 05/08/2011, 12/03/2008 Lipid Panel 11/05/2029 11/05/2024 Hepatitis B Vaccines Completed 01/28/2007, 08/12/2002, 08/29/2001 Zoster Vaccines Completed 05/24/2020, 03/22/2020 Pneumococcal Vaccine: 50+ Years Completed 06/12/2024, 05/08/2011, 05/17/2005 HIV Screening Completed 11/05/2024, 03/12/2023 Hepatitis C Screening Completed 11/05/2024, 023 HIB Vaccines Aged Out No longer eligi [...] patient's age to complete this topic Meningococcal B Vaccine Aged Out No l onger eligible based on patient's age to complete [...] 02/20/2025 11:27 AM EST Chronic pain syndrome HEPATITIS C AB W/REFL TO HCV RNA, QN, PCR Routine 11/05/2024 8:49 AM EDT Routine screening for STI (sexually transmitted infection) HIV 1/2 ANTIGEN/ANTIBODY, FOURTH GENERATION W/RFL Routine 11/05/2024 8:49 AM EDT Routine screening for STI (sexually transmitted infection) LIPID PANEL WITH REFLEX TO DIRECT LDL Routine 11/05/2024 8:49 AM EDT Dyslipidemia BITEWINGS - 4 RADIOGRAPHIC IMAGES Routine 09/05/2024 8:30 AM EDT PERIODIC ORAL EVALUATION - ESTABLISHED PATIENT Routine 09/05/2024 8:30 AM EDT HM COLONOSCOPY Routine 05/03/2020 PROPHYLAXIS - ADULT Routine 04/14/2020 1 2:00 AM EST INTRAORAL - COMPLETE SERIES OF RADIOGRAPHIC IMAGES Routine 02/11/2019 12:00 AM EDT from Last 3 Months or Most Recently Relevant to Health Maintenance Results * POCT FRANCESCA-14 Urine Drug Screen [...] - 02/20/2025 11:27 AM EST .UTOX cup Lot#[id number] Exp. 01/20/26 Internal Pass Control Gabriela Myrick MD POINT OF CARE TEST ENTER/EDIT OR DERABLES Final Result * (ABNORMAL) Lipid Panel with Reflex to Direct LDL (11/05/2024 8:49 AM EDT) Triglycerides 108 <150 mg/dL [facility] Comment:Desirable Triglyceri de: less than 150 mg/dLBorderline High Triglyceride 150-199 mg/dLHigh Triglyceride: 200-499 mg/dLVery High Triglyceride: greater than or equal to 5OO mg/dL Cholesterol 218(H) <200 mg/dL [facility] Comment:Desirable Cholestero l: less than 200 mg/dLBorderline High Cholesterol: 200-239 mg/dLHigh Cholesterol: greater than 239 mg/dL LDL Cholesterol Calculated 145(H) <100 mg/dL [facility] Comment:Desirable LDL: less than 100 mg/dLNear Optimal/Above Optimal LDL: 110- 129 mg/dLBorderline High LDL: 130-159 mg/dLHigh LDL: 160-189 mg/dLVery High LDL: greater than or equal to 190 mg/dL HDL Cholesterol 52 >40 mg/dL [facility] Comment:Desirable HDL: great er than 40 mg/dL Note: This HDL assay may give artificially low results in patients with liver disease. Blood 11/05/2024 8:49 AM EDT 11/05/2024 11:13 AM EDT us Gabriela Myrick MD LAB BLOOD ORDERABLES Final Resul t [facility] [address] [place] [phone] * Hepatitis C Antibody with Reflex to HCV, RNA, Quantitative, Real-Time PCR (11/05/2024 8:49 AM EDT) Hepatitis C Antibody Nonreactive Nonreactive [facility] Comment:Antibodies to HCV no t detected; does not exclude early acuteHCV infection. Blood Venous blood specimen / Unknown 11/05/2024 8:49 AM EDT 11/05/2024 11:07 AM EDT Gabriela Myrick MD LAB BLOOD ORDERABLES Final Resul t Performing Organization Address [facility] Co de Phone Number [facility] [address] [place] [phone] * HIV-1/2 Antigen and Antibodies, Fourth Generation, with Reflexes (11/05/2024 8:49 AM EDT) HIV AB/AG Nonreactive Nonreactive [facility] Comment:HIV-1 p24 Ag and/or HIV-1/HIV-2 Ab not detected.A test result that is nonreactive does not exclude thepossibility of exposure to or infection with HIV-1 and/orHIV-2. Nonreactive results in this assay for individualswith prior exposure to HIV-1 and/or HIV-2 may be due toantigen and antibody levels that are below the limit ofdetection of this assay.The PRX HIV Ag/Ab Combo assay result andsupplemental assay results should be interpreted inconjunction with the patient's clinical presentation,history and other laboratory results. If the results areinconsistent with clinical evidence, additional testing issuggested to confirm the result. Blood Venous blood specimen / Unknown 11/05/2024 8:49 AM EDT 11/05/2024 11:07 AM EDT Gabriela Myrick MD LAB BLOOD ORDERABLES Final Resul t Performing Organization Address [facility] Co de Phone Number [facility] [address] [place] [phone] [phone] * Hm Colonoscopy (05/03/2020) Colonoscopy Normal Normal Andrew Shore MD HEALTH MAINTENANCE Edited Re sult - Final from Last 3 Months or Most Recently Relevant to Health Maintenance Insurance MEDICARE [facility] Care Teams Ship'S Captain Relationship Specialty Start Date End Date Gabriela Myrick MD [address] [place] [address] PCP - General Family Medicine 05/08/11
--- OUTSIDE RECORDS SUMMARY | 2025-02-20 16:53 | XMS_ITS | Encounter Summary ---
Author Organization [employer] Address [address] [facility] [address]t [place] [address] Care Team Providers Care Laydown Machine Operator Name Role Phone Gabriela Myrick MD Primary Care Provider Encounter Details Date Type Department Care Team (Late Contact Info) Description 03/20/2023 Abstract [facility] [address] [place] [address] Gabriela Myrick MD [address] [place], [place] [phone] Social History Tobacco Use Types Packs/Day Years [...] Description 04/24/2025 11:30 AM EST Clinical Support [facility] [address] [place] [phone] Nikki Evans RN [address] [place], [place] [phone] documented as of this encounter Procedures Procedure Name Priority Date/Time Associated Diagnosis Comments COLONOSCOPY Routine 05/03/2020 documented in this encounter Results * Colonoscopy (05/03/2020) Colonoscopy Normal Normal us Andrew Shore MD HEALTH MAINTENANCE Edited Re sult - Final documented in this encounter Visit Diagnoses Not on filedocumented in this encounter Care Teams Laydown Machine Operator Relationship Specialty Start Date End Date Gabriela Myrick MD [address] [place] [phone] PCP - General Family Medicine 05/08/11 documented as of this encounter
--- OUTSIDE RECORDS SUMMARY | 2025-02-20 16:53 | XMS_ITS | Encounter Summary ---
Author Organization [employer] Address [address] [facility] [address] [place] [address] Care Team Providers Care Snowboard Designer Name Role Phone Gabriela Myrick MD Primary Care Provider Encounter Details Date Type Department Care Team (Late Contact Info) Description 03/20/2023 Abstract [facility] [address] [place] [address] Domo Kilgore DMD [address] [place] [address] Social History Tobacco Use Types Packs/Day Years [...] Description 04/24/2025 11:30 AM EST Clinical Support [facility] [address] [place] [address] Nikki Evans RN [address] [place] [address] documented as of this encounter Visit Diagnoses Not on filedocumented in this encounter Care Teams Snowboard Designer Relationship Specialty Start Date End Date Gabriela Myrick MD [address] [place] [address] PCP - General Family Medicine 05/08/11 documented as of this encounter
== END 2025-02-20 16:29 | disposition home or self-care (01) ==
LOC: HO.HHCLNP 16:28
PROVIDERS: Visit Provider Family Medicine
DX: G89.4 Chronic pain syndrome (principal); F14.90 Cocaine use, unspecified, uncomplicated
CPT/HCPCS: 36415; 80353